=== PATIENT | female | born 1985 | race Caucasian/White ===

== ENCOUNTER → 2019-08-11 12:47 | Outpatient (BNVA) | payer MEDICARE, SELFPAY | PROVIDERS: Family Provider Family Medicine; PCP Family Medicine; Visit Provider Psychiatry & Neurology Psychiatry | DX: F33.42 Major depressive disorder, recurrent, in full remission (principal); F17.210 Nicotine dependence, cigarettes, uncomplicated; F70 Mild intellectual disabilities | CPT/HCPCS: 99213 ==

== ENCOUNTER → 2019-09-16 07:59 | Outpatient (BNVA) | payer MEDICARE, SELFPAY | PROVIDERS: Family Provider Family Medicine; PCP Family Medicine; Visit Provider Psychiatry & Neurology Psychiatry | DX: F33.42 Major depressive disorder, recurrent, in full remission (principal); F17.210 Nicotine dependence, cigarettes, uncomplicated; F70 Mild intellectual disabilities; F33.2 Major depressive disorder, recurrent severe without psychotic features | CPT/HCPCS: 99214 ==

== ENCOUNTER → 2019-09-27 07:34 | Outpatient (BNVA) | payer MEDICARE, SELFPAY | PROVIDERS: Family Provider Family Medicine; PCP Family Medicine; Visit Provider Psychiatry & Neurology Psychiatry | DX: F33.42 Major depressive disorder, recurrent, in full remission (principal); F17.210 Nicotine dependence, cigarettes, uncomplicated; F70 Mild intellectual disabilities | CPT/HCPCS: 99213 ==

== ENCOUNTER → 2019-10-11 07:33 | Outpatient (BNVA) | payer MEDICARE, SELFPAY | PROVIDERS: Family Provider Family Medicine; PCP Family Medicine; Visit Provider Psychiatry & Neurology Psychiatry | DX: F33.42 Major depressive disorder, recurrent, in full remission (principal); F70 Mild intellectual disabilities; F17.210 Nicotine dependence, cigarettes, uncomplicated | CPT/HCPCS: 99213 ==

== ENCOUNTER 2019-10-20 10:31 | Emergency (ER) | payer MEDICARE, MEDICAID, SELFPAY ==
[2019-10-20 10:37] VITALS: BP 111/85; PULSE 90; RESP 18; TEMP 36.9; O2SAT 96; BMI 75.8
--- NOTE | 2019-10-20 10:42 | XR_ITS ---
WS: [id number] ANKLE RIGHT TECHNIQUE: 3 views of the right ankle CLINICAL INFORMATION: injury COMPARISON: None. FINDINGS: Diffuse soft tissue edema. Normal medial and lateral malleolus. Normal ankle mortise. No visualized f ractures. XR/XR ankle RT min 3V* 97297 IMPRESSION: Diffuse soft tissue edema. No visualized fractures.
--- NOTE | 2019-10-20 10:44 | ED_ITS ---
HPI - Extremity Injury (Lower) General: Chief Complaint: Extremity Injury, Lower Stated Complaint: FALL / RIGHT ANKLE Time Seen by Provider: 10/20/19 10:35 Source: patient Mode of arrival: wheelchair Limitations: no limitations History of Present Illness: HPI Narrative: Patient is a 34-year-old female who presents to ED today with complaints of right ankle pain after twisting it and falling. Patient states she has not been able to ambulate since the fall due to pain. No other injury sustained. MD complaint: ankle injury Onset (ago): hour(s) Injury: Right: ankle Type of Injury: eversion Place: home Severity: moderate Relieving factors: immobilization Exacerbating factors: weight bearing, movement and palpation Associated symptoms: Reports no associated symptoms Other symptoms: none Review of Systems Musc: Reports: joint pain and joint swelling Neuro: Denies: numbness in extremities or sensory changes [facility] ED PFSH: Medical History (Updated 10/20/19 @ 11:41 by LUIS Russell) Cigarette smoker Major depression, recurrent, full remission Mild intellectual disability Social History Smoking and tobacco status: current every day smoker Current gender identity: Female Physical Exam Const: COMMON NORMALS: no acute distress, patient oriented x3, no limitations and alert NUTRITIONAL APPEARANCE: obese morbidly obese (pts BMI >75) HENMT: COMMON NORMALS: normocephalic and atraumatic HEAD & SCALP: normocephalic and atraumatic Extremity: GENERAL: Yes normal exam except as noted OTHER: TTP medial R ankle; no deformity; DP/PT pulses intact; cap refill brisk; sensory intact Neuro: COMMON NORMALS: patient oriented x3 SENSORIUM/ORIENTATION: Yes alert Skin: COMMON NORMALS: no rashes or lesions noted GENERAL SKIN EXAM: no rashes or lesions noted Course Vital Signs: Vital signs: Vital Signs Temperature 98.5 F 10/20/19 10:37 Pulse Rate 89 10/20/19 12:30 Respiratory Rate 18 10/20/19 12:30 Blood Pressure 112/82 10/20/19 12:30 Pulse Oximetry 96 10/20/19 12:30 MDM - Extremity Injury (Lower) MDM Narrative: Medical decision making narrative: pt was able to ambulate with her usual walker Imaging Data^: R ankle XR: Radiologist's impression: [address] [address] XRay Report Signed Patient: Charity Blake Unit #: [id number] : 1985 Age/Sex: 34 / F ADM Date: 10/20/19 Loc: ER Room/Bed: Attending Dr: Ordering Provider/Ordering MD: Lilo Hogan Date of Service: 10/20/19 Procedure(s): XR ankle RT min 3V* 89200 Accession Number(s): [id number] Report Number: [id number] WS: [id number] ANKLE RIGHT TECHNIQUE: 3 views of the right ankle CLINICAL INFORMATION: injury COMPARISON: None. FINDINGS: Diffuse soft tissue edema. Normal medial and lateral malleolus. Normal ankle mortise. No visualized fractures. XR/XR ankle RT min 3V* [id number] IMPRESSION: Diffuse soft tissue edema. No visualized fractures. Dictated By: Darryl Zacarias MD Signed By: Darryl Zacarias MD Signed Date/Time: 10/20/19 1111 DD/ 1109 R tib/fib: Radiologist's impression: [address] [place] [address] XRay Report Signed Patient: Charity Blake Unit #: [id number] : 1985 Age/Sex: 34 / F ADM Date: 10/20/19 Loc: ER Room/Bed: Attending Dr: Ordering Provider/Ordering MD: Lilo Hogan Date of Service: 10/20/19 Procedure(s): XR tibia fibula RT 2V 10403 Accession Number(s): [id number] Report Number: [id number] PROCEDURE INFORMATION: Exam: XR Right Tibia and Fibula Exam date and time: 10/20/2019 10:42 AM Age: 34 years old Clinical indication: Injury or trauma; Fall; Initial encounter; Blunt trauma; Lower leg; Right; Injury date: 10/20/19 TECHNIQUE: Imaging protocol: XR Right tibia and fibula. Views: 2 views. COMPARISON: No relevant prior studies available. FINDINGS: Bones/joints: No fracture. There is osteoarthritis in the right knee with possible intra-articular loose bodies. There is medial subluxation of the femur on the tibia potentially related to the degenerative changes. Soft tissues: No acute soft tissue abnormality. XR/XR tibia fibula RT 2V 88279 IMPRESSION: No fracture. Dictated By: Omar Oseguera Signed By: Omar Oseguera Signed Date/Time: 10/20/19 114 DD/ 114 Discharge Plan Discharge Patient Disposition: Home, Self-Care Clinical Impression: Right ankle sprain Qualifiers: Encounter type: initial encounter Involved ligament of ankle: unspecified ligament Qualified Code(s): S93.401A - Sprain of unspecified ligament of right ankle, initial encounter Condition: Stable Prescriptions: No Action Toviaz 4 mg tablet extended release 24 hr 4 mg PO .QHS RF: 0 metformin 500 mg tablet 500 mg PO BID RF: 0 loratadine 10 mg tablet 10 mg PO DAILY RF: 0 tiagabine 4 mg tablet 4 mg PO BID RF: 0 omeprazole 40 mg capsule,delayed release(DR/EC) 40 mg PO DAILY RF: 0 levothyroxine 75 mcg/mL solution 75 mcg PO DAILY RF: 0 albuterol sulfate 90 mcg/actuation HFA aerosol inhaler 2 puff INHALATION Q4H PRNRF: 0 lisinopril 20 mg tablet 20 mg PO DAILY RF: 0 potassium chloride 10 mEq capsule, extended release 10 meq PO DAILY RF: 0 multivitamin Tablet 1 tab PO DAILY RF: 0 metoprolol succinate 100 mg capsule,sprinkle,ER 24hr 100 mg PO DAILY RF: 0 furosemide [Lasix] 20 mg tablet 20 mg PO QAM RF: 0 fluticasone propionate [Flonase Allergy Relief] 50 mcg/actuation spray,joseline pension 2 spray INTRANASAL DAILY RF: 0 ondansetron HCl 4 mg tablet 4 mg PO DAILY PRNRF: 0 tranexamic acid 650 mg tablet 650 mg PO DAILY PRNRF: 0 buspirone 15 mg tablet 15 mg PO TID Qty: 90 RF: 5 trazodone 100 mg tablet 100 mg PO .QHS Qty: 30 RF: 5 citalopram [Celexa] 20 mg tablet 20 mg PO DAILY Qty: 30 RF: 5 citalopram 10 mg tablet 5 mg PO DAILY Qty: 15 RF: 5 naproxen 500 mg tablet 500 mg PO DAILY PRNRF: 0 lorazepam 1 mg tablet See Rx Instructions PO .COMPLEX Qty: 75 RF: 2 Discharge Orders: Discharge Order (Routine); Ordered 10/20/19 Ordered By: Lilo Hogan Referrals: Selma Robles MD [Primary Care Provider] - Patient Instructions: Ankle Sprain (ED), RICE Therapy (ED) Activity Restrictions/Additional Instructions: You may bear weight on ankle as tolerated. Please follow up with primary care in 1-2 weeks for continued pain. Discharge Date/Time: 10/20/19 12:33 Coding Level of Care Code ED Leader Writer for Chg Fwd Exam Expanded Problem Focused
--- NOTE | 2019-10-20 12:00 | PC.NURSE ---
patient up for trial ambulation with walker which she was ablr lynne fo
[2019-10-20] MEDS: ketorolac 60 mg/2 mL INJ IM (12:04)
[2019-10-20 12:30] VITALS: BP 112/82; PULSE 89; RESP 18; O2SAT 96
== END 2019-10-20 12:33 | disposition home or self-care (01) ==
LOC: ER 11:44
PROVIDERS: Emergency Provider Physician Assistant; PCP Family Medicine
DX: S93.401A Sprain of unspecified ligament of right ankle, initial encounter (principal); X50.1XXA Overexertion from prolonged static or awkward postures, initial encounter; F17.210 Nicotine dependence, cigarettes, uncomplicated
CPT/HCPCS: 12345; 73590; 73610; 96372; 99281; 99283; J1885

== ENCOUNTER → 2019-10-26 07:37 | Outpatient (BNVA) | payer MEDICARE, SELFPAY | PROVIDERS: PCP Family Medicine; Visit Provider Psychiatry & Neurology Psychiatry | DX: F33.42 Major depressive disorder, recurrent, in full remission (principal); F17.210 Nicotine dependence, cigarettes, uncomplicated; F70 Mild intellectual disabilities | CPT/HCPCS: 99212 ==

== ENCOUNTER → 2019-11-23 07:26 | Outpatient (BNVA) | payer MEDICARE, SELFPAY | PROVIDERS: PCP Family Medicine; Visit Provider Psychiatry & Neurology Psychiatry | DX: F33.42 Major depressive disorder, recurrent, in full remission (principal); F17.210 Nicotine dependence, cigarettes, uncomplicated; F70 Mild intellectual disabilities | CPT/HCPCS: 99213 ==

== ENCOUNTER → 2019-11-26 13:37 | Outpatient (BNVA) | payer MEDICARE, SELFPAY | PROVIDERS: PCP Family Medicine; Visit Provider Nurse Practitioner | DX: R19.7 Diarrhea, unspecified (principal); N39.0 Urinary tract infection, site not specified | CPT/HCPCS: 81000; 87086 ==

== ENCOUNTER 2019-12-12 18:19 | Emergency (ER) | payer MEDICARE, MEDICAID, SELFPAY ==
[2019-12-12 18:38] VITALS: BP 168/111; PULSE 98; RESP 20; TEMP 36.6; O2SAT 95; BMI 72.8
[2019-12-12 19:17] LABS: Basophils # 0.1 10^3/uL (0.0-0.1); Basophils % 0.8 %; Eosinophils # 0.1 10^3/uL (0.0-0.8); Eosinophils % 1.4 %; Hematocrit 48.3 % (37.0-47.0); Hemoglobin 15.7 g/dL (11.5-15.3); Lymphocytes # 2.7 10^3/uL (0.8-4.8); Lymphocytes % 29.4 %; Mean Corpuscular HGB Conc 32.5 g/dL (30.0-36.0); Mean Corpuscular Volume 86.1 fL (81-99); Mean Platelet Volume 10.8 fL (7.4-10.4); Monocytes # 0.9 10^3/uL (0.2-0.9); Monocytes % 9.8 %; Neutrophils # 5.43 10^3/uL (1.8-7.7); Neutrophils % 58.3 %; Nucleated Red Blood Cells % 0 %; Platelet Count 308 10^3/cmm (130-400); Red Blood Count 5.61 10^6/uL (4.1-5.3); Red Cell Distribution Width 13.7 % (12.1-15.1); White Blood Count 9.3 10^3/uL (4.0-10.0)
[2019-12-12 19:32] LABS: Alanine Aminotransferase 30 U/L (0-33); Albumin Level 4.7 g/dL (3.5-5.2); Alkaline Phosphatase 70 IU/L (35-105); Anion Gap 16.9 (5-19); Aspartate Amino Transferase 20 U/L (0-32); Blood Urea Nitrogen 8 mg/dL (6-20); Calcium 9.9 mg/dL (8.5-10.5); Carbon Dioxide 23 mmol/L (22-29); Chloride 103 mmol/L (98-107); Glomerular Filtration Rate 142.1 mL/min (90-130); Glucose 120 mg/dL (65-115); Lipase 26 U/L (13-60); Osmolality Calculated 285 mOsm/kg (285-295); Potassium 3.9 mmol/L (3.5-5.1); Sodium 139 mmol/L (136-145); Total Bilirubin 0.4 mg/dL (0.15-1.2); Total Protein 7.7 g/dL (6.6-8.7)
[2019-12-12 21:40] LABS: HCG Qualitative Urine. Negative (Negative)
[2019-12-12 21:53] LABS: Add Urine Microscopic? YES; Bilirubin Urine 1+ (NEGATIVE); Blood Urine 3+ (Negative); Glucose Urine UA Norm (Normal); Ketones Urine 1+ (Negative); Leukocyte Esterase Urine 1+ (Negative); Nitrate Urine Negative (Negative); Protein Urine Trace (Negative); Urine Appearance Cloudy (CLEAR); Urine Color Yellow (Yellow); Urobilinogen Urine 1 mg/dL (Negative); pH Urine 5 (5-7)
[2019-12-12 21:57] LABS: Bacteria Urine 1+; Mucus Urine TRACE; RBC Urine 15-25 /hpf (0-2)
[2019-12-12 21:58] LABS: Add Urine Culture? Yes; Amorphous Sediment Urine 3+
[2019-12-12] MEDS: fluconazole 100 mg Tablet 150 MG PO (23:33)
[2019-12-12] MEDS: ondansetron 4 MG Tablet PO (23:34)
[2019-12-12] MEDS: metroNIDAZOLE 500 MG Tablet PO (23:34)
[2019-12-12 23:35] VITALS: RESP 18; O2SAT 94
[2019-12-12] MEDS: oxyCODONE-APAP 5-325 mg Tablet 2 TAB PO (23:35)
[2019-12-12 23:38] VITALS: BP 139/119; PULSE 102; RESP 18; O2SAT 95
--- NOTE | 2019-12-12 23:55 | ED_ITS ---
HPI - Nausea/Vomiting/Diarrhea General: Chief complaint: Nausea/Vomiting/Diarrhea Stated complaint: ABD PAIN Time Seen by Provider: 12/12/19 21:12 History of Present Illness: HPI Narrative: 34-year-old female had been treated for urinary tract infection a little over a week ago. She complains of crampy abdominal pain, vomiting and diarrhea starting yesterday she also states that the antibiotic gave her a yeast infection she has been battling MD elicited complaint: nausea, vomiting and diarrhea Onset (ago): day(s) Description of vomiting: watery Description of diarrhea: watery Associated nausea: Yes Associated abdominal pain: Yes Location of pain: Diffuse Pain consistency: intermittent Severity: moderate Quality: cramping Relieving factors: none Associated symtoms: Reports dysuria and nausea; Denies anxiety, change in vision, chest pain, cough, diaphoresis, dizziness, epistaxis, fevers/chills, headache(s), palpitations or short of breath Review of Systems Const: Denies: diaphoresis Eyes: Denies: change in vision ENMT: Denies: swelling of lips/tongue, epistaxis or sinus pain Card: Denies: chest pain, palpitations, irregular heart rhythm or edema Resp: Denies: dyspnea, productive cough, non-productive cough or wheezing GI: Reports: nausea : Reports: dysuria, urinary frequency, urinary urgency and hematuria Musc: Reports: back pain; Denies: neck pain Skin/Breast: Denies: rash, pruritus or erythema Neuro: Denies: headache(s), dizziness or vertigo Psych: Denies: anxiety PFSH ED PFSH: Medical History (Updated 12/12/19 @ 23:00 by López Fernández DO) Cigarette smoker Major depression, recurrent, full remission Mild intellectual disability Social History Smoking and tobacco status: current every day smoker Current gender identity: Female Female Reproductive History: Date of last menstrual period: 10/14/19 Physical Exam Const: GENERAL APPEARANCE: well developed ORIENTATION/CONSCIOUSNESS: Yes oriented to person, Yes oriented to place and Yes oriented to time HENMT: COMMON NORMALS: normocephalic, external ears normal and Normal external nose present HEAD & SCALP: normocephalic FACE & SINUS: normal facial exam NOSE: Normal external nose present and No nasal discharge present EXTERNAL EAR: Yes external ears normal MOUTH: tongue normal THROAT: posterior oropharynx normal; no peritonsillar mass Eye: COMMON NORMALS: Equal, round and reactive pupils present, EOMs intact bilaterally and conjunctivae normal EYELID: eyelids normal CONJUNCTIVA: Yes conjunctivae normal PUPIL: Yes Equal, round and reactive pupils present Neck/C-Spine: GENERAL: No tracheal deviation Chest: COMMONS NORMALS: normal inspection of the chest CHEST: No tenderness Resp: COMMON NORMALS: clear to auscultation bilaterally EFFORT & INSPECTION: No tachypneic, No respiratory distress, No retractions, No uses accessory muscles and No tracheal deviation AUSCULTATION: clear to auscultation bilaterally, no rhonchi, no wheezes and lung sounds not diminished Cardio: COMMON NORMALS: regular rate and regular rhythm RATE: regular rate RHYTHM: regular rhythm HEART SOUNDS: no murmurs PERIPHERAL PULSES: radial pulses present GI: INSPECTION: No abdominal distension AUSCULTATION: No Hyperactive bowel sounds present and No Hypoactive bowel sounds present PALPATION: No Guarding due to palpation present (GI) and No Rigid due to palpation PERCUSSION: no dullness to percussion and no tympanic to percussion Neuro: SENSORIUM/ORIENTATION: Yes oriented to person, Yes oriented to place and Yes oriented to time Psych: COMMON NORMALS: mental status grossly normal Skin: COMMON NORMALS: no rashes or lesions noted GENERAL SKIN EXAM: no rashes or lesions noted Course Vital Signs: Vital signs: Vital Signs Temperature 98 F 12/12/19 18:38 Pulse Rate 102 H 12/12/19 23:38 Respiratory Rate 18 12/12/19 23:38 Blood Pressure 139/119 12/12/19 23:38 Pulse Oximetry 95 12/12/19 23:38 MDM - Nausea/Vomiting/Diarrhea MDM Narrative: Medical decision making narrative: White blood cell count is 9.3. Other labs are normal, save for urine which seems to be still infected. She will be placed on Ceftin ear for that. This is because she was incompletely treated by Venkat. She will take Flagyl for gastroenteritis symptoms. Antiemetics. Lab Data: Labs: Lab Results 12/12/19 12/12/19 12/12/19 Range/Units 19:07 19:07 21:24 WBC 9.3 (4.0-10.0) 10^3/ uL RBC 5.61 H (4.1-5.3) 10^6/u L Hgb 15.7 H (11.5-15.3) g/dL Hct 48.3 H (37.0-47.0) % MCV 86.1 (81-99) fL MCH 28.0 (28.0-34.0) pg MCHC 32.5 (30.0-36.0) g/dL RDW 13.7 (12.1-15.1) % Plt Count 308 (130-400) 10^3/c mm MPV 10.8 H (7.4-10.4) fL Neut % (Auto) 58.3 % Lymph % (Auto) 29.4 % [place] % (Auto) 9.8 % Eos % (Auto) 1.4 % Baso % (Auto) 0.8 % Neut # (Auto) 5.43 (1.8-7.7) 10^3/u L Lymph # (Auto) 2.7 (0.8-4.8) 10^3/u L [place] # (Auto) 0.9 (0.2-0.9) 10^3/u L Eos # (Auto) 0.1 (0.0-0.8) 10^3/u L Baso # (Auto) 0.1 (0.0-0.1) 10^3/u L Nucleated RBC % (a uto) 0 % Nucleated RBCs # 0.0 /100WBC Sodium 139 (136-145) mmol/L Potassium 3.9 (3.5-5.1) mmol/L Chloride 103 (98-107) mmol/L Carbon Dioxide 23 (22-29) mmol/L Anion Gap 16.9 (5-19) BUN 8 (6-20) mg/dL Creatinine 0.5 (0.5-0.9) mg/dL GFR Calculation 142.1 H (90-130) mL/min Glucose 120 H (65-115) mg/dL Calculated Osmolal ity 285 (285-295) mOsm/k g Calcium 9.9 (8.5-10.5) mg/dL Total Bilirubin 0.4 (0.15-1.2) mg/dL AST 20 (0-32) U/L ALT 30 (0-33) U/L Alkaline Phosphata se 70 (35-105) IU/L Total Protein 7.7 (6.6-8.7) g/dL Albumin 4.7 (3.5-5.2) g/dL Globulin 3.0 (1.3-4.6) g/dL Lipase 26 (13-60) U/L HCG, Qual Negative (Negative) Urine Color (Yellow) Urine Appearance (CLEAR) Urine pH (5-7) Ur Specific Gravit y (1.005-1.030) Urine Protein (Negative) Urine Glucose (UA) (Normal) Urine Ketones (Negative) Urine Blood (Negative) Urine Nitrate (Negative) Urine Bilirubin (NEGATIVE) Urine Urobilinogen (Negative) mg/dL Ur Leukocyte Miesha ase (Negative) Urine RBC (0-2) /hpf Urine WBC (0-5) /hpf Ur Squamous Epith Cells (0-5) Amorphous Sediment Urine Bacteria (NONE) Coarse Granular Ca sts /lpf Urine Mucus 12/12/19 Range/Units 21:24 WBC (4.0-10.0) 10^3/ uL RBC (4.1-5.3) 10^6/u L Hgb (11.5-15.3) g/dL Hct (37.0-47.0) % MCV (81-99) fL MCH (28.0-34.0) pg MCHC (30.0-36.0) g/dL RDW (12.1-15.1) % Plt Count (130-400) 10^3/c mm MPV (7.4-10.4) fL Neut % (Auto) % Lymph % (Auto) % [place] % (Auto) % Eos % (Auto) % Baso % (Auto) % Neut # (Auto) (1.8-7.7) 10^3/u L Lymph # (Auto) (0.8-4.8) 10^3/u L [place] # (Auto) (0.2-0.9) 10^3/u L Eos # (Auto) (0.0-0.8) 10^3/u L Baso # (Auto) (0.0-0.1) 10^3/u L Nucleated RBC % (a uto) % Nucleated RBCs # /100WBC Sodium (136-145) mmol/L Potassium (3.5-5.1) mmol/L Chloride (98-107) mmol/L Carbon Dioxide (22-29) mmol/L Anion Gap (5-19) BUN (6-20) mg/dL Creatinine (0.5-0.9) mg/dL GFR Calculation (90-130) mL/min Glucose (65-115) mg/dL Calculated Osmolal ity (285-295) mOsm/k g Calcium (8.5-10.5) mg/dL Total Bilirubin (0.15-1.2) mg/dL AST (0-32) U/L ALT (0-33) U/L Alkaline Phosphata se (35-105) IU/L Total Protein (6.6-8.7) g/dL Albumin (3.5-5.2) g/dL Globulin (1.3-4.6) g/dL Lipase (13-60) U/L HCG, Qual (Negative) Urine Color Yellow (Yellow) Urine Appearance Cloudy (CLEAR) Urine pH 5 (5-7) Ur Specific Gravit y 1.030 (1.005-1.030) Urine Protein Trace (Negative) Urine Glucose (UA) Norm (Normal) Urine Ketones 1+ H (Negative) Urine Blood 3+ H (Negative) Urine Nitrate Negative (Negative) Urine Bilirubin 1+ H (NEGATIVE) Urine Urobilinogen 1 H (Negative) mg/dL Ur Leukocyte Miesha ase 1+ H (Negative) Urine RBC 15-25 H (0-2) /hpf Urine WBC 10-15 H (0-5) /hpf Ur Squamous Epith Cells 5-10 H (0-5) Amorphous Sediment 3+ Urine Bacteria 1+ H (NONE) Coarse Granular Ca sts 5-10 H /lpf Urine Mucus Trace Discharge Plan Discharge Patient Disposition: Home, Self-Care Clinical Impression: Gastroenteritis Urinary tract infection Qualifiers: Urinary tract infection type: acute cystitis Hematuria presence: with hematuria Qualified Code(s): N30.01 - Acute cystitis with hematuria Condition: Stable Prescriptions: New Flagyl 500 mg tablet 500 mg PO Q8H 7 Days Qty: 21 RF: 0 Zofran 4 mg tablet 4 mg PO Q6H PRN (Reason: nausea and vomiting) Qty: 10 RF: 0 No Action ciprofloxacin HCl 500 mg tablet 500 mg PO BID 5 Days Qty: 10 RF: 0 Toviaz 4 mg tablet extended release 24 hr 4 mg PO .QHS RF: 0 metformin 500 mg tablet 500 mg PO BID RF: 0 loratadine 10 mg tablet 10 mg PO DAILY RF: 0 tiagabine 4 mg tablet 4 mg PO BID RF: 0 omeprazole 40 mg capsule,delayed release(DR/EC) 40 mg PO DAILY RF: 0 levothyroxine 75 mcg/mL solution 75 mcg PO DAILY RF: 0 albuterol sulfate 90 mcg/actuation HFA aerosol inhaler 2 puff INHALATION Q4H PRNRF: 0 lisinopril 20 mg tablet 20 mg PO DAILY RF: 0 potassium chloride 10 mEq capsule, extended release 10 meq PO DAILY RF: 0 multivitamin Tablet 1 tab PO DAILY RF: 0 metoprolol succinate 100 mg capsule,sprinkle,ER 24hr 100 mg PO DAILY RF: 0 furosemide [Lasix] 20 mg tablet 20 mg PO QAM RF: 0 fluticasone propionate [Flonase Allergy Relief] 50 mcg/actuation spray,suspension 2 spray INTRANASAL DAILY RF: 0 ondansetron HCl 4 mg tablet 4 mg PO DAILY PRNRF: 0 tranexamic acid 650 mg tablet 650 mg PO DAILY PRNRF: 0 buspirone 15 mg tablet 15 mg PO TID Qty: 90 RF: 5 trazodone 100 mg tablet 100 mg PO .QHS Qty: 30 RF: 5 citalopram [Celexa] 20 mg tablet 20 mg PO DAILY Qty: 30 RF: 5 citalopram 10 mg tablet 5 mg PO DAILY Qty: 15 RF: 5 naproxen 500 mg tablet 500 mg PO DAILY PRNRF: 0 lorazepam 1 mg tablet See Rx Instructions PO .COMPLEX Qty: 75 RF: 2 Referrals: Selma Robles MD [Primary Care Provider] - 4-7 days Discharge Diet: Advance as tolerated and Clear Liquid Discharge Activity: Increase activity as tolerated Patient Instructions: Gastroenteritis (ED) Activity Restrictions/Additional Instructions: Return for continued abdominal pain despite treatment, continued diarrhea and vomiting despite treatment, fever greater than 100, other concerning symptoms. Continue your antibiotic for your urinary tract infection. Your yeast infection should be treated by the medicine you were given in the ER. Discharge Date/Time: 12/12/19 23:40 Coding Level of Care Code ED Industry Consultant for Kleber Ramos
== END 2019-12-12 23:40 | disposition home or self-care (01) ==
PROVIDERS: Emergency Medicine; Emergency Provider Emergency Medicine; PCP Family Medicine
DX: N30.01 Acute cystitis with hematuria (principal); K52.9 Noninfective gastroenteritis and colitis, unspecified; F17.210 Nicotine dependence, cigarettes, uncomplicated
CPT/HCPCS: 12345; 80053; 81001; 81003; 81025; 83690; 85025; 87086; 99282; 99283; Q0162

== ENCOUNTER → 2019-12-14 07:37 | Outpatient (BNVA) | payer MEDICARE, SELFPAY | PROVIDERS: PCP Family Medicine; Visit Provider Psychiatry & Neurology Psychiatry | DX: F33.42 Major depressive disorder, recurrent, in full remission (principal); F17.210 Nicotine dependence, cigarettes, uncomplicated; F70 Mild intellectual disabilities | CPT/HCPCS: 99213 ==

== ENCOUNTER 2020-01-11 20:00 | Outpatient (CLI) | payer MEDICARE, MEDICAID, SELFPAY | END 2020-01-11 20:01 | disposition home or self-care (01) | LOC: SLEEP 01-12 08:27 | PROVIDERS: PCP Family Medicine; Visit Provider Family Medicine | DX: F33.42 Major depressive disorder, recurrent, in full remission (principal); F17.210 Nicotine dependence, cigarettes, uncomplicated; F70 Mild intellectual disabilities; G47.33 Obstructive sleep apnea (adult) (pediatric) | CPT/HCPCS: 95810; 99213 ==

== ENCOUNTER 2020-02-09 17:46 | Emergency (ER) | payer MEDICARE, MEDICAID, SELFPAY ==
[2020-02-09 17:53] VITALS: BP 140/73; PULSE 103; RESP 18; TEMP 36.6; O2SAT 98; BMI 68.9
--- NOTE | 2020-02-09 18:11 | ED_ITS ---
HPI - Back Pain/Injury General: Chief Complaint: Back Pain/Injury Stated Complaint: bad pain from bladder stones? Time Seen by Provider: 02/09/20 17:56 Source: patient Mode of arrival: ambulatory Limitations: no limitations History of Present Illness: HPI Narrative: 34-year-old female who is morbidly obese and has a history of kidney stones. Patient states that she has been vazquez ving flank pain along with pain over her bladder. States this does not like her previous kidney stones. She is scheduled to see Dr. Salinas tomorrow and have a KUB. She denies any fever. States pain is currently a 6 out of 10. Denies any worsening or improving factors. Associated symptoms: Reports abdominal pain; Deny chills, dysuria or fever(s) Review of Systems Const: Denies: fever(s), chills, body aches or change in appetite Eyes: Denies: blurry vision or eye discomfort ENMT: Denies: throat pain or dental pain Card: Denies: chest pain Resp: Denies: dyspnea GI: Reports: abdominal pain : Denies: dysuria Musc: Denies: neck pain or back pain Skin/Breast: Denies: rash Neuro: Denies: headache(s) Psych: Denies: depression Liang/Lymph: Denies: easy bruising All/Imm: Denies: urticaria PFSH ED PFSH: Medical History Cigarette smoker Major depression, recurrent, full remission Mild intellectual disability Social History Smoking and tobacco status: current every day smoker Current gender identity: Female Female Reproductive History: Date of last menstrual period: 10/14/19 Physical Exam Const: COMMON NORMALS: no acute distress, patient oriented x3 and healthy appearing NUTRITIONAL APPEARANCE: obese morbidly obese HENMT: COMMON NORMALS: normocephalic and atraumatic HEAD & SCALP: normocephalic and atraumatic Eye: COMMON NORMALS: Equal, round and reactive pupils present and EOMs intact bilaterally PUPIL: Yes Equal, round and reactive pupils present Neck/C-Spine: COMMON NORMALS: full ROM and supple Chest: COMMONS NORMALS: normal inspection of the chest and normal palpation of entire chest wall Resp: COMMON NORMALS: normal respiratory effort, No retractions, No use of accessory muscles and clear to auscultation bilaterally AUSCULTATION: clear to auscultation bilaterally Cardio: COMMON NORMALS: regular rate, regular rhythm and No murmurs present (Cardio) RATE: regular rate RHYTHM: regular rhythm GI: COMMON NORMALS: Normal to inspection, nondistended, normoactive bowel sounds present, Soft to palpation, non-tender and no masses PALPATION: Yes Soft to palpation Extremity: COMMON NORMALS: normal to inspection and full ROM Neuro: COMMON NORMALS: patient oriented x3, moves all extremities and no focal motor deficits Psych: COMMON NORMALS: mental status grossly normal, Normal thought process present and cooperative THOUGHT PROCESS: Normal thought process present Skin: COMMON NORMALS: no rashes or lesions noted and no wounds GENERAL SKIN EXAM: no rashes or lesions noted Course Vital Signs: Vital signs: Vital Signs Temperature 97.8 F 02/09/20 17:53 Pulse Rate 86 02/09/20 20:39 Respiratory Rate 14 02/09/20 20:39 Blood Pressure 163/109 02/09/20 20:39 Pulse Oximetry 97 02/09/20 20:39 MDM - Back Pain/Injury MDM Narrative: Medical decision making narrative: Neetu presents here with abdominal pain is found to have a urinary tract infection. Patient's blood work here is normal and she has no signs of acute abdomen. KUB is negative as well. Patient is unable to fit in the CT scanner but do not feel she needs an emergent CT at this time. She is to follow-up with Dr. Salinas as scheduled tomorrow a nd return if worsening. She understands and agrees to plan. Lab Data: Labs: Lab Results 02/09/20 02/09/20 02/09/20 Range/Units 18:03 18:11 18:11 WBC 11.2 H (4.0-10.0) 10^3/ uL RBC 5.44 H (4.1-5.3) 10^6/u L Hgb 15.4 H (11.5-15.3) g/dL Hct 47.2 H (37.0-47.0) % MCV 86.8 (81-99) fL MCH 28.3 (28.0-34.0) pg MCHC 32.6 (30.0-36.0) g/dL RDW 13.5 (12.1-15.1) % Plt Count 254 (130-400) 10^3/c mm MPV 10.5 H (7.4-10.4) fL Neut % (Auto) 66.6 % Lymph % (Auto) 22.7 % Sanders % (Auto) 8.4 % Eos % (Auto) 1.3 % Baso % (Auto) 0.6 % Neut # (Auto) 7.44 (1.8-7.7) 10^3/u L Lymph # (Auto) 2.5 (0.8-4.8) 10^3/u L Sanders # (Auto) 0.9 (0.2-0.9) 10^3/u L Eos # (Auto) 0.2 (0.0-0.8) 10^3/u L Baso # (Auto) 0.1 (0.0-0.1) 10^3/u L Nucleated RBC % (a uto) 0 % Nucleated RBCs # 0.0 /100WBC Sodium 137 (136-145) mmol/L Potassium 4.0 (3.5-5.1) mmol/L Chloride 103 (98-107) mmol/L Carbon Dioxide 25 (22-29) mmol/L Anion Gap 13.0 (5-19) BUN 9 (6-20) mg/dL Creatinine 0.6 (0.5-0.9) mg/dL GFR Calculation 115.1 (90-130) mL/min Glucose 116 H (65-115) mg/dL Calculated Osmolal ity 281 L (285-295) mOsm/k g Calcium 9.3 (8.5-10.5) mg/dL Total Bilirubin 0.5 (0.15-1.2) mg/dL AST 19 (0-32) U/L ALT 25 (0-33) U/L Alkaline Phosphata se 64 (35-105) IU/L Total Protein 6.7 (6.6-8.7) g/dL Albumin 4.1 (3.5-5.2) g/dL Globulin 2.6 (1.3-4.6) g/dL Lipase 33 (13-60) U/L Urine Color Yellow (Yellow) Urine Appearance Sl hazy (CLEAR) Urine pH 5 (5-7) Ur Specific Gravit y 1.025 (1.005-1.030) Urine Protein Neg (Negative) Urine Glucose (UA) Norm (Normal) Urine Ketones Negative (Negative) Urine Blood 2+ H (Negative) Urine Nitrate Positive H (Negative) Urine Bilirubin Neg (Negative) Urine Urobilinogen 1 H (Negative) mg/dL Ur Leukocyte Miesha ase Trace H (Negative) Urine RBC 15-25 H (0-2) /hpf Urine WBC 5-10 H (0-5) /hpf Ur Squamous Epith Cells 15-25 H (0-5) /hpf Amorphous Sediment Not Reportable Urine Bacteria 4+ H (NONE) /hpf Discharge Plan Discharge Patient Disposition: Home Clinical Impression: Acute cystitis Qualifiers: Hematuria presence: without hematuria Qualified Code(s): N30.00 - Acute cystitis without hematuria Condition: Stable Prescriptions: [place] 5-325 mg tablet 1 tab PO Q6H PRN (Reason: pain) Qty: 14 RF: 0 Keflex 500 mg capsule 500 mg PO Q6H 7 Days Qty: 28 RF: 0 ondansetron 4 mg tablet,disintegrating 4 mg PO Q6H PRN (Reason: nausea and vomiting) Qty: 14 RF: 0 No Action Toviaz 4 mg tablet extended release 24 hr 4 mg PO .QHS RF: 0 metformin 500 mg tablet 500 mg PO BID RF: 0 loratadine 10 mg tablet 10 mg PO DAILY RF: 0 tiagabine 4 mg tablet 4 mg PO BID RF: 0 omeprazole 40 mg capsule,delayed release(DR/EC) 40 mg PO DAILY RF: 0 levothyroxine 75 mcg/mL solution 75 mcg PO DAILY RF: 0 albuterol sulfate 90 mcg/actuation HFA aerosol inhaler 2 puff INHALATION Q4H PRN (Reason: Shortness Of Breath) RF: 0 lisinopril 20 mg tablet 20 mg PO DAILY RF: 0 potassium chloride 10 mEq capsule, extended release 10 meq PO DAILY RF: 0 multivitamin Tablet 1 tab PO DAILY RF: 0 metoprolol succinate 100 mg capsule,sprinkle,ER 24hr 100 mg PO DAILY RF: 0 furosemide [Lasix] 20 mg tablet 20 mg PO QAM RF: 0 fluticasone propionate [Flonase Allergy Relief] 50 mcg/actuation spray,suspension 2 spray INTRANASAL DAILY RF: 0 tranexamic acid 650 mg tablet 650 mg PO DAILY PRN (Reason: unknown) RF: 0 buspirone 15 mg tablet 15 mg PO TID Qty: 90 RF: 5 naproxen 500 mg tablet 500 mg PO DAILY PRN (Reason: Pain) RF: 0 citalopram 10 mg tablet 5 mg PO DAILY Qty: 15 RF: 5 citalopram [Celexa] 20 mg tablet 20 mg PO DAILY Qty: 30 RF: 5 lorazepam 1 mg tablet See Rx Instructions PO .COMPLEX Qty: 75 RF: 2 trazodone 100 mg tablet 100 mg PO .QHS Qty: 30 RF: 5 fluconazole 150 mg tablet 150 mg PO DAILY RF: 0 Nystop 100,000 unit/gram powder See Rx Instructions .ROUTE .COMPLEX RF: 0 ibuprofen 600 mg tablet 600 mg PO Q6H PRN (Reason: Pain) RF: 0 ondansetron HCl [Zofran] 4 mg tablet 4 mg PO Q6H PRN (Reason: nausea and vomiting) Qty: 10 RF: 0 Discharge Orders: Discharge Order (Routine); Ordered 02/09/20 Ordered By: Arie Raza Referrals: Selma Robles MD [Primary Care Provider] - Discharge Diet: Advance as tolerated Discharge Activity: Resume usual activity Patient Instructions: Urinary Tract Infection in Women (ED) Coding Level of Care Code ED Food Service [facility] F[facility] Exam Comprehensive
[2020-02-09 18:15] LABS: Basophils # 0.1 10^3/uL (0.0-0.1); Basophils % 0.6 %; Eosinophils # 0.2 10^3/uL (0.0-0.8); Eosinophils % 1.3 %; Hematocrit 47.2 % (37.0-47.0); Hemoglobin 15.4 g/dL (11.5-15.3); Lymphocytes # 2.5 10^3/uL (0.8-4.8); Lymphocytes % 22.7 %; Mean Corpuscular HGB Conc 32.6 g/dL (30.0-36.0); Mean Corpuscular Hemoglobin 28.3 pg (28.0-34.0); Mean Corpuscular Volume 86.8 fL (81-99); Mean Platelet Volume 10.5 fL (7.4-10.4); Monocytes # 0.9 10^3/uL (0.2-0.9); Monocytes % 8.4 %; Neutrophils # 7.44 10^3/uL (1.8-7.7); Neutrophils % 66.6 %; Nucleated Red Blood Cells % 0 %; Platelet Count 254 10^3/cmm (130-400); Red Blood Count 5.44 10^6/uL (4.1-5.3); Red Cell Distribution Width 13.5 % (12.1-15.1); White Blood Count 11.2 10^3/uL (4.0-10.0)
[2020-02-09 18:33] LABS: Specific Gravity, Urine 1.025 (1.005-1.030); Urine Appearance SL Hazy (CLEAR); Urine Color Yellow (Yellow); pH Urine 5 (5-7)
[2020-02-09 18:34] LABS: Add Urine Microscopic? YES; Bilirubin Urine Neg (Negative); Blood Urine 2+ (Negative); Glucose Urine UA Norm (Normal); Ketones Urine Negative (Negative); Leukocyte Esterase Urine Trace (Negative); Nitrate Urine Positive (Negative); Protein Urine Neg (Negative); Urobilinogen Urine 1 mg/dL (Negative)
[2020-02-09] MEDS: sodium chloride 0.9% 1,000 ML 999 ML IV (18:34)
[2020-02-09] MEDS: morphine 4 mg/mL SDV 1 mL IVP (18:35)
[2020-02-09] MEDS: ondansetron 2 mg/ML SDV 2 mL 4 MG IVP (18:35)
[2020-02-09 18:36] LABS: Add Urine Culture? No; Bacteria Urine 4+ /hpf; RBC Urine 15-25 /hpf (0-2); Squamous Epithelial Cell Urine 15-25 /hpf (0-5)
[2020-02-09 18:37] VITALS: BP 136/76; PULSE 89; RESP 14; O2SAT 100
--- NOTE | 2020-02-09 18:39 | XR_ITS ---
WS: [id number] KUB, 02/09/2020 Clinical Data: abd pain Comparison: UB, 11/04/2017 Findings: No abnormal intraabdominal masses or calcifications are seen. There is no dilatated small bowel or ev idence of obstruction. There is an IUD in the region of the uterus. The lower thorax, lumbar spine, pelvis and hips are not remarkable. XR/XR KUB [id number] Impression: Negative KUB.
[2020-02-09 18:48] LABS: Alanine Aminotransferase 25 U/L (0-33); Albumin Level 4.1 g/dL (3.5-5.2); Alkaline Phosphatase 64 IU/L (35-105); Aspartate Amino Transferase 19 U/L (0-32); Blood Urea Nitrogen 9 mg/dL (6-20); Calcium 9.3 mg/dL (8.5-10.5); Carbon Dioxide 25 mmol/L (22-29); Chloride 103 mmol/L (98-107); Globulin 2.6 g/dL (1.3-4.6); Glomerular Filtration Rate 115.1 mL/min (90-130); Glucose 116 mg/dL (65-115); Lipase 33 U/L (13-60); Osmolality Calculated 281 mOsm/kg (285-295); Sodium 137 mmol/L (136-145); Total Bilirubin 0.5 mg/dL (0.15-1.2); Total Protein 6.7 g/dL (6.6-8.7)
[2020-02-09 20:39] VITALS: BP 163/109; PULSE 86; RESP 14; O2SAT 97
[2020-02-09] MEDS: cefTRIAXone 1,000 MG in sodium chloride 0.9% (plus) 50 ML 100 MG IV (20:46)
[2020-02-09 21:20] VITALS: BP 129/94; PULSE 85; RESP 18; TEMP 36.4; O2SAT 98
== END 2020-02-09 21:29 | disposition home or self-care (01) ==
PROVIDERS: Emergency Provider Emergency Medicine; PCP Family Medicine
DX: N30.00 Acute cystitis without hematuria (principal); F17.210 Nicotine dependence, cigarettes, uncomplicated
CPT/HCPCS: 12345; 36415; 74018; 80053; 81001; 83690; 85025; 96360; 96361; 96365; 96374; 96375; 99283; J0696; J2270; J2405; J7030

== ENCOUNTER 2020-02-10 10:00 | Outpatient (CLI) | payer MEDICARE, MEDICAID, SELFPAY | END 2020-02-10 10:01 | disposition home or self-care (01) | LOC: RAD 01-02 04:42 | PROVIDERS: PCP Family Medicine; Visit Provider Nurse Practitioner Family | DX: F33.42 Major depressive disorder, recurrent, in full remission (principal) | CPT/HCPCS: 90834 ==

== ENCOUNTER 2020-02-10 20:00 | Outpatient (CLI) | payer MEDICARE, MEDICAID, SELFPAY | END 2020-02-10 20:01 | disposition home or self-care (01) | LOC: SLEEP 02-11 08:43 | PROVIDERS: PCP Family Medicine; Visit Provider Family Medicine | DX: G47.33 Obstructive sleep apnea (adult) (pediatric) (principal) | CPT/HCPCS: 81001; 95811 ==

== ENCOUNTER → 2020-03-08 07:27 | Outpatient (BNVA) | payer MEDICARE, SELFPAY | PROVIDERS: PCP Family Medicine; Visit Provider Psychiatry & Neurology Psychiatry | DX: F33.42 Major depressive disorder, recurrent, in full remission (principal); F17.210 Nicotine dependence, cigarettes, uncomplicated; F70 Mild intellectual disabilities | CPT/HCPCS: 99213 ==

== ENCOUNTER 2020-03-13 13:38 | Outpatient (CLI) | payer MEDICARE, SELFPAY | END 2020-03-13 13:39 | disposition home or self-care (01) | LOC: RAD 13:41 | PROVIDERS: PCP Family Medicine; Visit Provider Urology | DX: N39.0 Urinary tract infection, site not specified (principal) | CPT/HCPCS: 80053; 81001 ==

== ENCOUNTER 2020-03-26 16:44 | Inpatient (IN) | payer MEDICARE, MEDICAID, SELFPAY ==
[2020-03-26] VITALS (12 sets, daily range): BP systolic 129–159; BP diastolic 72–122; PULSE 76–111; RESP 16–28; TEMP 36.2–37.1; O2SAT 92–98; BMI 65.9
--- NOTE | 2020-03-26 17:04 | W.ED.PSYCH ---
Documented by User: Arie Raza MD 03/26/20 18:05 HPI - Psych General: Chief Complaint: Psychiatric Symptoms Stated Complaint: OD Time Seen by Provider: 03/26/20 16:58 Source: patient Mode of arrival: ambulatory Limitations: no limitations History of Present Illness: HPI Narrative: 34-year-old female states she has been having severe depression and states she took 22 1 mg Ativan pills today she states to numb her feelings and her depression. Patient denies any suicidality at this time. Patient does have a extensive psychiatric history. She is currently awake and alert and able answer my questions. She states she took these roughly at 3 30-4. complaint: suicidal ideation Associated symptoms: Reports depression and suicidal ideation Review of Systems Const: Denies: fever(s), chills, body aches or change in appetite Eyes: Denies: blurry vision or eye discomfort ENMT: Denies: throat pain or dental pain Card: Denies: chest pain Resp: Denies: dyspnea GI: Denies: abdominal pain, nausea, vomiting or diarrhea : Denies: dysuria Musc: Denies: neck pain or back pain Skin/Breast: Denies: rash Neuro: Denies: headache(s) Psych: Reports: depression and suicidal ideation Liang/Lymph: Denies: easy bruising All/Imm: Denies: urticaria PFSH ED PFSH: Medical History Breakthrough seizure Cigarette smoker Flank pain with history of urolithiasis Gastritis History of kidney stones Major depression, recurrent, full remission Migraine Mild intellectual disability Morbid obesity Recurrent UTI Sleep apnea Surgical History History of carpal tunnel surgery Hx of tympanostomy Family History Other Unknown family medical history Social History Smoking and tobacco status: current every day smoker Alcohol intake: current Alcohol intake frequency: holidays/special occasions only Lives independently: No Household members: family Marital status: Single Current occupational status: disabled Current gender identity: Female Female Reproductive History: Date of last menstrual period: 10/14/19 Physical Exam Const: COMMON NORMALS: no acute distress, patient oriented x3 and healthy appearing HENMT: COMMON NORMALS: normocephalic and atraumatic HEAD & SCALP: normocephalic and atraumatic Eye: COMMON NORMALS: Equal, round and reactive pupils present and EOMs intact bilaterally PUPIL: Yes Equal, round and reactive pupils present Neck/C-Spine: COMMON NORMALS: full ROM and supple Chest: COMMONS NORMALS: normal inspection of the chest and normal palpation of entire chest wall Resp: COMMON NORMALS: normal respiratory effort, No retractions, No use of accessory muscles and clear to auscultation bilaterally AUSCULTATION: clear to auscultation bilaterally Cardio: COMMON NORMALS: regular rate, regular rhythm and No murmurs present (Cardio) RATE: regular rate RHYTHM: regular rhythm GI: COMMON NORMALS: Normal to inspection, nondistended, normoactive bowel sounds present, Soft to palpation, non-tender and no masses PALPATION: Yes Soft to palpation Extremity: COMMON NORMALS: normal to inspection and full ROM Neuro: COMMON NORMALS: patient oriented x3, moves all extremities and no focal motor deficits Psych: COMMON NORMALS: mental status grossly normal, Normal thought process present and cooperative MOOD & AFFECT: Yes depressed mood THOUGHT PROCESS: Normal thought process present Skin: COMMON NORMALS: no rashes or lesions noted and no wounds GENERAL SKIN EXAM: no rashes or lesions noted MDM - Psych MDM Narrative: Medical decision making narrative: I spoke to Dr. Lynne of psychiatry who is consulted. Patient will likely need admission to the ICU as she is an overdose. Patient continues to be awake down here and will give her charcoal. Labs are still pending and care turned over to Dr. Fernández. Lab Data: Labs: Lab Results 03/26/20 03/26/20 03/26/20 Range/Units 17:07 17:07 17:38 WBC Cancelled Corrected WBC Cancelled RBC Cancelled Hgb Cancelled Hct Cancelled MCV Cancelled MCH Cancelled MCHC Cancelled RDW Cancelled Plt Count Cancelled MPV Cancelled Gran % Cancelled Neut % (Auto) Cancelled Lymph % (Auto) Cancelled [place] % (Auto) Cancelled Eos % (Auto) Cancelled Baso % (Auto) Cancelled Neut # (Auto) Cancelled Lymph # (Auto) Cancelled Hardeman # (Auto) Cancelled Eos # (Auto) Cancelled Baso # (Auto) Cancelled Absolute Gran (aut o) Cancelled Nucleated RBC % (a uto) Cancelled Nucleated RBCs # Cancelled Sodium (136-145) mmol/L Potassium (3.5-5.1) mmol/L Chloride (98-107) mmol/L Carbon Dioxide (22-29) mmol/L Anion Gap (5-19) BUN (6-20) mg/dL Creatinine (0.5-0.9) mg/dL GFR Calculation (90-130) mL/min Glucose (65-115) mg/dL Calculated Osmolal ity (285-295) mOsm/k g Calcium (8.5-10.5) mg/dL Total Bilirubin (0.15-1.2) mg/dL AST (0-32) U/L ALT (0-33) U/L Alkaline Phosphata se (35-105) IU/L Total Protein (6.6-8.7) g/dL Albumin (3.5-5.2) g/dL Globulin (1.3-4.6) g/dL HCG, Qual Negative (Negative) Salicylates (3-10) mg/dL Urine Opiates Scre en Positive H (Negative) ng/mL Acetaminophen (10-30) ug/mL Ur Barbiturates Sc reen Negative (Negative) ng/mL Ur Phencyclidine S crn Negative (Negative) ng/mL Ur Amphetamines Sc reen Negative (Negative) ng/mL U Benzodiazepines Scrn Positive H (Negative) ng/mL Urine Cocaine Scre en Negative (Negative) ng/mL U Marijuana (THC) Screen Negative (Negative) ng/mL Ethyl Alcohol (0-10) mg/dL 03/26/20 03/26/20 Range/Units 17:38 18:39 WBC 9.4 Corrected WBC RBC 5.68 H Hgb 16.1 H Hct 49.9 H MCV 87.9 MCH 28.3 MCHC 32.3 RDW 13.3 Plt Count 316 MPV 10.5 H Gran % Neut % (Auto) 58.3 Lymph % (Auto) 29.9 Hardeman % (Auto) 8.8 Eos % (Auto) 1.6 Baso % (Auto) 0.9 Neut # (Auto) 5.48 Lymph # (Auto) 2.8 Hardeman # (Auto) 0.8 Eos # (Auto) 0.2 Baso # (Auto) 0.1 Absolute Gran (aut o) Nucleated RBC % (a uto) 0 Nucleated RBCs # 0.0 Sodium 140 (136-145) mmol/L Potassium 4.2 (3.5-5.1) mmol/L Chloride 103 (98-107) mmol/L Carbon Dioxide 27 (22-29) mmol/L Anion Gap 14.2 (5-19) BUN 10 (6-20) mg/dL Creatinine 0.6 (0.5-0.9) mg/dL GFR Calculation 115.1 (90-130) mL/min Glucose 110 (65-115) mg/dL Calculated Osmolal ity 290 (285-295) mOsm/k g Calcium 9.5 (8.5-10.5) mg/dL Total Bilirubin 0.3 (0.15-1.2) mg/dL AST 23 (0-32) U/L ALT 24 (0-33) U/L Alkaline Phosphata se 78 (35-105) IU/L Total Protein 6.9 (6.6-8.7) g/dL Albumin 4.1 (3.5-5.2) g/dL Globulin 2.8 (1.3-4.6) g/dL HCG, Qual (Negative) Salicylates 0.9 L (3-10) mg/dL Urine Opiates Scre en (Negative) ng/mL Acetaminophen < 5.0 L (10-30) ug/mL Ur Barbiturates Sc reen (Negative) ng/mL Ur Phencyclidine S crn (Negative) ng/mL Ur Amphetamines Sc reen (Negative) ng/mL U Benzodiazepines Scrn (Negative) ng/mL Urine Cocaine Scre en (Negative) ng/mL U Marijuana (THC) Screen (Negative) ng/mL Ethyl Alcohol < 10 (0-10) mg/dL Critical Care Time Critical Care Time: Critical Care Time: Yes Total Critical Care Time: 36 Attestation: This case had a high probability of a clinically significant, sudden, or life threatening deterioration of this patient's condition which required my full and direct attention, intervention and personal management. Discharge Plan Discharge Patient Disposition: Admitted As Inpatient Admit Provider: Azul Iqbal Clinical Impression: Overdose Qualifiers: Encounter type: initial encounter Injury intent: intentional self-harm Qualified Code(s): T50.902A - Poisoning by unspecified drugs, medicaments and biological substances, intentional self-harm, initial encounter Condition: Stable Referrals: Selma Robles MD [Primary Care Provider] - Coding Level of Care Code ED Pharmacist [facility] Exam Comprehensive Documented by User: López Fernández, 03/26/20 22:04 HPI - Psych General: Chief Complaint: Psychiatric Symptoms Stated Complaint: OD Time Seen by Provider: 03/26/20 16:58 PFSH ED PFSH: Medical History Breakthrough seizure Cigarette smoker Flank pain with history of urolithiasis Gastritis History of kidney stones Major depression, recurrent, full remission Migraine Mild intellectual disability Morbid obesity Recurrent UTI Sleep apnea Surgical History History of carpal tunnel surgery Hx of tympanostomy Family History Other Unknown family medical history Social History Smoking and tobacco status: current every day smoker Alcohol intake: current Alcohol intake frequency: holidays/special occasions only Lives independently: No Household members: family Marital status: Single Current occupational status: disabled Current gender identity: Female MDM - Psych MDM Narrative: Medical decision making narrative: 34-year-old female checked out to me by Dr. Raza at shift change. She reportedly taken several Ativan between 330 and 4 PM. She has been rather somnolent, but awakens appropriately to voice, and is oriented when she wakes. She has drank water here. We do not have any ICU beds available for this patient. Because of this, she will be on telemetry on the floor with a sitter. This will be until she is more medically stable to go to the NPU. Lab Data: Labs: Lab Results 03/26/20 03/26/20 03/26/20 Range/Units 17:07 17:07 17:38 WBC Cancelled Corrected WBC Cancelled RBC Cancelled Hgb Cancelled Hct Cancelled MCV Cancelled MCH Cancelled MCHC Cancelled RDW Cancelled Plt Count Cancelled MPV Cancelled Gran % Cancelled Neut % (Auto) Cancelled Lymph % (Auto) Cancelled Hardeman % (Auto) Cancelled Eos % (Auto) Cancelled Baso % (Auto) Cancelled Neut # (Auto) Cancelled Lymph # (Auto) Cancelled Hardeman # (Auto) Cancelled Eos # (Auto) Cancelled Baso # (Auto) Cancelled Absolute Gran (aut o) Cancelled Nucleated RBC % (a uto) Cancelled Nucleated RBCs # Cancelled Sodium (136-145) mmol/L Potassium (3.5-5.1) mmol/L Chloride (98-107) mmol/L Carbon Dioxide (22-29) mmol/L Anion Gap (5-19) BUN (6-20) mg/dL Creatinine (0.5-0.9) mg/dL GFR Calculation (90-130) mL/min Glucose (65-115) mg/dL Calculated Osmolal ity (285-295) mOsm/k g Calcium (8.5-10.5) mg/dL Total Bilirubin (0.15-1.2) mg/dL AST (0-32) U/L ALT (0-33) U/L Alkaline Phosphata se (35-105) IU/L Total Protein (6.6-8.7) g/dL Albumin (3.5-5.2) g/dL Globulin (1.3-4.6) g/dL HCG, Qual Negative (Negative) Salicylates (3-10) mg/dL Urine Opiates Scre en Positive H (Negative) ng/mL Acetaminophen (10-30) ug/mL Ur Barbiturates Sc reen Negative (Negative) ng/mL Ur Phencyclidine S crn Negative (Negative) ng/mL Ur Amphetamines Sc reen Negative (Negative) ng/mL U Benzodiazepines Scrn Positive H (Negative) ng/mL Urine Cocaine Scre en Negative (Negative) ng/mL U Marijuana (THC) Screen Negative (Negative) ng/mL Ethyl Alcohol (0-10) mg/dL 10/25/20 10/25/20 Range/Units 17:38 18:39 WBC 9.4 Corrected WBC RBC 5.68 H Hgb 16.1 H Hct 49.9 H MCV 87.9 MCH 28.3 MCHC 32.3 RDW 13.3 Plt Count 316 MPV 10.5 H Gran % Neut % (Auto) 58.3 Lymph % (Auto) 29.9 Hardeman % (Auto) 8.8 Eos % (Auto) 1.6 Baso % (Auto) 0.9 Neut # (Auto) 5.48 Lymph # (Auto) 2.8 [place] # (Auto) 0.8 Eos # (Auto) 0.2 Baso # (Auto) 0.1 Absolute Gran (aut o) Nucleated RBC % (a uto) 0 Nucleated RBCs # 0.0 Sodium 140 (136-145) mmol/L Potassium 4.2 (3.5-5.1) mmol/L Chloride 103 (98-107) mmol/L Carbon Dioxide 27 (22-29) mmol/L Anion Gap 14.2 (5-19) BUN 10 (6-20) mg/dL Creatinine 0.6 (0.5-0.9) mg/dL GFR Calculation 115.1 (90-130) mL/min Glucose 110 (65-115) mg/dL Calculated Osmolal ity 290 (285-295) mOsm/k g Calcium 9.5 (8.5-10.5) mg/dL Total Bilirubin 0.3 (0.15-1.2) mg/dL AST 23 (0-32) U/L ALT 24 (0-33) U/L Alkaline Phosphata se 78 (35-105) IU/L Total Protein 6.9 (6.6-8.7) g/dL Albumin 4.1 (3.5-5.2) g/dL Globulin 2.8 (1.3-4.6) g/dL HCG, Qual (Negative) Salicylates 0.9 L (3-10) mg/dL Urine Opiates Scre en (Negative) ng/mL Acetaminophen < 5.0 L (10-30) ug/mL Ur Barbiturates Sc reen (Negative) ng/mL Ur Phencyclidine S crn (Negative) ng/mL Ur Amphetamines Sc reen (Negative) ng/mL U Benzodiazepines Scrn (Negative) ng/mL Urine Cocaine Scre en (Negative) ng/mL U Marijuana (THC) Screen (Negative) ng/mL Ethyl Alcohol < 10 (0-10) mg/dL Discharge Plan Discharge Patient Disposition: Admitted As Inpatient Admit Provider: Azul Iqbal Clinical Impression: Overdose Qualifiers: Encounter type: initial encounter Injury intent: intentional self-harm Qualified Code(s): T50.902A - Poisoning by unspecified drugs, medicaments and biological substances, intentional self-harm, initial encounter Condition: Stable Referrals: Selma Robles MD [Primary Care Provider] - Coding Level of Care Code ED Pharmacist [facility] Exam Comprehensive
[2020-03-26] MEDS: charcoal (sorbitol) 25 gm/120 mL UDC 50 GM PO (17:14)
[2020-03-26 18:09] LABS: HCG Qualitative Urine. Negative (Negative)
[2020-03-26 18:15] LABS: Amphetamines Screen Urine Negative (Negative); Barbiturates Screen Urine Negative (Negative); Benzodiazepines Screen Urine Positive (Negative); Cocaine Screen Urine Negative (Negative); Opiate Screen Urine Positive (Negative); PCP Screen Urine Negative (Negative); THC Screen Urine Negative (Negative)
[2020-03-26 18:23] LABS: Alanine Aminotransferase 24 U/L (0-33); Albumin Level 4.1 g/dL (3.5-5.2); Alkaline Phosphatase 78 IU/L (35-105); Blood Urea Nitrogen 10 mg/dL (6-20); Calcium 9.5 mg/dL (8.5-10.5); Carbon Dioxide 27 mmol/L (22-29); Chloride 103 mmol/L (98-107); Globulin 2.8 g/dL (1.3-4.6); Glomerular Filtration Rate 115.1 mL/min (90-130); Glucose 110 mg/dL (65-115); Osmolality Calculated 290 mOsm/kg (285-295); Salicylate 0.9 mg/dL (3-10); Sodium 140 mmol/L (136-145); Total Bilirubin 0.3 mg/dL (0.15-1.2); Total Protein 6.9 g/dL (6.6-8.7)
[2020-03-26 18:25] LABS: Acetaminophen < 5.0 ug/mL (10-30); Alcohol Level < 10 mg/dL (0-10); Anion Gap 14.2 (5-19); Aspartate Amino Transferase 23 U/L (0-32); Potassium 4.2 mmol/L (3.5-5.1)
[2020-03-26 18:42] LABS: Basophils # 0.1 10^3/uL (0.0-0.1); Basophils % 0.9 %; Eosinophils # 0.2 10^3/uL (0.0-0.8); Eosinophils % 1.6 %; Hematocrit 49.9 % (37.0-47.0); Hemoglobin 16.1 g/dL (11.5-15.3); Lymphocytes # 2.8 10^3/uL (0.8-4.8); Lymphocytes % 29.9 %; Mean Corpuscular HGB Conc 32.3 g/dL (30.0-36.0); Mean Corpuscular Hemoglobin 28.3 pg (28.0-34.0); Mean Corpuscular Volume 87.9 fL (81-99); Mean Platelet Volume 10.5 fL (7.4-10.4); Monocytes # 0.8 10^3/uL (0.2-0.9); Monocytes % 8.8 %; Neutrophils # 5.48 10^3/uL (1.8-7.7); Neutrophils % 58.3 %; Nucleated Red Blood Cells % 0 %; Platelet Count 316 10^3/cmm (130-400); Red Blood Count 5.68 10^6/uL (4.1-5.3); Red Cell Distribution Width 13.3 % (12.1-15.1); White Blood Count 9.4 10^3/uL (4.0-10.0)
--- NOTE | 2020-03-26 19:21 | PC.NURSE ---
EKG done given sips of H2o per pt request
--- NOTE | 2020-03-26 20:02 | PM.HP ---
Providers/Chief Complaint Primary Care Provider: Selma Robles MD Chief Complaint: OD History of Present Illness Charity Blake is a 34 year old female who has history of recurrent admissions to the hospital secondary to psychiatric behaviors, is currently under guardianship to her and secondary to borderline healthy, she has been struggling with depressive disorder, came in today after taking 22 tablets of 1 mg of Ativan. Patient is stating that she was upset, has been going to some emotional turmoil, she is not suicidal, she just wanted to take these many tablets to calm her down. She is denying any plans or feelings to hurt herself. She called her cousin when she took 22 tablets, her cousin called EMS to bring her to the hospital. She received charcoal treatment because her intake was about 1 hour before her arrival to the ER. Patient wanted to go to bathroom to have a bowel movement, she was complaining of abdominal cramps and pain. She endorses history of umbilical hernia. She is denying fever, nausea, vomiting, constipation, dysuria. Diagnostics in the ER revealed sinus tachycardia, hypertensive, drug screen reviewed, polycythemia, no remarkable chemistry findings other than mentioned above Review of Systems Const: Denies: fever(s), chills or body aches Eyes: Denies: change in vision ENMT: Denies: throat pain Card: Denies: chest pain Resp: Denies: dyspnea GI: Reports: abdominal pain; Denies: nausea, vomiting or diarrhea : Denies: flank pain Musc: Reports: extremity swelling Skin/Breast: Reports: lesions; Denies: rash Neuro: Denies: headache(s) Psych: Reports: depression, panic attacks, hopelessness and irritability Endo: Denies: polyuria Liang/Lymph: Denies: easy bruising All/Imm: Denies: urticaria Medications/Allergies Home Medications Medication Instructions Recorded Confirmed Last Taken Type albuterol sulfate 90 mcg/actuation 2 puff INHALATION Q4H PRN gm 08/11/19 03/13/20 Unknown History aerosol inhaler fesoterodine 4 mg tablet,extended 4 mg PO .QHS tab 08/11/19 03/13/20 02/08/20 History release 24 hr fluticasone propionate 50 2 spray INTRANASAL DAILY 08/11/19 03/13/20 02/08/20 History mcg/actuation nasal spray,suspension furosemide 20 mg tablet 20 mg PO QAM 08/11/19 03/13/20 Unknown History levothyroxine 75 mcg/mL oral 75 mcg PO DAILY 08/11/19 03/13/20 02/08/20 History solution lisinopril 20 mg tablet 20 mg PO DAILY 08/11/19 03/13/20 02/08/20 History loratadine 10 mg tablet 10 mg PO DAILY 08/11/19 03/13/20 02/08/20 History metformin 500 mg tablet 500 mg PO BID 08/11/19 03/13/20 02/08/20 History metoprolol succinate 100 mg 100 mg PO DAILY 08/11/19 03/13/20 02/08/20 History capsule sprinkle, ext. release 24 hr multivitamin 1 tab PO DAILY 08/11/19 03/13/20 02/08/20 History omeprazole 40 mg capsule,delayed 40 mg PO DAILY 08/11/19 03/13/20 02/08/20 History release potassium chloride 10 mEq 10 meq PO DAILY 08/11/19 03/13/20 Unknown History capsule,extended release tiagabine 4 mg tablet 4 mg PO BID 08/11/19 03/13/20 02/08/20 History tranexamic acid 650 mg tablet 650 mg PO DAILY PRN tab 08/11/19 03/13/20 Unknown History naproxen 500 mg tablet 500 mg PO DAILY PRN tab 09/24/19 03/13/20 Unknown History ondansetron HCl [Zofran] 4 mg PO Q6H PRN #10 tab 12/12/19 03/13/20 Unknown Rx citalopram 10 mg tablet 5 mg PO DAILY #15 tab 01/11/20 03/13/20 02/08/20 Rx citalopram 20 mg tablet 20 mg PO DAILY #30 tab 01/11/20 03/13/20 02/08/20 Rx trazodone 100 mg tablet 100 mg PO .QHS #30 tab 01/11/20 03/13/20 02/08/20 Rx fluconazole 150 mg PO DAILY 02/09/20 03/13/20 Unknown History hydrocodone-acetaminophen [[place]] 1 tab PO Q6H PRN #14 tab 02/09/20 03/13/20 Unknown Rx ibuprofen 600 mg PO Q6H PRN 02/09/20 03/13/20 02/08/20 History nystatin [Nystop] See Rx Instructions .ROUTE .COMPLEX 02/09/20 03/13/20 Unknown History ondansetron 4 mg PO Q6H PRN #14 tab 02/09/20 03/13/20 Unknown Rx buspirone 15 mg tablet 15 mg PO TID #90 tab 03/08/20 03/13/20 Unknown Rx lorazepam 1 mg tablet See Rx Instructions PO .COMPLEX 03/08/20 03/13/20 Unknown Rx #75 tab nitrofurantoin 100 mg PO BID #60 cap 03/23/20 Unknown Rx monohydrate/macrocrystals 100 mg capsule Allergies Allergy/AdvReac Type Severity Reaction Status Date / Time trimethoprim Allergy Severe Unknown Verified 11/26/19 13:09 adhesive Allergy Unknown Unknown Verified 11/26/19 13:09 latex Allergy Unknown Unknown Verified 11/26/19 13:09 Sulfa (Sulfonamide Allergy Unknown Unknown Verified 11/26/19 13:09 Antibiotics) tramadol Allergy Unknown Unknown Verified 11/26/19 13:09 PFSH Acute PFSH: Medical History Breakthrough seizure Cigarette smoker Flank pain with history of urolithiasis Gastritis History of kidney stones Major depression, recurrent, full remission Migraine Mild intellectual disability Morbid obesity Recurrent UTI Sleep apnea Surgical History History of carpal tunnel surgery Hx of tympanostomy Family History Other Unknown family medical history Social History Smoking and tobacco status: current every day smoker Alcohol intake: current Alcohol intake frequency: holidays/special occasions only Lives independently: No Household members: family Marital status: Single Current occupational status: disabled Current gender identity: Female Female Reproductive History: Date of last menstrual period: 10/14/19 Vitals/I&O/Wt Last Vital Signs Temp 97.2 F L 03/26/20 16:47 Pulse 100 03/26/20 18:50 Resp 28 H 03/26/20 18:50 BP 134/89 03/26/20 18:50 Pulse Ox 93 03/26/20 18:50 Weight last 48 hrs Weight 190.962 kg Physical Exam Narrative: EXAM NARRATIVE: Morbidly obese female Currently awake alert Appears more than stated age Saturating well on 2 L nasal cannula Hypertensive, tachycardic S1, S2 tachycardia without any murmur Nonpitting edema of lower extremities No acute respiratory distress Abdomen soft, distended, distal obesity, umbilical hernia, tenderness to palpation around umbilical area EOMI, PERRLA Awake alert oriented x3 GCS 15 Able to protect airways She is slightly drowsy, she mentioned above HPI, able to follow my commands, he sat up in her bed Data : 03/26/20 18:39 03/26/20 17:38 A&P Assessment and plan (1) Overdose: Status: Acute Qualifiers: Encounter type: initial encounter Injury intent: intentional self-harm Qualified Code(s): T50.902A - Poisoning by unspecified drugs, medicaments and biological substances, intentional self-harm, initial encounter (2) Morbid obesity: Status: Acute (3) Mild intellectual disability: Status: Acute Additional A&P Information Intentional drug overdose Able to protect airways, GCS 15, slightly drowsy I will obtain blood gas currently she saturating well on 2 L nasal cannula, no acute respiratory distress Drug screen reviewed, CBC BMP reviewed Neurochecks every 4 hours We will monitor her on medical floor before sending her to neuropsychiatric unit, denying suicidal ideation, currently not on 96-hour hold, obtain EKG to monitor QT interval Polycythemia most likely secondary to her sleep apnea and current dehydration Monitor for now DVT prophylaxis Lovenox 30 mg twice daily secondary to her BMI Regular diet ruled out Full code Attestations Medical Necessity Statement*: Anticipating less than 2 nights in the hospital continued overnight monitoring because of intentional drug overdose, Time Spent in Patient Care: (>than 50% of time spent in counselling and/or direct pt care on unit). 30mins Coding Level of Care Code Acute Student Support Services Director for [facility] Ramos Diagnoses Overdose T50.902A Encounter type: initial encounter Injury intent: intentional self-harm Morbid obesity E66.01 Mild intellectual disability F70
[2020-03-26 22:50] LABS: Glucose Point of Care 137 mg/dL (70-110)
[2020-03-26] MEDS: enoxaparin 30 mg/0.3 mL Syringe SUBCUT (23:25)
[2020-03-27] VITALS (8 sets, daily range): BP systolic 114–158; BP diastolic 59–112; PULSE 74–114; RESP 16–20; TEMP 36.3–37; O2SAT 92–98
[2020-03-27 05:50] LABS: Basophils # 0.1 10^3/uL (0.0-0.1); Basophils % 0.7 %; Eosinophils # 0.1 10^3/uL (0.0-0.8); Eosinophils % 1.2 %; Hematocrit 45.2 % (37.0-47.0); Hemoglobin 14.4 g/dL (11.5-15.3); Lymphocytes # 3.1 10^3/uL (0.8-4.8); Mean Corpuscular HGB Conc 31.9 g/dL (30.0-36.0); Mean Corpuscular Hemoglobin 28.2 pg (28.0-34.0); Mean Corpuscular Volume 88.6 fL (81-99); Mean Platelet Volume 10.5 fL (7.4-10.4); Monocytes # 1.1 10^3/uL (0.2-0.9); Neutrophils # 5.19 10^3/uL (1.8-7.7); Neutrophils % 54.5 %; Nucleated Red Blood Cells % 0 %; Platelet Count 267 10^3/cmm (130-400); Red Cell Distribution Width 13.5 % (12.1-15.1); White Blood Count 9.5 10^3/uL (4.0-10.0)
[2020-03-27 06:26] LABS: Alanine Aminotransferase 23 U/L (0-33); Albumin Level 3.8 g/dL (3.5-5.2); Alkaline Phosphatase 72 IU/L (35-105); Anion Gap 12.9 (5-19); Aspartate Amino Transferase 16 U/L (0-32); Blood Urea Nitrogen 12 mg/dL (6-20); Calcium 9.4 mg/dL (8.5-10.5); Carbon Dioxide 26 mmol/L (22-29); Chloride 102 mmol/L (98-107); Globulin 2.3 g/dL (1.3-4.6); Glomerular Filtration Rate 115.1 mL/min (90-130); Glucose 107 mg/dL (65-115); Osmolality Calculated 284 mOsm/kg (285-295); Potassium 3.9 mmol/L (3.5-5.1); Sodium 137 mmol/L (136-145); Thyroid Stimulating Hormone 2.74 uIU/mL (0.27-4.20); Total Bilirubin 0.3 mg/dL (0.15-1.2); Total Protein 6.1 g/dL (6.6-8.7)
[2020-03-27 06:53] LABS: Glucose Point of Care 111 mg/dL (70-110)
[2020-03-27] MEDS: enoxaparin 30 mg/0.3 mL Syringe SUBCUT (08:48)
[2020-03-27] MEDS: lisinopril 20 mg Tablet PO (08:48)
[2020-03-27] MEDS: pantoprazole DR 40 mg Tablet PO (08:48)
[2020-03-27] MEDS: metoprolol succinate ER (24 HR) 100 mg Tablet PO (08:49)
[2020-03-27] MEDS: levothyroxine 150 mcg Tablet 75 MCG PO (08:49)
--- NOTE | 2020-03-27 09:51 | PC.CHAP ---
Pastoral Care Encounter/Spiritual Assessment Type of Contact [] Declined publication designer visit [] Patient/Family/Request visit [] Outpatient visit [] Follow-up visit [] Physician referral [] Code/Alert [x] Routine visit [] Staff referral [] Actively dying [] Patient sleeping [] Family support [] [] Out of room [] Palliative care [] [] Receiving care in room [] Pre-surgical visit [] Trauma [] Long length of stay [] ICU visit [] Other: Relational/Emotional Strength [] Patient feels connected with others/family/visitors/staff [] Distress [] Loneliness/isolation [] Abandonment Spirituality of Patient [] Person of Kay [] Attends Scientology of their Kay [] Believes in Prayer [] Reads Bible or Faith materials [] There are Spiritual issues to be addressed Warp Knit Operator Interventions [x] Prayer [x] Active listening [x] Non-anxious presence [x] Spiritual/emotional support [] Crisis/trauma care [x] Spiritual counseling [] Bereavement support [] Provided bereavement packet [] Provided Bible/devotional materials [x] Provided toy/stuffed animal, coloring book to patient or family member [] Provided Communion [] Anointing/[place] [] Salvation [x] Completed spiritual assessment [] Other: Impact on Illness or Injury [] Angry [] Fearful [] Anxious [] Often cries [] Exhaustion [] Unable to work [] Unable to attend confucianist [] Unable to walk/stand [] Unable to read [] Unable to drive [] Unable to eat/drink [] Unable to sleep [] Unable to be with family [] Patient intubated [] Other: Summary patient being transferred to RAILWAYS ASSISTANT ... Time spent with patient 20 min
--- NOTE | 2020-03-27 10:32 | PC.RESP ---
SMOKING CESSATION INFORMATION SENT TO PATIENT.
[2020-03-27 11:27] LABS: Glucose Point of Care 103 mg/dL (70-110)
--- NOTE | 2020-03-27 13:08 | CT_ITS ---
WS: [id number] CT ABDOMEN AND PELVIS WITH AND WITHOUT CONTRAST HISTORY: painful periumbilical hernia TECHNIQUE: Unenhanced 5 mm axial imaging first performed through the abdomen. Post contrast imaging t hrough the abdomen and pelvis. Oral contrast has been provided. Sagittal and coronal reformats are s ubmitted. All CT scans at use at least one of these dose optimization techniqu es: automated exposure control; mA and/or kV adjustment per patient size (includes targeted exams whe re dose is matched to clinical indication); or iterative reconstruction. CONTRAST: Omnipaque 300; 95 mL IV. DLP: 5177.08 mGy.cm COMPARISON: 12/18/2016 Benign calcified granuloma at the LEFT lung base. Heart size is normal. Liver, spleen, gallbladder and pancreas and adrenal glands are negative. There is mild hepatic steato sis. Kidneys are normal size. Nonobstructing 6 mm calcification lower pole LEFT kidney. No adenopathy or ascites. Normal aorta. No GI tract obstruction. Normal appendix. Ventral abdominal wall hernia measures 4.2 cm. Herniation of omental fat through the hernia. IUD present in the central endometrial canal. Moderate-sized cyst associated with the RIGHT ovary otilia sures 3.5 x 3.6 cm. No osteoblastic or osteolytic bone disease. CT/CT abdomen pelvis wo/w [id number] IMPRESSION: 1. Midline ventral abdominal wall hernia contains omentum only. Orifice of the hernia is 4.2 cm. Hernia has slightly increased in size since 12/18/2016. 2. Nonobstructing 6 mm calcification lower pole LEFT kidney. 3. Normal appendix.
--- NOTE | 2020-03-27 13:12 | PM.PN ---
Subjective Subjective: Interval history: She is awake, alert, oriented x3. She says is having abdominal pain, periumbilical, over the last 3 days. She reports a history of umbilical hernia. Vitals/I&O/Wt Last Vital Signs Temp 97.9 F 03/27/20 11:45 Pulse 76 03/27/20 11:45 Resp 18 03/27/20 11:45 BP 127/59 03/27/20 11:45 Pulse Ox 95 03/27/20 11:45 03/26/20 03/27/20 03/27/20 22:59 06:59 14:59 Intake Total 350 / 350 1320 / 1320 Output Total 500 / 500 Balance 350 / 350 820 / 820 Weight last 48 hrs Weight 190.962 kg Physical Exam Const: COMMON NORMALS: no acute distress, patient oriented x3 and alert GENERAL APPEARANCE: anxious NUTRITIONAL APPEARANCE: obese morbidly obese ORIENTATION/CONSCIOUSNESS: Yes awake HENMT: COMMON NORMALS: oropharynx normal Neck/C-Spine: COMMON NORMALS: no JVD Resp: COMMON NORMALS: normal respiratory effort and clear to auscultation bilaterally AUSCULTATION: clear to auscultation bilaterally Cardio: COMMON NORMALS: no JVD, regular rhythm, S1 normal heart sound present, S2 normal heart sound present and No murmurs present (Cardio) RHYTHM: regular rhythm HEART SOUNDS: S1 normal heart sound present and S2 normal heart sound present GI: COMMON NORMALS: Normal to inspection, nondistended, normoactive bowel sounds present, Soft to palpation and non-tender PALPATION: Yes Soft to palpation Extremity: COMMON NORMALS: no joint enlargement and no pedal edema Neuro: COMMON NORMALS: patient oriented x3 and moves all extremities SENSORIUM/ORIENTATION: Yes alert Skin: COMMON NORMALS: no rashes or lesions noted GENERAL SKIN EXAM: no rashes or lesions noted Data : 03/27/20 05:17 03/27/20 05:17 A&P Assessment and plan (1) Umbilical hernia: She reports for the past 3 days she has been having pain at the mid abdomen, at the site of the small umbilical hernia. Pushing around the area triggers pain. Abdomen otherwise is soft. She is difficult to examine due to morbid obesity. She reports she has been having bowel movements with charcoal which she received yesterday. Denies is not passing very much gas. Denies significant eructation. No signs of sepsis. Discussed with surgery for additional evaluation. Requesting CT abdomen and pelvis. Will check lipase. Bowel rest. Status: Acute (2) Overdose: Did well overnight, is awake, alert, pending additional psychiatric evaluation. Status: Acute Qualifiers: Encounter type: initial encounter Injury intent: intentional self-harm Qualified Code(s): T50.902A - Poisoning by unspecified drugs, medicaments and biological substances, intentional self-harm, initial encounter (3) Morbid obesity: BMI 65.9 Status: Acute (4) Mild intellectual disability: Status: Acute Additional A&P Information Polycythemia most likely secondary to her sleep apnea and current dehydration. Monitor. DVT prophylaxis Lovenox 30 mg twice daily secondary to her BMI ruled out Full code Attestations Medical Necessity Statement*: Continue admission for assessment management of abdominal pain around umbilical hernia in the setting of morbid obesity, requiring additional psychiatric evaluation after medication overdose. Coding Level of Care Code Acute Director Of Public Health for [facility] Diagnoses Umbilical hernia K42.9 Overdose T50.902A Encounter type: initial encounter Injury intent: intentional self-harm Morbid obesity E66.01 Mild intellectual disability F70
[2020-03-27 13:53] LABS: Lipase 25 U/L (13-60)
--- NOTE | 2020-03-27 15:18 | PM.PSYCN ---
Providers/Reason for Consult Consulting Physican/Specialty*: Psychiatry - Zeferino Yin MD Reason for Consult*: Assessment for the presence of imminent risk to self or others. Attending Physician: Jesse Burk Primary Care Provider: Selma Robles MD Psych Consult HPI History of Present Illness Charity Blake is a 34 year old female known to this physician from previous inpatient contact. There is a history of stress within her psychosocial sphere and poor coping skills. Judging from the mental health note from last week, her difficulties at home between she and her mother were increasing. She had a plan to put distance between she and her mother between whom the relationship has been hina for some time. Apparently, that plan failed. In response, she impulsively ingested 20 to lorazepam. She specifically states that this was not a suicide attempt. She occasionally thinks about suicide and if she ever gets to that point, she knows that there is a more lethal way of completing the task. She was simply frustrated with a combination of stress between she and her mother and her difficulty with pain from her abdominal hernia. The patient is in significant emotional distress. She details of the psychosocial situation in which she finds herself. She does not feel that it is healthy that she lives with her mother. She claimed that her mother blames the patient for the patient's father's . There is a history of discord between the 2. She is under legal guardianship to her aunt. While the patient admits that living with her mother is not a emotionally healthy position, she also admits that she has sabotaged many prior placements. She feels that her aunt and the state are trying to figure out where she needs to go next. Her degree of distress was noted. However, when the patient was offered to come to the psychiatric unit on a crisis intervention admission, she absolutely refused. We discussed potential benefits in the form of being able to have a safe place while she and her aunt figured out a better place for her to live than her mother. However the patient again refused stating that she would rather go home and live back with her mother than a come to the psychiatric unit. She continued to deny any suicidal or homicidal ideation. She continued to insist that the events leading to this hospitalization were not intended to cause a suicide and believes that we are cognitively disabled if we think that that was her intent. Admission history and physical note: Charity Blake is a 34 year old female who has history of recurrent admissions to the hospital secondary to psychiatric behaviors, is currently under guardianship to her and secondary to borderline healthy, she has been struggling with depressive disorder, came in today after taking 22 tablets of 1 mg of Ativan. Patient is stating that she was upset, has been going to some emotional turmoil, she is not suicidal, she just wanted to take these many tablets to calm her down. She is denying any plans or feelings to hurt herself. She called her cousin when she took 22 tablets, her cousin called EMS to bring her to the hospital. She received charcoal treatment because her intake was about 1 hour before her arrival to the ER. Patient wanted to go to bathroom to have a bowel movement, she was complaining of abdominal cramps and pain. She endorses history of umbilical hernia. She is denying fever, nausea, vomiting, constipation, dysuria. Diagnostics in the ER revealed sinus tachycardia, hypertensive, drug screen reviewed, polycythemia, no remarkable chemistry findings other than mentioned above Laboratory Tests 03/26/20 03/26/20 17:07 17:38 Urine Opiates Screen Positive H Ur Barbiturates Screen Negative Ur Phencyclidine Scrn Negative Ur Amphetamines Screen Negative U Benzodiazepines Scrn Positive H Urine Cocaine Screen Negative U Marijuana (THC) Screen Negative Ethyl Alcohol < 10 Past psychiatric history: Admission note form last NPU visit with this physician: September 19, 2018 I don't know why they put in here. I got angry because of all the stuff that was going on in my life and people that were trying to tell me what to do. HPI: Charity Blake is a 33-year-old woman who was admitted to the psychiatric unit on the force of affidavits sworn out by Nicole Calero, her case management specialist and June Del Rio, her aunt. Describe her as complaining of worsening nightmares and exercising poor judgment especially regarding family matters. She was screaming and threatening family members. She has been crying excessively and claiming that people are stealing from her. They specifically state that she denied feeling suicidal or homicidal. Her aunt feels that the medications may look into because her behavior has changed. Carrie acknowledges all of the above as being accurate. She recently has been evicted from her apartment and she and her boyfriend need to find a new place to live. They were evicted because family members came to live with them even when the family members were asked not to. Recently angry at her family members. There are financial issues which are also causing her distress. Her psychiatric history is very confusing. She claims that she has been hospitalized nearly 20 times with multiple hospitalizations at this unit itself. However going back 2 years, there are no records of her being in this hospital. Staff reports that they have seen her here before. I'm unable to find records that would corroborate her story. She says that she does have a psychiatrist that treats her on outpatient basis but has not seen a psychiatrist in over a year. There is an access problem as the patient weighs over 400 pounds and transportation to appointments is problematic so she may not be seeing either her primary care doctor or psychiatrist as often as she would like. However she denies feeling suicidal or homicidal. She denies feeling depressed. She does feel that she is having more seizures than she has had in the past. She feels overwhelmed at times but generally has been hedonic capacity and feels as though she is thinking clearly. She specifically denies needing to be in the hospital and would like to go home. Her medications at this time include buspirone 15 mg 3 times a day, Celexa 25 mg daily and when necessary trazodone and lorazepam. Social history: Patient is currently under guardianship to her aunt. She has a case management specialist. However her case management specialist, the one that filed the affidavit, is relatively new to her case and is unfamiliar with her pattern of interpersonal interactions. Mental Status Exam: Patient is a morbidly obese woman who is wheeled to meetings and interviews in a wheelchair. She is nonambulatory. Eye contact is good. Speech is of normal rate and rhythm and easily understood. Information provided is internally consistent and consistent with that in the chart. She is believed to be a reliable informant to the best of her ability. Appearance: hygiene is fair; no gross neurological deficits., AIMS=0 Speech: Speech is of normal rate and rhythm and easily understood. Thought processes: Thought processes are abstract. Judgment is adequate for safety. Associations: intact Psychotic processes: There is no indication of guarding or paranoia. There is no attention to the internal stimuli. Auditory and visual hallucinations are denied. Judgment: Insight is fair. Problem solving skills are adequate for safety. Orientation: The patient is oriented to person, place time and situation. Memory: no deficits noted in immediate, intermediate, or remote spheres. Attention: The patient is alert and interpersonally engaged. Language: Verbalizations are coherent. Fund of knowledge: Fund of knowledge is adequate. Affect/Mood: Affect is consistent with a euthymic mood. Denied suicidal ideation Affective range is appropriate. Psychosis: perception unimpaired except through cognitive distortion; reality testing intact. The patient is requesting to be discharged to go home. Review of her chart, there is no indication that she is at imminent risk to self or others. She would likely benefit from having a medication review but the need is not urgent. She was offered to remain in the hospital and have her medications adjusted while she was here. However she refused and insisted that she be able to go home and take care of her dog and take care of the acute stressor that is causing her difficulty in the form of finding a new residence. Patient will be discharged in regular status if she is able to find transportation to her home. Outpatient psychiatry note of 03/08/2020 Assesment & Plan Assessment: Samantha is at her psychiatric baseline. Plan: -Continue citalopram 25 mg daily. -Continue BuSpar 15 mg 3 times daily. -Continue trazodone 100 mg at night. -Continue Lorazepam 1 mg twice daily and 0.5 mg daily as needed for anxiety. -I spent 4 minutes providing smoking cessation counseling. I gauged her desire to quit and she is not ready to quit. I spoke with her about the health risks of smoking along with her history of smoking. -Continue community support services. -Continue psychotherapy. -She will follow-up with me in 2 months. Outpatient mental health note of 03/23/2020 Charity reported, I'm getting dressed so I can go with my friend to [place]. She is coming to pick me up. I thought I could get dressed while we talk. I've been really emotional lately. I think it will be good to get away from my mom for a bit. We are together all of the time . Meds Current Medications: Current Medications Generic Name Dose Route Start Last Admin Trade Name Freq PRN Reason Stop Dose Admin Enoxaparin Sodium 30 mg 03/26/20 22:30 03/27/20 08:48 Lovenox SUBCUT 30 mg Q12H NAY Administration Insulin Aspart 0 unit 03/26/20 22:21 03/27/20 11:39 Novolog SUBCUT Not Given WM&BEDTIME NAY Protocol Levothyroxine Sodi um 75 mcg 03/27/20 09:00 03/27/20 08:49 Synthroid PO 75 mcg DAILY NAY Administration Lisinopril 20 mg 03/27/20 09:00 03/27/20 08:48 Prinivil PO 20 mg DAILY NAY Administration Metoprolol Succina te 100 mg 03/27/20 09:00 03/27/20 08:49 Toprol Xl PO 100 mg DAILY NAY Administration Pantoprazole Sodiu m 40 mg 03/27/20 09:00 03/27/20 08:48 Protonix PO 40 mg DAILY NAY Administration PFSH NPU PFSH: Medical History Breakthrough seizure Cigarette smoker Flank pain with history of urolithiasis Gastritis History of kidney stones Major depression, recurrent, full remission Migraine Mild intellectual disability Morbid obesity Recurrent UTI Sleep apnea Surgical History History of carpal tunnel surgery Hx of tympanostomy Family History Other Unknown family medical history Social History Smoking and tobacco status: current every day smoker Alcohol intake: current Alcohol intake frequency: holidays/special occasions only Lives independently: No Household members: family Marital status: Single Current occupational status: disabled Current gender identity: Female Mental Status Exam MSE Comments: Mental Status Exam: This is an obese woman found sleeping soundly in the middle of the afternoon. She is aroused by verbal stimuli. She is immediately alert and awake and interpersonally engaged. Her eye contact is good. Appearance: hygiene is fair; no gross neurological deficits., gait is unremarkable; AIMS=0 Speech: Speech is of normal rate and rhythm and easily understood. Thought processes: Thought processes are concrete and often contradictory and illogical.. Judgment is not adequate for safety without supervision. Associations: intact Psychotic processes: There is no indication of guarding or paranoia. There is no attention to the internal stimuli. Auditory and visual hallucinations are denied. Judgment: Insight is fair. Problem solving skills are adequate for safety. Orientation: The patient is oriented to person, place time and situation. Memory: no deficits noted in immediate, intermediate, or remote spheres. Attention: The patient is alert and interpersonally engaged. Language: Verbalizations are coherent. Fund of knowledge: Fund of knowledge is poor Affect/Mood: Affect is tearful with a depressed mood. pt denies suicidal ideation Affective range is appropriate. Psychosis: Perception is impaired largely through her cognitive disability. There is no indication of jesenia psychosis. However her difficulty in decision making requires continued supervision by her guardian.. Vitals/I&O/Wt Last Vital Signs Temp 97.9 F 03/27/20 11:45 Pulse 76 03/27/20 11:45 Resp 18 03/27/20 11:45 BP 127/59 03/27/20 11:45 Pulse Ox 95 03/27/20 11:45 03/27/20 03/27/20 03/27/20 06:59 14:59 22:59 Intake Total 350 / 350 1320 / 1320 Output Total 500 / 500 Balance 350 / 350 820 / 820 Weight last 48 hrs Weight 190.962 kg A&P Assessment and plan (1) Umbilical hernia: Status: Acute (2) Morbid obesity: Status: Acute (3) Overdose: Status: Acute Qualifiers: Encounter type: initial encounter Injury intent: intentional self-harm Qualified Code(s): T50.902A - Poisoning by unspecified drugs, medicaments and biological substances, intentional self-harm, initial encounter (4) Mild intellectual disability: Status: Acute (5) Adjustment disorder with mixed disturbance of emotions and conduct: Status: Acute Additional A&P Information At this point, the patient does not appear to be an imminent risk to self or others. However, her long-term prognosis will be dependent upon establishing residence in a supportive and therapeutic environment. Admission to the neuropsychiatric unit is a reasonable response in the situation. Transfer to the unit however is at the patient's discretion. Attestations NPU Medical Necessity Statement*: Further hospitalization is at the discretion of the physician of record. 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
[2020-03-27] MEDS: iohexol 300 mg/mL 100 mL Btl IV (15:30)
--- NOTE | 2020-03-27 16:12 | PC.NURSE ---
1530PT TAKEN DOWN BY WHEELCHAIR TO CT. THEY ATTEMPTED TO USE THE IV THAT THE PATIENT ALREADY HAD AND IT WOULD NOT FLUSH. SO ONE OF THE GUYS STARTED ONE IN THE LEFT AC SPACE AND IT INFILTERED WITH THE CONSTRACE DYE AND I RESTARTED IV IN PATIENT RIGHT FOREARM WITH #[address] DONE THIS [employer] BROUGHT HER BACK UP TO THE FLOOR. PT TOLERATED PROCEDURE WELL.
[2020-03-27 17:32] LABS: Glucose Point of Care 108 mg/dL (70-110)
--- NOTE | 2020-03-27 18:23 | PC.NURSE ---
REPORT CALLED TO SANTOSH SENA IN NPU. PATIENT AND BELONGINGS TAKEN TO NPU WITH [facility] PROFESSOR OF THEOLOGY [employer] FOR TRANSPORT.
[2020-03-27 19:49] LABS: Glucose Point of Care 119 mg/dL (70-110)
[2020-03-27] MEDS: haloperidol 5 mg Tablet PO (20:44)
[2020-03-27] MEDS: trazodone 50 mg Tablet PO (20:44)
[2020-03-27] MEDS: hyDROXYzine 25 mg Capsule 50 MG PO (20:44)
[2020-03-28 06:00] VITALS: BP 136/102; PULSE 80; RESP 18; TEMP 36.2; O2SAT 96
[2020-03-28 07:00] LABS: Glucose Point of Care 102 mg/dL (70-110)
[2020-03-28 07:10] LABS: Basophils # 0.1 10^3/uL (0.0-0.1); Basophils % 0.7 %; Eosinophils # 0.1 10^3/uL (0.0-0.8); Eosinophils % 1.3 %; Hematocrit 45.2 % (37.0-47.0); Hemoglobin 14.7 g/dL (11.5-15.3); Lymphocytes # 2.5 10^3/uL (0.8-4.8); Lymphocytes % 30.1 %; Mean Corpuscular HGB Conc 32.5 g/dL (30.0-36.0); Mean Corpuscular Hemoglobin 28.3 pg (28.0-34.0); Mean Corpuscular Volume 86.9 fL (81-99); Mean Platelet Volume 10.3 fL (7.4-10.4); Monocytes # 0.8 10^3/uL (0.2-0.9); Monocytes % 9.4 %; Neutrophils # 4.87 10^3/uL (1.8-7.7); Neutrophils % 58.1 %; Nucleated Red Blood Cells % 0 %; Platelet Count 250 10^3/cmm (130-400); Red Cell Distribution Width 13.3 % (12.1-15.1); White Blood Count 8.4 10^3/uL (4.0-10.0)
[2020-03-28 07:32] LABS: Alanine Aminotransferase 20 U/L (0-33); Albumin Level 3.9 g/dL (3.5-5.2); Alkaline Phosphatase 70 IU/L (35-105); Anion Gap 10.8 (5-19); Aspartate Amino Transferase 13 U/L (0-32); Blood Urea Nitrogen 11 mg/dL (6-20); Calcium 9.3 mg/dL (8.5-10.5); Carbon Dioxide 28 mmol/L (22-29); Chloride 104 mmol/L (98-107); Globulin 2.3 g/dL (1.3-4.6); Glomerular Filtration Rate 142.1 mL/min (90-130); Glucose 111 mg/dL (65-115); Osmolality Calculated 288 mOsm/kg (285-295); Potassium 3.8 mmol/L (3.5-5.1); Sodium 139 mmol/L (136-145); Total Bilirubin 0.4 mg/dL (0.15-1.2); Total Protein 6.2 g/dL (6.6-8.7)
[2020-03-28] MEDS: levothyroxine 150 mcg Tablet 75 MCG PO (08:26)
[2020-03-28] MEDS: lisinopril 20 mg Tablet PO (08:26)
[2020-03-28] MEDS: pantoprazole DR 40 mg Tablet PO (08:27)
[2020-03-28] MEDS: metoprolol succinate ER (24 HR) 100 mg Tablet PO (08:32)
[2020-03-28 11:25] LABS: Glucose Point of Care 147 mg/dL (70-110)
[2020-03-28] MEDS: acetaminophen 325 mg Tablet PO ×2 (11:29→20:18)
[2020-03-28 14:00] VITALS: BP 137/86; PULSE 85; RESP 17; TEMP 36.8; O2SAT 94
--- NOTE | 2020-03-28 15:57 | P.CONIM_ITS ---
Providers/Reason For Consult Consulting Physican/Specialty*: General Surgery Jaxon Kendrick MD Reason for Consult*: Ventral hernia. Attending Physician: Zeferino Yin MD Primary Care Provider: Selma Robles MD History of Present Illness History of Present Illness Charity Blake is a 34 year old female who was recently in the hospital after taking 20+ tablets of Ativan. While she was in the hospital, someone became aware that she probably had a ventral hernia that was somewhat uncomfortable for her. A CAT scan was performed and showed a fat-containing containing hernia in the mid abdomen. I was asked to see her in consultation. It sounds like she was initially placed on a 96-hour hold but after psychiatry had seen her they discontinued the hold; this was apparently shortly after I was asked to see her in consultation. My understanding from the nursing staff was the patient was probably going to be discharged and would have outpatient follow-up for her hernia, but as it turned out, she ended up in the NPU. After I found this out I went to talk to her about her hernia. She says it has been there for several years. She said this only been uncomfortable for her over the last several months. She says she has been losing weight and it seems to be more noticeable. She has not had any obstructive symptoms. She has never had any surgery in the area. Review of Systems General: Reports: 10 or more systems reviewed and unremarkable except in HPI and below Const: Denies: fever(s) GI: Reports: abdominal pain and other ( Stomach problems ) Meds/Allergies Home Medications and Allergies Home Medications Medication Instructions Recorded Confirmed Last Taken Type albuterol sulfate 90 mcg/actuation 2 puff INHALATION Q4H PRN gm 08/11/19 03/27/20 Unknown History aerosol inhaler fesoterodine 4 mg tablet,extended 4 mg PO .QHS tab 08/11/19 03/27/20 02/08/20 History release 24 hr fluticasone propionate 50 2 spray INTRANASAL DAILY 08/11/19 03/27/20 02/08/20 History mcg/actuation nasal spray,suspension furosemide 20 mg tablet 20 mg PO QAM 08/11/19 03/27/20 Unknown History levothyroxine 75 mcg/mL oral 75 mcg PO DAILY 08/11/19 03/27/20 02/08/20 History solution lisinopril 20 mg tablet 20 mg PO DAILY 08/11/19 03/27/20 02/08/20 History loratadine 10 mg tablet 10 mg PO DAILY 08/11/19 03/27/20 02/08/20 History metformin 500 mg tablet 500 mg PO BID 08/11/19 03/27/20 02/08/20 History metoprolol succinate 100 mg 100 mg PO DAILY 08/11/19 03/27/20 02/08/20 History capsule sprinkle, ext. release 24 hr multivitamin 1 tab PO DAILY 08/11/19 03/27/20 02/08/20 History omeprazole 40 mg capsule,delayed 40 mg PO DAILY 08/11/19 03/27/20 02/08/20 History release potassium chloride 10 mEq 10 meq PO DAILY 08/11/19 03/27/20 Unknown History capsule,extended release tiagabine 4 mg tablet 4 mg PO BID 08/11/19 03/27/20 02/08/20 History tranexamic acid 650 mg tablet 650 mg PO DAILY PRN tab 08/11/19 03/27/20 Unknown History naproxen 500 mg tablet 500 mg PO DAILY PRN tab 09/24/19 03/27/20 Unknown History ondansetron HCl [Zofran] 4 mg PO Q6H PRN #10 tab 12/12/19 03/27/20 Unknown Rx citalopram 10 mg tablet 5 mg PO DAILY #15 tab 01/11/20 03/27/20 02/08/20 Rx citalopram 20 mg tablet 20 mg PO DAILY #30 tab 01/11/20 03/27/20 02/08/20 Rx trazodone 100 mg tablet 100 mg PO .QHS #30 tab 01/11/20 03/27/20 02/08/20 Rx fluconazole 150 mg PO DAILY 02/09/20 03/27/20 Unknown History hydrocodone-acetaminophen [[place]] 1 tab PO Q6H PRN #14 tab 02/09/20 03/27/20 Unknown Rx ibuprofen 600 mg PO Q6H PRN 02/09/20 03/27/20 02/08/20 History nystatin [Nystop] See Rx Instructions .ROUTE .COMPLEX 02/09/20 03/27/20 Unknown History ondansetron 4 mg PO Q6H PRN #14 tab 02/09/20 03/27/20 Unknown Rx buspirone 15 mg tablet 15 mg PO TID #90 tab 03/08/20 03/27/20 Unknown Rx lorazepam 1 mg tablet See Rx Instructions PO .COMPLEX 03/08/20 03/27/20 03/26/20 09:00 Rx #75 tab nitrofurantoin 100 mg PO BID #60 cap 03/23/20 03/27/20 Unknown Rx monohydrate/macrocrystals 100 mg capsule Allergies Allergy/AdvReac Type Severity Reaction Status Date / Time trimethoprim Allergy Severe Unknown Verified 11/26/19 13:09 adhesive Allergy Unknown Unknown Verified 11/26/19 13:09 latex Allergy Unknown Unknown Verified 11/26/19 13:09 Sulfa (Sulfonamide Allergy Unknown Unknown Verified 11/26/19 13:09 Antibiotics) tramadol Allergy Unknown Unknown Verified 11/26/19 13:09 Current Medications Current Medications Generic Name Dose Route Start Last Admin Trade Name Freq PRN Reason Stop Dose Admin Acetaminophen 325 mg 03/26/20 22:21 03/28/20 11:29 Tylenol PO 325 mg Q4H PRN Administration headache Haloperidol 5 mg 03/27/20 19:55 03/27/20 20:44 Haldol PO 5 mg Q4H PRN Administration AGITATION Hydroxyzine Pamoate 50 mg 03/27/20 19:55 03/27/20 20:44 Vistaril PO 50 mg Q6H PRN Administration ANXIETY Insulin Aspart 0 unit 03/26/20 22:21 03/28/20 11:30 Novolog SUBCUT 2 unit WM&BEDTIME NAY Administration Protocol Levothyroxine Sodium 75 mcg 03/27/20 09:00 03/28/20 08:26 Synthroid PO 75 mcg DAILY NAY Administration Lisinopril 20 mg 03/27/20 09:00 03/28/20 08:26 Prinivil PO 20 mg DAILY NAY Administration Metoprolol Succinate 100 mg 03/27/20 09:00 03/28/20 08:32 Toprol Xl PO 100 mg DAILY NAY Administration Pantoprazole Sodium 40 mg 03/27/20 09:00 03/28/20 08:27 Protonix PO 40 mg DAILY NAY Administration Trazodone HCl 50 mg 03/27/20 19:55 03/27/20 20:44 Desyrel PO 50 mg BEDTIME PRN Administration SLEEP PFSH Acute PFSH: Medical History (Updated 03/28/20 @ 16:00 by Jaxon Kendrick MD) Breakthrough seizure Cigarette smoker Flank pain with history of urolithiasis Gastritis History of kidney stones Major depression, recurrent, full remission Migraine Mild intellectual disability Morbid obesity Recurrent UTI Sleep apnea Surgical History (Updated 03/28/20 @ 16:06 by Jaxon Kendrick MD) Ganglion cyst of dorsum of left wrist History of carpal tunnel surgery Hx of tympanostomy bilateral Left elbow fracture Repair of left elbow fracture/olecranon process Family History Other Unknown family medical history Social History Smoking and tobacco status: current every day smoker Alcohol intake: current Alcohol intake frequency: holidays/special occasions only Lives independently: No Household members: family Marital status: Single Current occupational status: disabled Current gender identity: Female Female Reproductive History: Date of last menstrual period: 03/26/20 Vitals/I&O/Wt Last Vital Signs Temp 98.2 F 03/28/20 14:00 Pulse 85 03/28/20 14:00 Resp 17 03/28/20 14:00 BP 137/86 03/28/20 14:00 Pulse Ox 94 03/28/20 14:00 Weight last 48 hrs Weight 421 lb Physical Exam Narrative: EXAM NARRATIVE: The patient was seen in her room in the NPU. She was resting but was easily arousable. The pupils seem equal. No carotid bruits are heard. The lungs are clear anteriorly. The heart is regular. The abdomen is morbidly obese and there is an obvious umbilical hernia present. Upon palpation she has more of a fullness to the left side of her umbilicus. This ar ea is mildly to moderately tender and represents the area of her hernia seen on the CAT scan. The extremities reveal some mild edema. Neurologically the patient appears to be grossly intact. Data Imaging^: CT Abd/Pel: Radiologist's impression: CT abdomen/pelvis 03/27/2020 IMPRESSION: 1. Midline ventral abdominal wall hernia contains omentum only. Orifice of the hernia is 4.2 cm. Hernia has slightly increased in size since 12/18/2016. 2. Nonobstructing 6 mm calcification lower pole LEFT kidney. 3. Normal appendix. A&P Assessment and plan (1) History of ventral hernia repair: The patient had this hernia for several years on imaging. It may be slightly larger than what it was seen initially. It is uncomfortable for her. Since it only contains some fat, this is not an emergency for repair but I told the patient it certainly could be repaired if she desires to have this done as an outpatient at some point. It sounds like she may not be involved in all of her medical decisions and so she will have to discuss the issue with her aunt. Please call if I can be of further help. Status: Deleted (2) Ventral hernia: Status: Acute Consult Attestations Medical Necessity Statement: See admitting service's notation. 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
--- NOTE | 2020-03-28 16:22 | P.PN_ITS ---
Subjective NPU Subjective: Interval history: Patient clarifies that she was not refusing to come to this unit. She did not feel it was necessary to come to this unit. She delineated very clearly the administrative situation that she finds herself. Under guardianship and the decision tree that is required to find her place to go when she leaves the hospital. We are agreed that no medication changes are indicated while she is in the hospital. She disagrees that her choice of action that led to her hospitalization needs revision. However she is thinking very clearly and responding in the hospital in a reasonable manner. Mental Status Exam MSE Comments: Mental Status Exam: She is immediately alert and awake and interpersonally engaged. Her eye contact is good. Appearance: hygiene is fair; no gross neurological deficits., gait is unremarkable; AIMS=0 Speech: Speech is of normal rate and rhythm and easily understood. Thought processes: Thought processes are concrete and often contradictory and illogical.. Judgment is not adequate for safety without supervision. Associations: intact Psychotic processes: There is no indication of guarding or paranoia. There is no attention to the internal stimuli. Auditory and visual hallucinations are denied. Judgment: Insight is fair. Problem solving skills are adequate for safety. Orientation: The patient is oriented to person, place time and situation. Memory: no deficits noted in immediate, intermediate, or remote spheres. Attention: The patient is alert and interpersonally engaged. Language: Verbalizations are coherent. Fund of knowledge: Fund of knowledge is poor Affect/Mood: Affect is consistent with a euthymic mood. pt denies suicidal ideation Affective range is appropriate. Psychosis: Perception is impaired largely through her cognitive disability. There is no indication of jesenia psychosis. However her difficulty in decision making requires continued supervision by her guardian.. Cognition: Patient Appearance: Disheveled/Poor Hygiene Level of Consciousness: Awake, Alert, Appropriate and Follows Commands Patient Cognition Impaired: No Ability to Follow Directions: Good Patient Orientation (long list): Person, Place and Time Comprehension Ability: No Impairment Hallucination Type: None Delusion Description: Not Present Thought Process: Appropriate Affect: Affect Description: Calm Depressive Symptoms: Back Pain, Crying Spells, Difficulty Sleeping, Feelings of Worthlessness, Hopelessness, Insomnia, Increased Anxiety, Increased Fatigue, Increased Irritability, Isolating Oneself From Friends and Family, Loss of Energy, Loss of Interest in Activities, Low Self Esteem, Muscle Pain, Muscle Tension and Unexplained Stomach Pain Behavior: Patient Behavior: Cooperative Speech Pattern: Clear Vitals/I&O/Wt Last Vital Signs Temp 98.2 F 03/28/20 14:00 Pulse 85 03/28/20 14:00 Resp 17 03/28/20 14:00 BP 137/86 03/28/20 14:00 Pulse Ox 94 03/28/20 14:00 Weight last 48 hrs Weight 190.962 kg Data NPU : 03/28/20 06:53 03/28/20 06:53 A&P Assessment and plan (1) Umbilical hernia: Status: Acute (2) Morbid obesity: Status: Acute (3) Overdose: Status: Acute Qualifiers: Encounter type: initial encounter Injury intent: intentional self-harm Qualified Code(s): T50.902A - Poisoning by unspecified drugs, medicaments and b iological substances, intentional self-harm, initial encounter (4) Mild intellectual disability: Status: Acute (5) Adjustment disorder with mixed disturbance of emotions and conduct: Status: Acute Additional A&P Information The patient was admitted to the adult psychiatric unit and entered into the form of individual and group therapies as part of the unit protocol. They were provided 24-hour access to medication supervision and therapeutic activities by trained psychiatric nursing. She is stable on medication that is being monitored on a regular and consistent basis by the outpatient program. No medication changes are going to be entertained at this time. Hospital day #2:Patient clarifies that she was not refusing to come to this unit. She did not feel it was necessary to come to this unit. She delineated very clearly the administrative situation that she finds herself. Under guardianship and the decision tree that is required to find her place to go when she leaves the hospital. We are agreed that no medication changes are indicated while she is in the hospital. She disagrees that her choice of action that led to her hospitalization needs revision. However she is thinking very clearly and responding in the hospital in a reasonable manner. Involuntary Hold Information 96 Hour Hold: 96 Hour Involuntary Admission: No Attestations NPU Medical Necessity Statement*: Patient will remain in the hospital another 1-3 nights for determination of her placement issues and guardianship. Coding Level of Care Code Acute M[employer] Handle Assembl[employer] for [employer] Ramos Diagnoses Umbilical hernia K42.9 Morbid obesity E66.01 Overdose T50.902A Encounter type: initial encounter Injury intent: intentional self-harm Mild intellectual disability F70 Adjustment disorder with mixed disturbance of emotions and conduct F43.25
[2020-03-28] MEDS: citalopram 20 mg Tablet PO (16:45)
[2020-03-28 16:52] LABS: Glucose Point of Care 117 mg/dL (70-110)
[2020-03-28] MEDS: LORazepam 1 mg Tablet PO (20:18)
[2020-03-28 20:23] VITALS: PULSE 87; RESP 20; O2SAT 96
[2020-03-28] MEDS: trazodone 50 mg Tablet PO (20:42)
[2020-03-28 21:59] VITALS: BP 133/78; PULSE 69; RESP 17; TEMP 36.7; O2SAT 96
[2020-03-29 06:00] VITALS: BP 112/64; PULSE 69; RESP 17; TEMP 36.6; O2SAT 95
[2020-03-29 06:56] LABS: Glucose Point of Care 111 mg/dL (70-110)
[2020-03-29 07:06] LABS: Basophils # 0.1 10^3/uL (0.0-0.1); Basophils % 0.7 %; Eosinophils # 0.1 10^3/uL (0.0-0.8); Eosinophils % 1.1 %; Hematocrit 46.8 % (37.0-47.0); Lymphocytes # 2.4 10^3/uL (0.8-4.8); Lymphocytes % 22.3 %; Mean Corpuscular HGB Conc 32.1 g/dL (30.0-36.0); Mean Corpuscular Hemoglobin 28.1 pg (28.0-34.0); Mean Corpuscular Volume 87.6 fL (81-99); Mean Platelet Volume 10.3 fL (7.4-10.4); Neutrophils # 7.01 10^3/uL (1.8-7.7); Neutrophils % 66.6 %; Nucleated Red Blood Cells % 0 %; Platelet Count 254 10^3/cmm (130-400); Red Blood Count 5.34 10^6/uL (4.1-5.3); Red Cell Distribution Width 13.2 % (12.1-15.1); White Blood Count 10.5 10^3/uL (4.0-10.0)
[2020-03-29 07:58] LABS: Alanine Aminotransferase 21 U/L (0-33); Albumin Level 3.8 g/dL (3.5-5.2); Alkaline Phosphatase 71 IU/L (35-105); Anion Gap 12.5 (5-19); Aspartate Amino Transferase 12 U/L (0-32); Blood Urea Nitrogen 13 mg/dL (6-20); Calcium 9.1 mg/dL (8.5-10.5); Carbon Dioxide 25 mmol/L (22-29); Chloride 103 mmol/L (98-107); Globulin 2.4 g/dL (1.3-4.6); Glomerular Filtration Rate 142.1 mL/min (90-130); Glucose 117 mg/dL (65-115); Osmolality Calculated 283 mOsm/kg (285-295); Potassium 4.5 mmol/L (3.5-5.1); Sodium 136 mmol/L (136-145); Total Bilirubin 0.4 mg/dL (0.15-1.2); Total Protein 6.2 g/dL (6.6-8.7)
[2020-03-29] MEDS: levothyroxine 150 mcg Tablet 75 MCG PO (08:32)
[2020-03-29] MEDS: LORazepam 1 mg Tablet PO ×2 (08:32→20:11)
[2020-03-29] MEDS: metoprolol succinate ER (24 HR) 100 mg Tablet PO (08:32)
[2020-03-29] MEDS: citalopram 20 mg Tablet PO (08:32)
[2020-03-29] MEDS: pantoprazole DR 40 mg Tablet PO (08:32)
[2020-03-29] MEDS: acetaminophen 325 mg Tablet PO ×2 (08:47→21:26)
[2020-03-29] MEDS: naproxen 500 mg Tablet PO (11:12)
[2020-03-29 11:42] LABS: Glucose Point of Care 112 mg/dL (70-110)
[2020-03-29 14:00] VITALS: BP 122/89; PULSE 70; RESP 20; TEMP 36.3; O2SAT 97
--- NOTE | 2020-03-29 14:55 | PM.NPN ---
Subjective NPU Subjective: Interval history: Patient states that her guardian will not agree to discharge from this unit at this time. Mental Status Exam MSE Comments: Mental Status Exam: She is alert and awake and interpersonally engaged. Her eye contact is good. Appearance: hygiene is fair; no gross neurological deficits., gait is unremarkable; AIMS=0 Speech: Speech is of normal rate and rhythm and easily understood. Thought processes: Thought processes are concrete . Judgment is adequate for safety without supervision. Associations: intact Psychotic processes: There is no indication of guarding or paranoia. There is no attention to the internal stimuli. Auditory and visual hallucinations are denied. Judgment: Insight is fair. Problem solving skills are good. Orientation: The patient is oriented to person, place time and situation. Memory: no deficits noted in immediate, intermediate, or remote spheres. Attention: The patient is alert and interpersonally engaged. Language: Verbalizations are coherent. Fund of knowledge: Fund of knowledge is poor Affect/Mood: Affect is consistent with a euthymic mood. pt denies suicidal ideation Affective range is appropriate. Psychosis: Perception is impaired largely through the consequences of her maladaptive personality. There is no indication of jesenia psychosis. However her difficulty in decision making requires continued supervision by her guardian.. Cognition: Patient Appearance: Appropriate Level of Consciousness: Awake, Alert, Appropriate and Follows Commands Patient Cognition Impaired: No Ability to Follow Directions: Good Patient Orientation (long list): Person, Place and Time Comprehension Ability: No Impairment Hallucination Type: None Delusion Description: Not Present Thought Process: Appropriate Affect: Affect Description: Appropriate Depressive Symptoms: Back Pain, Crying Spells, Difficulty Sleeping, Feelings of Worthlessness, Hopelessness, Insomnia, Increased Anxiety, Increased Fatigue, Increased Irritability, Isolating Oneself From Friends and Family, Loss of Energy, Loss of Interest in Activities, Low Self Esteem, Muscle Pain, Muscle Tension and Unexplained Stomach Pain Behavior: Patient Behavior: Appropriate Speech Pattern: Appropriate and Clear Vitals/I&O/Wt Last Vital Signs Temp 97.9 F 03/29/20 06:00 Pulse 69 03/29/20 06:00 Resp 17 03/29/20 06:00 BP 112/64 03/29/20 06:00 Pulse Ox 95 03/29/20 06:00 Data NPU : 03/29/20 07:00 03/29/20 07:00 A&P Assessment and plan (1) Umbilical hernia: Status: Acute (2) Morbid obesity: Status: Acute (3) Overdose: Status: Acute Qualifiers: Encounter type: initial encounter Injury intent: intentional self-harm Qualified Code(s): T50.902A - Poisoning by unspecified drugs, medicaments and biological substances, intentional self-harm, initial encounter (4) Mild intellectual disability: Status: Acute (5) Adjustment disorder with mixed disturbance of emotions and conduct: Status: Acute Additional A&P Information The patient was admitted to the adult psychiatric unit and entered into the form of individual and group therapies as part of the unit protocol. They were provided 24-hour access to medication supervision and therapeutic activities by trained psychiatric nursing. She is stable on medication that is being monitored on a regular and consistent basis by the outpatient program. No medication changes are going to be entertained at this time. Hospital day #2:Patient clarifies that she was not refusing to come to this unit. She did not feel it was necessary to come to this unit. She delineated very clearly the administrative situation that she finds herself. Under guardianship and the decision tree that is required to find her place to go when she leaves the hospital. We are agreed that no medication changes are indicated while she is in the hospital. She disagrees that her choice of action that led to her hospitalization needs revision. However she is thinking very clearly and responding in the hospital in a reasonable manner. Hospital day #3: The patient is ready for discharge but her guardian is refusing to pick her up at the hospital and is insisting on placement and medication changes. This physician contacted the guardian and discussed the situation. 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 However there is no indication of imminent danger to self or others. Neither is there an indication or cluster symptoms that would indicate significant benefit with an acute medication change. It was strongly recommended that the patient is being monitored by the outpatient psychiatrist who knows her better. With regard to the guardians request for placement in a structured living situation, it is the opinion of this physician that that would likely be therapeutic. Could be a challenge as the patient is adept at sabotaging if efforts by others to persuade her to behave in a manner that is not to her liking. However, according to her guardian, continued current lifestyle and pattern of decision-making will have a poor outcome. Involuntary Hold Information 96 Hour Hold: 96 Hour Involuntary Admission: No Attestations NPU Medical Necessity Statement*: Patient remained in the hospital 1 more night and be discharged tomorrow morning. 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
[2020-03-29 16:33] LABS: Glucose Point of Care 136 mg/dL (70-110)
[2020-03-29 19:49] LABS: Glucose Point of Care 126 mg/dL (70-110)
[2020-03-29 19:50] VITALS: BP 143/89; PULSE 78; RESP 17; TEMP 37; O2SAT 97
[2020-03-29] MEDS: lisinopril 20 mg Tablet PO (20:11)
[2020-03-29 22:30] VITALS: PULSE 88; RESP 18; O2SAT 95
--- NOTE | 2020-03-30 00:04 | PC.NURSE ---
skin breakdown Bathed patient, applied barrier cream to the underside of the large skin folds, axillary, and under both breasts. Reddened areas under each fold due to moisture.
[2020-03-30] MEDS: hyDROXYzine 25 mg Capsule 50 MG PO (00:09)
[2020-03-30] MEDS: cetylpyridinium Lozenge 1 EACH MUCOUS MEM (04:44)
[2020-03-30 05:14] VITALS: BP 139/83; PULSE 87; RESP 18; TEMP 36.7; O2SAT 95
[2020-03-30] MEDS: acetaminophen 325 mg Tablet PO ×2 (05:22→09:40)
--- NOTE | 2020-03-30 06:59 | PC.NURSE ---
pt blood glucose 107
[2020-03-30 07:01] LABS: Glucose Point of Care 107 mg/dL (70-110)
[2020-03-30 07:16] LABS: Basophils # 0.1 10^3/uL (0.0-0.1); Basophils % 0.6 %; Eosinophils # 0.1 10^3/uL (0.0-0.8); Eosinophils % 1.1 %; Hematocrit 44.2 % (37.0-47.0); Hemoglobin 14.2 g/dL (11.5-15.3); Lymphocytes # 2.1 10^3/uL (0.8-4.8); Lymphocytes % 16.9 %; Mean Corpuscular HGB Conc 32.1 g/dL (30.0-36.0); Mean Corpuscular Hemoglobin 28.5 pg (28.0-34.0); Mean Corpuscular Volume 88.6 fL (81-99); Mean Platelet Volume 10.2 fL (7.4-10.4); Monocytes # 1.1 10^3/uL (0.2-0.9); Neutrophils # 9.07 10^3/uL (1.8-7.7); Nucleated Red Blood Cells % 0 %; Platelet Count 219 10^3/cmm (130-400); Red Blood Count 4.99 10^6/uL (4.1-5.3); Red Cell Distribution Width 13.2 % (12.1-15.1); White Blood Count 12.6 10^3/uL (4.0-10.0)
[2020-03-30 07:32] LABS: Alanine Aminotransferase 18 U/L (0-33); Albumin Level 3.7 g/dL (3.5-5.2); Alkaline Phosphatase 69 IU/L (35-105); Aspartate Amino Transferase 12 U/L (0-32); Blood Urea Nitrogen 11 mg/dL (6-20); Calcium 8.8 mg/dL (8.5-10.5); Carbon Dioxide 24 mmol/L (22-29); Chloride 101 mmol/L (98-107); Globulin 2.4 g/dL (1.3-4.6); Glomerular Filtration Rate 256.2 mL/min (90-130); Glucose 109 mg/dL (65-115); Osmolality Calculated 278 mOsm/kg (285-295); Sodium 134 mmol/L (136-145); Total Bilirubin 0.6 mg/dL (0.15-1.2); Total Protein 6.1 g/dL (6.6-8.7)
[2020-03-30] MEDS: pantoprazole DR 40 mg Tablet PO (08:11)
[2020-03-30] MEDS: LORazepam 1 mg Tablet PO (08:11)
[2020-03-30] MEDS: metoprolol succinate ER (24 HR) 100 mg Tablet PO (08:11)
[2020-03-30] MEDS: levothyroxine 150 mcg Tablet 75 MCG PO (08:11)
[2020-03-30] MEDS: citalopram 20 mg Tablet PO (08:11)
[2020-03-30 09:34] VITALS: BP 139/83; PULSE 87; RESP 18; TEMP 36.7; O2SAT 95
--- NOTE | 2020-03-30 10:27 | P.DS_ITS ---
Diagnoses at Discharge Discharge Diagnosis (1) Umbilical hernia: Status: Chronic (2) Morbid obesity: Status: Chronic (3) Overdose: Status: Resolved Qualifiers: Encounter type: initial encounter Injury intent: intentional self-harm Qualified Code(s): T50.902A - Poisoning by unspecified drugs, medicaments and biological substances, intentional self-harm, initial encounter (4) Mild intellectual disability: Status: Chronic (5) Adjustment disorder with mixed disturbance of emotions and conduct: Status: Resolved Reason for Visit Reason for Visit: OD Brief History: Charity Blake is a 34 year old female who has history of recurrent admissions to the hospital secondary to psychiatric behaviors, is currently under guardianship to her and secondary to borderline healthy, she has been struggling with depressive disorder, came in today after taking 22 tablets of 1 mg of Ativan. Patient is stating that she was upset, has been going to some emotional turmoil, she is not suicidal, she just wanted to take these many tablets to calm her down. She is denying any plans or feelings to hurt herself. She called her cousin when she took 22 tablets, her cousin called EMS to bring her to the hospital. She received charcoal treatment because her intake was about 1 hour before her arrival to the ER. Patient wanted to go to bathroom to have a bowel movement, she was complaining of abdominal cramps and pain. She endorses history of umbilical hernia. She is denying fever, nausea, vomiting, constipation, dysuria. Psychiatric consult: History of Present Illness Charity Blake is a 34 year old female known to this physician from previous inpatient contact. There is a history of stress within her psychosocial sphere and poor coping skills. Judging from the mental health note from last week, her difficulties at home between she and her mother were increasing. She had a plan to put distance between she and her mother between whom the relationship has been hina for some time. Apparently, that plan failed. In response, she impulsively ingested 20 to lorazepam. She specifically states that this was not a suicide attempt. She occasionally thinks about suicide and if she ever gets to that point, she knows that there is a more lethal way of completing the task. She was simply frustrated with a combination of stress between she and her mother and her difficulty with pain from her abdominal hernia. The patient is in significant emotional distress. She details of the p sychosocial situation in which she finds herself. She does not feel that it is healthy that she lives with her mother. She claimed that her mother blames the patient for the patient's father's . There is a history of discord between the 2. She is under legal guardianship to her aunt. While the patient admits that living with her mother is not a emotionally healthy position, she also admi ts that she has sabotaged many prior placements. She feels that her aunt and the state are trying to figure out where she needs to go next. Her degree of distress was noted. However, when the patient was offered to come to the psychiatric unit on a crisis intervention admission, she absolutely refused. We discussed potential benefits in the form of being able to have a safe place while she and her aunt figured out a better place for her to live than her mother. However the patient again refused stating that she would rather go home and live back with her mother than a come to the psychiatric unit. She continued to deny any suicidal or homicidal ideation. She continued to insist that the events leading to this hospitalization were not intended to cause a suicide and believes that we are cognitively disabled if we think that that was her intent. Hospital Course Hospital Course Surgical Consult: History of Present Illness Charity Blake is a 34 year old female who was recently in the hospital after taking 20+ tablets of Ativan. While she was in the hospital, someone became aware that she probably had a ventral hernia that was somewhat uncomfortable for her. A CAT scan was performed and showed a fat-containing containing hernia in the mid abdomen. I was asked to see her in consultation. It sounds like she was initially placed on a 96-hour hold but after psychiatry had seen her they discontinued the hold; this was apparently shortly after I was asked to see her in consultation. My understanding from the nursing staff was the patient was probably going to be discharged and would have outpatient follow-up for her hernia, but as it turned out, she ended up in the [facility]. After I found this out I went to talk to her about her hernia. She says it has been there for several years. She said this only been uncomfortable for her over the last several months. She says she has been losing weight and it seems to be more noticeable. She has not had any obstructive symptoms. She has never had any surgery in the area. Assessment and plan (1) History of ventral hernia repair: The patient had this hernia for several years on imaging. It may be slightly larger than what it was seen initially. It is uncomfortable for her. Since it only contains some fat, this is not an emergency for repair but I told the patient it certainly could be repaired if she desires to have this done as an outpatient at some point. It sounds like she may not be involved in all of her medical decisions and so she will have to discuss the issue with her aunt. Please call if I can be of further help. Status: Deleted (2) Ventral hernia: Status: Acute Hospital day #2:Patient clarifies that she was not refusing to come to this unit. She did not feel it was necessary to come to this unit. She delineated very clearly the administrative situation that she finds herself. Under guardianship and the decision tree that is required to find her place to go when she leaves the hospital. We are agreed that no medication changes are indicated while she is in the hospital. She disagrees that her choice of action that led to her hospitalization needs revision. However she is thinking very clearly and responding in the hospital in a reasonable manner. Hospital day #3: The patient is ready for discharge but her guardian is refusing to pick her up at the hospital and is insisting on placement and medication changes. This physician contacted the guardian and discussed the situation. 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 However there is no indication of imminent danger to self or others. Neither is there an indication or cluster symptoms that would indicate significant benefit with an acute medication change. It was strongly recommended that the patient is being monitored by the outpatient psychiatrist who knows her better. With regard to the guardians request for placement in a structured living situation, it is the opinion of this physician that that would likely be therapeutic. Could be a challenge as the patient is adept at sabotaging if efforts by others to persuade her to behave in a manner that is not to her liking. However, according to her guardian, continued current lifestyle and pattern of decision-making will have a poor outcome. Involuntary Hold Information 96 Hour Hold: 96 Hour Involuntary Admission: No Mental Status Exam MSE Comments: Discharge Mental Status Exam: Appearance: hygiene is good; no gross neurological deficits., gait is unremarkable; AIMS=0 Speech: Speech is of normal rate and rhythm and easily understood. Thought processes: Thought processes are abstract. Judgment is adequate for safety. Associations: intact Psychotic processes: There is no indication of guarding or paranoia. There is no attention to the internal stimuli. Auditory and visual hallucinations are denied. Judgment: Insight is fair. Problem solving skills are adequate for safety. Orientation: The patient is oriented to person, place time and situation. Memory: no deficits noted in immediate, intermediate, or remote spheres. Attention: The patient is alert and interpersonally engaged. Language: Verbalizations are coherent. Fund of knowledge: Fund of knowledge is adequate. Affect/Mood: Affect is consistent with a euthymic mood. denied suicidal ideation Affective range is appropriate. Psychosis: perception unimpaired except through cognitive distortion; reality testing intact. Discharge Data Data Completed and Pending: Completed Studies During Hospitalization Category Date Time Status CT abdomen pelvis wo/w [id number] Routin e Cat Scan 03/27/20 13:08 Completed Pending at discharge Category Date Time Status Arterial Blood Ga s W/O [place] Stat Lab 03/26/20 22:21 Ordered Rapid Strep A Ramila t Urgent Lab 03/30/20 10:17 Ordered Labs from last 24 hours 03/30/20 03/30/20 03/30/20 07:07 07:07 06:56 WBC 12.6 H RBC 4.99 Hgb 14.2 Hct 44.2 MCV 88.6 MCH 28.5 MCHC 32.1 RDW 13.2 Plt Count 219 MPV 10.2 Neut % (Auto) 72.0 Lymph % (Auto) 16.9 [place] % (Auto) 9.0 Eos % (Auto) 1.1 Baso % (Auto) 0.6 Neut # (Auto) 9.07 H Lymph # (Auto) 2.1 [place] # (Auto) 1.1 H Eos # (Auto) 0.1 Baso # (Auto) 0.1 Nucleated RBC % (a uto) 0 Nucleated RBCs # 0.0 Sodium 134 L Potassium 4.0 Chloride 101 Carbon Dioxide 24 Anion Gap 13.0 BUN 11 Creatinine 0.3 L GFR Calculation 256.2 H Glucose 109 POC Glucose 107 Calculated Osmolal ity 278 L Calcium 8.8 Total Bilirubin 0.6 AST 12 ALT 18 Alkaline Phosphata se 69 Total Protein 6.1 L Albumin 3.7 Globulin 2.4 03/29/20 03/29/20 03/29/20 19:44 16:25 11:19 WBC RBC Hgb Hct MCV MCH MCHC RDW Plt Count MPV Neut % (Auto) Lymph % (Auto) [place] % (Auto) Eos % (Auto) Baso % (Auto) Neut # (Auto) Lymph # (Auto) [place] # (Auto) Eos # (Auto) Baso # (Auto) Nucleated RBC % (a uto) Nucleated RBCs # Sodium Potassium Chloride Carbon Dioxide Anion Gap BUN Creatinine GFR Calculation Glucose POC Glucose 126 136 112 Calculated Osmolal ity Calcium Total Bilirubin AST ALT Alkaline Phosphata se Total Protein Albumin Globulin Vitals: Last Vital Signs Temp 98.0 F 03/30/20 09:34 Pulse 87 03/30/20 09:34 Resp 18 03/30/20 09:34 BP 139/83 03/30/20 09:34 Pulse Ox 95 03/30/20 09:34 Discharge Plan Discharge Condition: Stable Prescriptions: Continued Toviaz 4 mg tablet extended release 24 hr 4 mg PO .QHS RF: 0 nitrofurantoin monohyd/m-cryst [Macrobid] 100 mg capsule 100 mg PO BID Qty: 60 RF: 1 hydrocodone-acetaminophen [[place]] 5-325 mg tablet 1 tab PO Q6H PRN (Reason: pain) Qty: 14 RF: 0 ondansetron 4 mg tablet,disintegrating 4 mg PO Q6H PRN (Reason: nausea and vomiting) Qty: 14 RF: 0 metformin 500 mg tablet 500 mg PO BID Qty: 60 RF: 0 potassium chloride 10 mEq capsule, extended release 10 meq PO DAILY Qty: 30 RF: 0 furosemide [Lasix] 20 mg tablet 20 mg PO QAM Qty: 30 RF: 0 fluticasone propionate [Flonase Allergy Relief] 50 mcg/actuation spray,suspension 2 spray INTRANASAL DAILY Qty: 30 RF: 0 trazodone 100 mg tablet 100 mg PO .QHS Qty: 30 RF: 0 lorazepam 1 mg tablet See Rx Instructions PO .COMPLEX Qty: 75 RF: 0 buspirone 15 mg tablet 15 mg PO TID Qty: 90 RF: 0 loratadine 10 mg tablet 10 mg PO DAILY Qty: 30 RF: 0 tiagabine 4 mg tablet 4 mg PO BID Qty: 60 RF: 0 omeprazole 40 mg capsule,delayed release(DR/EC) 40 mg PO DAILY Qty: 30 RF: 0 levothyroxine 75 mcg/mL solution 75 mcg PO DAILY Qty: 30 RF: 0 albuterol sulfate 90 mcg/actuation HFA aerosol inhaler 2 puff INHALATION Q4H PRN (Reason: Shortness Of Breath) Qty: 30 RF: 0 lisinopril 20 mg tablet 20 mg PO DAILY Qty: 30 RF: 0 metoprolol succinate 100 mg capsule,sprinkle,ER 24hr 100 mg PO DAILY Qty: 30 RF: 0 tranexamic acid 650 mg tablet 650 mg PO DAILY PRN (Reason: unknown) Qty: 30 RF: 0 citalopram [Celexa] 20 mg tablet 20 mg PO DAILY Qty: 30 RF: 0 ibuprofen 600 mg tablet 600 mg PO Q6H PRN (Reason: Pain) Qty: 60 RF: 0 nystatin [Nystop] 100,000 unit/gram powder See Rx Instructions .ROUTE .COMPLEX Qty: 30 RF: 0 Discontinued multivitamin Tablet 1 tab PO DAILY RF: 0 naproxen 500 mg tablet 500 mg PO DAILY PRN (Reason: Pain) RF: 0 citalopram 10 mg tablet 5 mg PO DAILY Qty: 15 RF: 5 fluconazole 150 mg tablet 150 mg PO DAILY RF: 0 ondansetron HCl [Zofran] 4 mg tablet 4 mg PO Q6H PRN (Reason: nausea and vomiting) Qty: 10 RF: 0 Discharge Orders: Discharge Order (Routine); Ordered 03/30/20 Ordered By: Zeferino Yin Referrals: Selma Robles MD [Primary Care Provider] - 4-7 days Jaxon Kendrick MD [Physician] - 2 weeks (Umbilical hernia) Brenda Frazier [Therapist] - 04/06/20 10:00 am Sharath Demarco DO [Staff Physician] - 05/03/20 10:00 am Discharge Diet: Usual diet Discharge Activity: Resume usual activity Patient Instructions: Depression (DC), Anxiety (DC) Activity Restrictions/Additional Instructions: In case of any anxiety, symptoms of depression, or any other concerning symptoms please seek medical attention without delay. Please follow-up with behavioral health care providers to help with adjustment of your medications, management of chronic conditions. Continue psychotherapy. Please do not take any more medications than your prescribed as this may be dangerous to your health or life. Please follow-up with surgery in office regarding umbilical hernia. If you develop severe abdominal pain, vomiting, inability to take food or drink, fever, or other concerning symptoms please call an ambulance. Please stop smoking. Discharge Attestations NPU Time Spent in Discharge Care*: greater than 30 min Coding Level of Care Code Acute [employer] Technologist for g Fwd Diagnoses Umbilical hernia K42.9 Morbid obesity E66.01 Overdose T50.902A Encounter type: initial encounter Injury intent: intentional self-harm Mild intellectual disability F70 Adjustment disorder with mixed disturbance of emotions and conduct F43.25
[2020-03-30 11:51] LABS: Rapid Strep A Test Negative (Negative)
== END 2020-03-30 11:00 | disposition home or self-care (01) | DRG 918 ==
LOC: ER 19:37 → MEDSURG 03-27 01:25 → NP 03-27 18:17
PROVIDERS: Emergency Medicine; Internal Medicine; Admitting Provider Internal Medicine; PCP Family Medicine; Visit Provider Psychiatry & Neurology Psychiatry
DX: T42.4X2A Poisoning by benzodiazepines, intentional self-harm, initial encounter (principal); Z68.44 Body mass index [BMI] 60.0-69.9, adult; R45.851 Suicidal ideations; K43.9 Ventral hernia without obstruction or gangrene; I10 Essential (primary) hypertension; D75.1 Secondary polycythemia; F17.210 Nicotine dependence, cigarettes, uncomplicated; F70 Mild intellectual disabilities; E66.01 Morbid (severe) obesity due to excess calories; Z87.440 Personal history of urinary (tract) infections; G47.30 Sleep apnea, unspecified; E86.0 Dehydration; F43.25 Adjustment disorder with mixed disturbance of emotions and conduct; N28.89 Other specified disorders of kidney and ureter; Z79.891 Long term (current) use of opiate analgesic
CPT/HCPCS: 12345; 36415; 36416; 74178; 80053; 80306; 80307; 81025; 82962; 83690; 83735; 84443; 85025; 87081; 87880; 94660; 96372; 99285; G0378; J1650; J1815; Q9967

== ENCOUNTER → 2020-04-25 09:34 | Outpatient (BNVA) | payer MEDICARE, MEDICAID, SELFPAY | PROVIDERS: PCP Family Medicine; Visit Provider Urology | DX: N39.0 Urinary tract infection, site not specified (principal) | CPT/HCPCS: 81003 ==

== ENCOUNTER 2020-05-22 16:52 | Inpatient (IN) | payer MEDICARE, MEDICAID, SELFPAY ==
[2020-05-22 16:53] VITALS: BP 171/112; PULSE 96; RESP 18; O2SAT 98; BMI 65.1
--- NOTE | 2020-05-22 16:56 | ECG_ITS ---
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 Measurements Intervals [place] Rate: 74 P: 42 MI: 215 QRS: 15 QRSD: 94 T: 32 QT: 381 QTc: 425 Interpretive Statements SINUS RHYTHM WITH FIRST DEGREE AV BLOCK Compared to ECG 10/21/2018 23:33:12 First degree AV block now present Electronically Signed On 05-22-2020 20:08:53 [employer] DRILLER by Alison Robles M.D. [email or web address]
--- NOTE | 2020-05-22 16:56 | ED_ITS ---
HPI - Psych General: Chief Complaint: Psychiatric Symptoms Stated Complaint: 96 HOUR HOLD Time Seen by Provider: 05/22/20 16:53 Source: patient Mode of arrival: ambulatory Limitations: no limitations History of Present Illness: HPI Narrative: Carrie is a 35-year-old female who comes in under 96-hour hold for suicidal ideation. Please see the affidavits for details. Patient denies these reports but she is already been placed under the hold. Patient states that she will cooperate to get this completed. Review of Systems Const: Denies: fever(s), chills, body aches, fatigue, malaise or diaphoresis Eyes: Denies: change in vision, blurry vision, photophobia, eye discomfort, eye discharge, eye redness or yellow eyes ENMT: Denies: throat pain, odynophagia, hoarseness, swelling of lips/tongue, ear or mastoid pain, ear discharge, change in hearing or nasal discharge Card: Denies: chest pain, palpitations, irregular heart rhythm, edema, lightheadedness, syncope, pre-syncope, dyspnea on exertion or orthopnea Resp: Denies: dyspnea, productive cough, non-productive cough, wheezing, hemoptysis or chest congestion GI: Denies: abdominal pain, nausea, vomiting, hematemesis, coffee ground emesi s, heartburn, diarrhea, constipation, GI cramping, hematochezia or melena : Denies: flank pain, dysuria, urinary frequency, urinary urgency or hematuria Musc: Denies: neck pain, back pain, extremity pain, extremity swelling, joint pain, joint swelling, joint redness, joint warmth or joint stiffness Skin/Breast: Denies: rash, pruritus, erythema, skin pain or skin tenderness Neuro: Denies: headache(s), numbness in extremities, weakness in extremities, sensory changes, lack of coordination, difficulty walking, dizziness, vertigo, confusion, Slurred speech present or seizure-like activity Liang/Lymph: Denies: easy bruising, easy bleeding, petechiae, purpura or enlarged lymph nodes All/Imm: Denies: urticaria, throat swelling, tongue swelling, facial swelling or acute wheezing PFS ED PFSH: Medical History Breakthrough seizure Cigarette smoker Flank pain with history of urolithiasis Gastritis History of kidney stones Major depression, recurrent, full remission Migraine Mild intellectual disability Morbid obesity Recurrent UTI Sleep apnea Surgical History Ganglion cyst of dorsum of left wrist History of carpal tunnel surgery Hx of tympanostomy bilateral Left elbow fracture Repair of left elbow fracture/olecranon process Family History Other Unknown family medical history Social History Smoking and tobacco status: current every day smoker Alcohol intake: current Alcohol intake frequency: holidays/special occasions only Lives independently: No Household members: family Marital status: Single Current occupational status: disabled Current gender identity: Female Female Reproductive History: Date of last menstrual period: 03/26/20 Physical Exam Const: COMMON NORMALS: no acute distress, patient oriented x3, no limitations and alert GENERAL APPEARANCE: cooperative HENMT: COMMON NORMALS: normocephalic, atraumatic, external ears normal, EAC's normal and Normal external nose present HEAD & SCALP: normal to inspection, normocephalic and atraumatic FACE & SINUS: normal facial exam and face symmetric NOSE: Normal external nose present and Normal nares present EXTERNAL EAR: Yes external ears normal EXTERNAL AUDITORY CANAL: EAC's normal MOUTH: Normal oral and palatal mucosa present, lip normal and tongue normal Eye: COMMON NORMALS: Equal, round and reactive pupils present and conjunctivae normal GENERAL EYE: appearance normal, both eyes and all related structures ALIGNMENT: Yes alignment normal PERIORBITAL: periorbital findings normal EYELID: eyelids normal CONJUNCTIVA: Yes conjunctivae normal SCLERA: sclerae normal PUPIL: Yes Equal, round and reactive pupils present Neck/C-Spine: COMMON NORMALS: full ROM, no lymphadenopathy, supple, no meningeal signs and no JVD GENERAL: Yes normal visual inspection and Yes trachea midline Chest: COMMONS NORMALS: normal inspection of the chest and normal palpation of entire chest wall Resp: COMMON NORMALS: normal respiratory effort, No retractions, No use of accessory muscles and clear to auscultation bilaterally EFFORT & INSPECTION: Yes able to speak in complete sentences and Yes symmetric chest movement AUSCULTATION: clear to auscultation bilaterally, no crackles, no rales, no rhonchi and no wheezes Cardio: COMMON NORMALS: no JVD, regular rate, regular rhythm, S1 normal heart sound present and S2 normal heart sound present RATE: regular rate RHYTHM: regular rhythm HEART SOUNDS: S1 normal heart sound present, S2 normal heart sound present, no click, no gallops, no murmurs and no rubs GI: COMMON NORMALS: Soft to palpation and No hepatosplenomegaly present PALPATION: Yes Soft to palpation, No Tenderness to palpation present (GI), No Guarding due to palpation present (GI), No Rigid due to palpation, Yes No hepatosplenomegaly present, No Hernia present, No Palpable mass present and No Pulsatile mass present : COMMON NORMALS: Yes no CVA tenderness BLADDER/KIDNEY EXAM: Yes no CVA tenderness EXTERNAL FEMALE EXAM: No Hernia present Back/Pelvis: COMMON NORMALS: no CVA tenderness, thoracic and lumbar spine normal to inspection, no thoracic nor lumbar tenderness and thoraco-lumbar ROM normal Extremity: COMMON NORMALS: normal to inspection, full ROM, capillary refill normal, no joint enlargement, no clubbing, cyanosis or edema and no calf tenderness Neuro: COMMON NORMALS: patient oriented x3, CN's II-XII intact bilaterally, moves all extremities, no focal motor deficits and no sensory deficits noted SENSORIUM/ORIENTATION: Yes alert MENINGEAL SIGNS: Yes no meningeal signs SPEECH: speech normal Psych: COMMON NORMALS: mental status grossly normal, Normal thought process present, cooperative, normal affect, speech normal and activity/motor behavior normal SPEECH: Yes normal speech THOUGHT PROCESS: Normal thought process present Skin: COMMON NORMALS: no rashes or lesions noted, turgor normal, no jaundice, no petechiae and no mottling GENERAL SKIN EXAM: no rashes or lesions noted and turgor normal MDM - Psych MDM Narrative: Medical decision making narrative: Case reviewed with Dr. Lynne, he agrees accept the patient to the neuropsychiatric unit Discharge Plan Discharge Patient Disposition: Placed in Observation Admit Provider: Pasha Lynne Clinical Impression: Suicidal ideation Condition: Stable Coding Level of Care Code ED [employer] C[employer]er for Kleber Ramos
[2020-05-22 17:36] LABS: Basophils # 0.1 10^3/uL (0.0-0.1); Eosinophils # 0.1 10^3/uL (0.0-0.8); Eosinophils % 1.5 %; Hemoglobin 13.9 g/dL (11.5-15.3); Lymphocytes # 2.5 10^3/uL (0.8-4.8); Lymphocytes % 29.8 %; Mean Corpuscular HGB Conc 31.6 g/dL (30.0-36.0); Mean Corpuscular Volume 88.5 fL (81-99); Mean Platelet Volume 10.3 fL (7.4-10.4); Monocytes # 0.7 10^3/uL (0.2-0.9); Monocytes % 8.7 %; Neutrophils # 4.94 10^3/uL (1.8-7.7); Neutrophils % 58.6 %; Nucleated Red Blood Cells % 0 %; Platelet Count 288 10^3/cmm (130-400); Red Blood Count 4.97 10^6/uL (4.1-5.3); Red Cell Distribution Width 13.4 % (12.1-15.1); White Blood Count 8.4 10^3/uL (4.0-10.0)
[2020-05-22 17:58] LABS: HCG, Serum Qual Negative (Negative)
[2020-05-22 18:01] VITALS: PULSE 71; RESP 16; O2SAT 98
[2020-05-22 18:06] LABS: Alanine Aminotransferase 18 U/L (0-33); Albumin Level 4.1 g/dL (3.5-5.2); Alkaline Phosphatase 66 IU/L (35-105); Aspartate Amino Transferase 13 U/L (0-32); Blood Urea Nitrogen 8 mg/dL (6-20); Calcium 9.3 mg/dL (8.5-10.5); Carbon Dioxide 27 mmol/L (22-29); Chloride 103 mmol/L (98-107); Globulin 2.5 g/dL (1.3-4.6); Glomerular Filtration Rate 114.4 mL/min (90-130); Glucose 101 mg/dL (65-115); Osmolality Calculated 284 mOsm/kg (285-295); Sodium 138 mmol/L (136-145); Thyroid Stimulating Hormone 1.85 uIU/mL (0.27-4.20); Total Bilirubin 0.3 mg/dL (0.15-1.2); Total Protein 6.6 g/dL (6.6-8.7)
[2020-05-22 18:08] LABS: Acetaminophen < 5.0 ug/mL (10-30); Alcohol Level < 10 mg/dL (0-10); Salicylate < 0.3 mg/dL (3-10)
[2020-05-22 18:40] LABS: Amphetamines Screen Urine Negative (Negative); Barbiturates Screen Urine Negative (Negative); Benzodiazepines Screen Urine Positive (Negative); Cocaine Screen Urine Negative (Negative); Opiate Screen Urine Positive (Negative); PCP Screen Urine Negative (Negative); THC Screen Urine Negative (Negative)
--- NOTE | 2020-05-22 19:04 | PC.NURSE ---
REPORT RECEIVED FROM SONYA FROST, CARE TRANSFERRED TO SANTOSH HOBBS
[2020-05-22 19:20] VITALS: BP 156/106; PULSE 78; RESP 18; TEMP 37.1; O2SAT 99
[2020-05-22 21:22] VITALS: BP 148/101; PULSE 81; RESP 16; TEMP 36.6; O2SAT 96
[2020-05-22] MEDS: trazodone 100 mg Tablet PO (23:14)
[2020-05-22] MEDS: nystatin powder 15 gm Btl 1 APPLIC TOPICAL (23:14)
[2020-05-22] MEDS: albuterol 8 gm MDI 2 PUFF INHALATION (23:55)
[2020-05-22 23:56] VITALS: PULSE 77; RESP 18; O2SAT 97
[2020-05-23 06:00] VITALS: BP 142/98; PULSE 72; RESP 16; TEMP 523.8; TEMP 975; O2SAT 96
[2020-05-23 07:48] LABS: Glucose Point of Care 108 mg/dL (70-110)
[2020-05-23] MEDS: nitrofurantoin SR (BID) 100 mg Capsule PO ×2 (08:16→17:21)
[2020-05-23] MEDS: multivitamin therapeutic Tablet 1 TAB PO (08:16)
[2020-05-23] MEDS: citalopram 20 mg Tablet PO (08:16)
[2020-05-23] MEDS: potassium chloride ER 10 mEq Tablet PO (08:16)
[2020-05-23] MEDS: citalopram 20 mg Tablet 5 MG PO (08:16)
[2020-05-23] MEDS: pantoprazole DR 40 mg Tablet PO (08:16)
[2020-05-23] MEDS: metoprolol succinate ER (24 HR) 100 mg Tablet PO (08:17)
[2020-05-23] MEDS: levothyroxine 150 mcg Tablet 75 MCG PO (08:17)
[2020-05-23] MEDS: LORazepam 1 mg Tablet PO (08:23)
[2020-05-23 10:10] VITALS: PULSE 71; RESP 18; O2SAT 98
[2020-05-23] MEDS: albuterol 8 gm MDI 2 PUFF INHALATION ×2 (10:10→19:30)
[2020-05-23 11:48] LABS: Glucose Point of Care 98 mg/dL (70-110)
[2020-05-23 14:00] VITALS: BP 129/87; PULSE 72; RESP 16; TEMP 36.7; O2SAT 97
--- NOTE | 2020-05-23 14:26 | PM.NHP ---
Providers/Chief Complaint Admitting Physician: Pasha Lynne MD Primary Care Provider: Selma Robles MD Chief Complaint: 96 HOUR HOLD HPI NPU History of Present Illness Charity Blake is a 35 year old female who presented to the emergency department with the following report: Chief Complaint: Psychiatric Symptoms Stated Complaint: 96 HOUR HOLD Time Seen by Provider: 05/22/20 16:53 Source: patient Mode of arrival: ambulatory Limitations: no limitations History of Present Illness: HPI Narrative: Carrie is a 35-year-old female who comes in under 96-hour hold for suicidal ideation. Please see the affidavits for details. Patient denies these reports but she is already been placed under the hold. Patient states that she will cooperate to get this completed. She was admitted to the neuropsychiatric unit for definitive treatment of those issues. The patient was admitted to the neuropsychiatric unit for definitive treatment of those issues. She presents today reporting that things have been rough since her discharge in March. She reports that when she was leaving when she expressed concern about going back and spending time with her mother. She reports that that is what got them to this point. She reports that she and her mother cannot be under the same roof. She reports that her mother just pushes her buttons and she does it on purpose. She endorses having a guardian and payee. She reports that she has enough money to be able to have her own place but that there was a document capable of being independent and so now she is caught between a rock and a hard place. She feels like she cannot go back and live with her mother that either she will or I will end up 6 feet under. But she also feels like no one believes she would be able to function independently. She reports that a place like [facility] or some other assisted living facility will be a good place for her to start and demonstrate that she is capable of independence and possibly moved to an even more independent situation later. She was very all over the place during the interview but we did review the 03/27/2020 inpatient consult. An excerpt is included below as she endorses that it is a good reflection of her situation. We discussed the risks, benefits and alternatives of increasing her Celexa but she reports that she has been on 30 before and it appeared to be too much. We began a discussion of different mood stabilizers that she might be willing to consider to add to her regimen. She reports that she is lost about 185 pounds from taking medications a certain way and she is very anxious about doing anything that might turn her weight loss in the other direction. Per her 03/27/2020 inpatient psychiatric consultation: History of Present Illness Charity Blake is a 34 year old female known to this physician from previous inpatient contact. There is a history of stress within her psychosocial sphere and poor coping skills. Judging from the mental health note from last week, her difficulties at home between she and her mother were increasing. She had a plan to put distance between she and her mother between whom the relationship has been hina for some time. Apparently, that plan failed. In response, she impulsively ingested 20 to lorazepam. She specifically states that this was not a suicide attempt. She occasionally thinks about suicide and if she ever gets to that point, she knows that there is a more lethal way of completing the task. She was simply frustrated with a combination of stress between she and her mother and her difficulty with pain from her abdominal hernia. The patient is in significant emotional distress. She details of the psychosocial situation in which she finds herself. She does not feel that it is healthy that she lives with her mother. She claimed that her mother blames the patient for the patient's father's . There is a history of discord between the 2. She is under legal guardianship to her aunt. While the patient admits that living with her mother is not a emotionally healthy position, she also admits that she has sabotaged many prior placements. She feels that her aunt and the state are trying to figure out where she needs to go next. Her degree of distress was noted. However, when the patient was offered to come to the psychiatric unit on a crisis intervention admission, she absolutely refused. We discussed potential benefits in the form of being able to have a safe place while she and her aunt figured out a better place for her to live than her mother. However the patient again refused stating that she would rather go home and live back with her mother than a come to the psychiatric unit. She continued to deny any suicidal or homicidal ideation. She continued to insist that the events leading to this hospitalization were not intended to cause a suicide and believes that we are cognitively disabled if we think that that was her intent. Admission history and physical note: Charity Blake is a 34 year old female who has history of recurrent admissions to the hospital secondary to psychiatric behaviors, is currently under guardianship to her and secondary to borderline healthy, she has been struggling with depressive disorder, came in today after taking 22 tablets of 1 mg of Ativan. Patient is stating that she was upset, has been going to some emotional turmoil, she is not suicidal, she just wanted to take these many tablets to calm her down. She is denying any plans or feelings to hurt herself. She called her cousin when she took 22 tablets, her cousin called EMS to bring her to the hospital. She received charcoal treatment because her intake was about 1 hour before her arrival to the ER. Patient wanted to go to bathroom to have a bowel movement, she was complaining of abdominal cramps and pain. She endorses history of umbilical hernia. She is denying fever, nausea, vomiting, constipation, dysuria. Diagnostics in the ER revealed sinus tachycardia, hypertensive, drug screen reviewed, polycythemia, no remarkable chemistry findings other than mentioned above Laboratory Tests 03/26/20 03/26/20 17:07 17:38 Urine Opiates Screen Positive H Ur Barbiturates Screen Negative Ur Phencyclidine Scrn Negative Ur Amphetamines Screen Negative U Benzodiazepines Scrn Positive H Urine Cocaine Screen Negative U Marijuana (THC) Screen Negative Ethyl Alcohol < 10 Past psychiatric history: Admission note form last NPU visit with this physician: September 19, 2018 I don't know why they put in here. I got angry because of all the stuff that was going on in my life and people that were trying to tell me what to do. HPI: Charity Blake is a 33-year-old woman who was admitted to the psychiatric unit on the force of affidavits sworn out by Nicole Calero, her rn case manager hospice and June Del Rio, her aunt. Describe her as complaining of worsening nightmares and exercising poor judgment especially regarding family matters. She was screaming and threatening family members. She has been crying excessively and claiming that people are stealing from her. They specifically state that she denied feeling suicidal or homicidal. Her aunt feels that the medications may look into because her behavior has changed. Carrie acknowledges all of the above as being accurate. She recently has been evicted from her apartment and she and her boyfriend need to find a new place to live. They were evicted because family members came to live with them even when the family members were asked not to. Recently angry at her family members. There are financial issues which are also causing her distress. Her psychiatric history is very confusing. She claims that she has been hospitalized nearly 20 times with multiple hospitalizations at this unit itself. However going back 2 years, there are no records of her being in this hospital. Staff reports that they have seen her here before. I'm unable to find records that would corroborate her story. She says that she does have a psychiatrist that treats her on outpatient basis but has not seen a psychiatrist in over a year. There is an access problem as the patient weighs over 400 pounds and transportation to appointments is problematic so she may not be seeing either her primary care doctor or psychiatrist as often as she would like. However she denies feeling suicidal or homicidal. She denies feeling depressed. She does feel that she is having more seizures than she has had in the past. She feels overwhelmed at times but generally has been hedonic capacity and feels as though she is thinking clearly. She specifically denies needing to be in the hospital and would like to go home. Her medications at this time include buspirone 15 mg 3 times a day, Celexa 25 mg daily and when necessary trazodone and lorazepam. Social history: Patient is currently under guardianship to her aunt. She has a rn case manager hospice. However her rn case manager hospice, the one that filed the affidavit, is relatively new to her case and is unfamiliar with her pattern of interpersonal interactions. Mental Status Exam: Patient is a morbidly obese woman who is wheeled to meetings and interviews in a wheelchair. She is nonambulatory. Eye contact is good. Speech is of normal rate and rhythm and easily understood. Information provided is internally consistent and consistent with that in the chart. She is believed to be a reliable informant to the best of her ability. Appearance: hygiene is fair; no gross neurological deficits., AIMS=0 Speech: Speech is of normal rate and rhythm and easily understood. Thought processes: Thought processes are abstract. Judgment is adequate for safety. Associations: intact Psychotic processes: There is no indication of guarding or paranoia. There is no attention to the internal stimuli. Auditory and visual hallucinations are denied. Judgment: Insight is fair. Problem solving skills are adequate for safety. Orientation: The patient is oriented to person, place time and situation. Memory: no deficits noted in immediate, intermediate, or remote spheres. Attention: The patient is alert and interpersonally engaged. Language: Verbalizations are coherent. Fund of knowledge: Fund of knowledge is adequate. Affect/Mood: Affect is consistent with a euthymic mood. Denied suicidal ideation Affective range is appropriate. Psychosis: perception unimpaired except through cognitive distortion; reality testing intact. The patient is requesting to be discharged to go home. Review of her chart, there is no indication that she is at imminent risk to self or others. She would likely benefit from having a medication review but the need is not urgent. She was offered to remain in the hospital and have her medications adjusted while she was here. However she refused and insisted that she be able to go home and take care of her dog and take care of the acute stressor that is causing her difficulty in the form of finding a new residence. Patient will be discharged in regular status if she is able to find transportation to her home. Outpatient psychiatry note of 03/08/2020 Assesment & Plan Assessment: Samantha is at her psychiatric baseline. Plan: -Continue citalopram 25 mg daily. -Continue BuSpar 15 mg 3 times daily. -Continue trazodone 100 mg at night. -Continue Lorazepam 1 mg twice daily and 0.5 mg daily as needed for anxiety. -I spent 4 minutes providing smoking cessation counseling. I gauged her desire to quit and she is not ready to quit. I spoke with her about the health risks of smoking along with her history of smoking. -Continue community support services. -Continue psychotherapy. -She will follow-up with me in 2 months. Outpatient mental health note of 03/23/2020 Charity reported, I'm getting dressed so I can go with my friend to [place]. She is coming to pick me up. I thought I could get dressed while we talk. I've been really emotional lately. I think it will be good to get away from my mom for a bit. We are together all of the time . Meds NPU Home Medications Medication Instructions Recorded Confirmed Last Taken Type albuterol sulfate 90 mcg/actuation 2 puff INHALATION Q4H PRN gm 08/11/19 05/22/20 Unknown History aerosol inhaler fesoterodine 4 mg tablet,extended 4 mg PO BEDTIME tab 08/11/19 05/22/20 05/21/20 History release 24 hr fluticasone propionate 50 2 spray INTRANASAL DAILY 08/11/19 05/22/20 02/08/20 History mcg/actuation nasal spray,suspension furosemide 20 mg tablet 20 mg PO QAM PRN 08/11/19 05/22/20 Unknown History lisinopril 20 mg tablet 20 mg PO QPM 08/11/19 05/22/20 05/21/20 History loratadine 10 mg tablet 10 mg PO QPM 08/11/19 05/22/20 05/21/20 History metoprolol succinate 100 mg 100 mg PO DAILY 08/11/19 05/22/20 05/21/20 History capsule sprinkle, ext. release 24 hr multivitamin 1 tab PO QAM 08/11/19 05/22/20 05/21/20 History omeprazole 40 mg capsule,delayed 40 mg PO DAILY 08/11/19 05/22/20 05/21/20 History release potassium chloride 10 mEq See Rx Instructions .ROUTE .COMPLEX 08/11/19 05/22/20 Unknown History capsule,extended release tiagabine 4 mg tablet 4 mg PO BID 08/11/19 05/22/20 05/21/20 History tranexamic acid 650 mg tablet 650 mg PO PRN tab 08/11/19 05/22/20 Unknown History naproxen 500 mg tablet 750 mg PO BID PRN tab 09/24/19 05/22/20 Unknown History citalopram 10 mg tablet 5 mg PO DAILY #15 tab 01/11/20 05/22/20 02/08/20 Rx citalopram 20 mg tablet 20 mg PO DAILY #30 tab 01/11/20 05/22/20 02/08/20 Rx ibuprofen 600 mg PO Q8H PRN 02/09/20 05/22/20 05/22/20 16:00 History nystatin [Nystop] See Rx Instructions .ROUTE .COMPLEX 02/09/20 05/22/20 Unknown History ondansetron 4 mg PO Q6H PRN #14 tab 02/09/20 05/22/20 Unknown Rx buspirone 15 mg tablet 15 mg PO TID #90 tab 03/08/20 05/22/20 05/21/20 Rx lorazepam 1 mg tablet See Rx Instructions PO .COMPLEX 03/08/20 05/22/20 05/22/20 16:00 Rx #75 tab nitrofurantoin 100 mg PO BID #60 cap 04/25/20 05/22/20 05/21/20 Rx monohydrate/macrocrystals 100 mg capsule znqkarvsjxrcs-equb-umhofjwrby 2 tab PO PRN 05/22/20 05/22/20 05/22/20 16:00 History [Midol Complete] fluticasone propionate [Flovent 2 puff INHALATION BID PRN 05/22/20 05/22/20 Unknown History HFA] levothyroxine 75 mcg PO DAILY 05/22/20 05/22/20 05/21/20 History magnesium oxide 400 mg PO QPM 05/22/20 05/22/20 05/21/20 History metformin 500 mg PO BID 05/22/20 05/22/20 05/21/20 History nystatin 1 applic TOPICAL TID 05/22/20 05/22/20 Unknown History trazodone 100 mg PO BEDTIME 05/22/20 05/22/20 05/21/20 History Allergies Allergy/AdvReac Type Severity Reaction Status Date / Time trimethoprim Allergy Severe Unknown Verified 05/22/20 16:59 adhesive Allergy Unknown Unknown Verified 05/22/20 16:59 latex Allergy Unknown Unknown Verified 05/22/20 16:59 Sulfa (Sulfonamide Allergy Unknown Unknown Verified 05/22/20 16:59 Antibiotics) tramadol Allergy Unknown Unknown Verified 05/22/20 16:59 PFSH NPU PFSH: Medical History Breakthrough seizure Cigarette smoker Flank pain with history of urolithiasis Gastritis History of kidney stones Major depression, recurrent, full remission Migraine Mild intellectual disability Morbid obesity Recurrent UTI Sleep apnea Surgical History Ganglion cyst of dorsum of left wrist History of carpal tunnel surgery Hx of tympanostomy bilateral Left elbow fracture Repair of left elbow fracture/olecranon process Family History Other Unknown family medical history Social History Smoking and tobacco status: current every day smoker Alcohol intake: current Alcohol intake frequency: holidays/special occasions only Lives independently: No Household members: family Marital status: Single Current occupational status: disabled Current gender identity: Female Mental Status Exam MSE Comments: This is a morbidly obese white female with limited dress, adequate grooming. No abnormal movements except for mild psychomotor retardation. Cooperative with exam in mild distress. Speech was normal rate and volume. Mood described as frustrated, affect congruent. Thought process organized. Thought content: Patient endorsed occasional suicidal and homicidal ideation, there were no delusions reported or noted, she denied any auditory or visual hallucinations. Attention and concentration appeared intact and memory appeared mostly reliable but none were formally tested. She is alert and oriented x3. Insight and judgment. Fair, impulse control is impaired. Vitals/I&O/Wt Last Vital Signs Temp 975 F H 05/23/20 06:00 Pulse 71 05/23/20 10:10 Resp 18 05/23/20 10:10 BP 142/98 05/23/20 06:00 Pulse Ox 98 05/23/20 10:10 Weight last 48 hrs Weight 188.604 kg Data NPU : 05/22/20 17:18 05/22/20 17:18 A&P Assessment and plan (1) Suicidal ideation: Status: Acute (2) Homicidal ideation: Status: Acute (3) Major depression, recurrent, full remission: Status: Acute (4) Cigarette smoker: Status: Acute (5) Mild intellectual disability: Status: Chronic (6) Morbid obesity: Status: Chronic Additional A&P Information This is a 35-year-old white female with a long history of intellectual disability, depression and problems interacting with her mother who presents after another conflict reporting lethality and endorsing that it will not be safe for her to return to the place where her mother lives. 1. Continue current medication. We will consider a mood stabilizer as indicated. 2. Encourage individual, group and milieu therapy. 3. Continue every 15 minute checks for safety. 4. We will work with the treatment team for a possible alternative living arrangement. Involuntary Hold Information 96 Hour Hold: 96 Hour Involuntary Admission: Yes Attestations NPU Medical Necessity Statement*: Inpatient hospitalization the medically necessary of the clinically appropriate intervention at this time. We will monitor medications make changes as indicated. She will be in the hospital for over 2 midnights. Likely length of stay 4 to 6 days. Coding Level of Care Code Acute Bale Piler for g Fwd Diagnoses Suicidal ideation R45.851 Homicidal ideation R45.850 Major depression, recurrent, full remission F33.42 Cigarette smoker F17.210 Mild intellectual disability F70 Morbid obesity E66.01
[2020-05-23 16:39] LABS: Glucose Point of Care 101 mg/dL (70-110)
[2020-05-23] MEDS: lisinopril 20 mg Tablet PO (17:21)
[2020-05-23] MEDS: magnesium oxide 400 mg tablet PO (17:21)
[2020-05-23] MEDS: loratadine 10 mg Tablet PO (17:21)
[2020-05-23 19:30] VITALS: PULSE 82; RESP 18; O2SAT 98
[2020-05-23 20:30] LABS: Glucose Point of Care 104 mg/dL (70-110)
[2020-05-23] MEDS: trazodone 100 mg Tablet PO (21:40)
[2020-05-23] MEDS: nystatin cream 30 gm 1 APPLIC TOPICAL (21:41)
[2020-05-23] MEDS: ibuprofen 600 mg Tablet PO (21:45)
[2020-05-23] MEDS: LORazepam 0.5 mg Tablet PO (21:48)
[2020-05-23 22:00] VITALS: BP 131/86; PULSE 79; RESP 18; TEMP 36.3; O2SAT 97
[2020-05-23 23:26] VITALS: PULSE 88; RESP 19; O2SAT 97
--- NOTE | 2020-05-24 02:13 | PC.NURSE ---
PM ASSESSMENT PT ..BP 131/86, MT 79, RR 18.BLOOD GLUCOSE IS 104. PT IS JOVIAL ON ASSESSMENT. DENIES HI/SI. DENIES AH/VH. PT HAS BEEN CHATTING WITH STAFF AND OTHER PATIENTS. SHE IS WITH 1:1 AT THE BEDSIDE SHE SLEEPS WITH HER CPAP. PT IS RESTING. NO NOTICEABLE S/S OF DISTRESS AT THIS TIME. WILL CONTINUE TO MONITOR PT.
[2020-05-24 06:00] VITALS: BP 116/70; PULSE 81; RESP 18; TEMP 36.7; O2SAT 94
[2020-05-24 06:53] LABS: Glucose Point of Care 97 mg/dL (70-110)
[2020-05-24] MEDS: multivitamin therapeutic Tablet 1 TAB PO (09:09)
[2020-05-24] MEDS: levothyroxine 150 mcg Tablet 75 MCG PO (09:09)
[2020-05-24] MEDS: metoprolol succinate ER (24 HR) 100 mg Tablet PO (09:09)
[2020-05-24] MEDS: citalopram 20 mg Tablet PO (09:09)
[2020-05-24] MEDS: citalopram 20 mg Tablet 5 MG PO (09:10)
[2020-05-24] MEDS: nitrofurantoin SR (BID) 100 mg Capsule PO ×2 (09:10→21:45)
[2020-05-24] MEDS: pantoprazole DR 40 mg Tablet PO (09:10)
[2020-05-24] MEDS: potassium chloride ER 10 mEq Tablet PO (09:10)
[2020-05-24] MEDS: albuterol 8 gm MDI 2 PUFF INHALATION (09:22)
[2020-05-24 09:25] VITALS: PULSE 84; RESP 16; O2SAT 97
[2020-05-24 11:08] LABS: Glucose Point of Care 109 mg/dL (70-110)
[2020-05-24 13:57] LABS: SARS Covid-2 Antigen Negative (Negative)
[2020-05-24 14:00] VITALS: BP 106/89; PULSE 85; RESP 18; TEMP 36.9; O2SAT 95
[2020-05-24] MEDS: LORazepam 0.5 mg Tablet PO (14:35)
--- NOTE | 2020-05-24 14:37 | PC.NURSE ---
refused scheduled Nystatin powder and cream, pt stated I don't need any of that right now
--- NOTE | 2020-05-24 15:42 | P.PN_ITS ---
Subjective NPU Subjective: Interval history: Charity presented today reporting that things are going well and that she was excited about the fact that she got [facility]. She reports that the medications have been working fine and she feels optimistic about how things are going in general. She is eating and sleeping well and looking forward to possible discharge tomorrow if we can get the okay from the head person at the program. Mental Status Exam MSE Comments: This is a morbidly obese white female with limited dress, adequate grooming. No abnormal movements except for mild psychomotor retardation. Cooperative with exam in no acute distress. Speech was normal rate and volume. Mood described as better, affect congruent. Thought process organized. Thought content: Patient denied occasional suicidal and homicidal ideation, there were no delusions reported or noted, she denied any auditory or visual hallucinations. Attention and concentration appeared intact and memory appeared mostly reliable but none were formally tested. She is alert and oriented x3. Insight and judgment fair, impulse control is improving. Vitals/I&O/Wt Last Vital Signs Temp 98.4 F 05/24/20 14:00 Pulse 85 05/24/20 14:00 Resp 18 05/24/20 14:00 BP 106/89 05/24/20 14:00 Pulse Ox 95 05/24/20 14:00 Data NPU : 05/22/20 17:18 05/22/20 17:18 A&P Additional A&P Information (1) Suicidal ideation: (2) Homicidal ideation: (3) Major depression, recurrent, full remission: (4) Cigarette smoker: (5) Mild intellectual disability: (6) Morbid obesity: Additional A&P Information This is a 35-year-old white female with a long history of intellectual disability, depression and problems interacting with her mother who presents after another conflict reporting lethality and endorsing that it will not be safe for her to return to the place where her mother lives. 1. Continue current medication. 2. Encourage individual, group and milieu therapy. 3. Continue every 15 minute checks for safety. 4. We will plan for discharge tomorrow to the lodges or whenever they accept her. Involuntary Hold Information 96 Hour Hold: 96 Hour Involuntary Admission: Yes Attestations NPU Medical Necessity Statement*: Inpatient hospitalization the medically necessary of the clinically appropriate intervention at this time. We will monitor medications make changes as indicated. Likely length of stay 1-3 days. Coding Level of Care Code Acute Emblem Fuser Tender for Shahnazg Richard
[2020-05-24 16:45] LABS: Glucose Point of Care 245 mg/dL (70-110)
--- NOTE | 2020-05-24 17:25 | PC.RESP ---
Smoking Cessation information sent to patient.
[2020-05-24 20:18] LABS: Glucose Point of Care 109 mg/dL (70-110)
[2020-05-24 21:10] VITALS: BP 150/84; PULSE 72; RESP 18; TEMP 36.9; O2SAT 99
[2020-05-24] MEDS: lisinopril 20 mg Tablet PO (21:44)
[2020-05-24] MEDS: magnesium oxide 400 mg tablet PO (21:45)
[2020-05-24] MEDS: ibuprofen 600 mg Tablet PO (21:45)
[2020-05-24] MEDS: trazodone 100 mg Tablet PO (21:45)
[2020-05-24] MEDS: loratadine 10 mg Tablet PO (21:45)
[2020-05-24] MEDS: LORazepam 1 mg Tablet PO (21:45)
[2020-05-24] MEDS: FESOTERODINE 4 MG 4 EACH PO (21:47)
[2020-05-24] MEDS: nystatin powder 15 gm Btl 1 APPLIC TOPICAL (21:47)
[2020-05-24 22:50] VITALS: PULSE 84; RESP 20; O2SAT 95
[2020-05-25] MEDS: LORazepam 1 mg Tablet PO ×2 (06:24→19:41)
[2020-05-25 07:22] LABS: Glucose Point of Care 102 mg/dL (70-110)
[2020-05-25] MEDS: pantoprazole DR 40 mg Tablet PO (09:25)
[2020-05-25] MEDS: nitrofurantoin SR (BID) 100 mg Capsule PO ×2 (09:26→19:40)
[2020-05-25] MEDS: levothyroxine 150 mcg Tablet 75 MCG PO (09:26)
[2020-05-25] MEDS: potassium chloride ER 10 mEq Tablet PO (09:26)
[2020-05-25] MEDS: multivitamin therapeutic Tablet 1 TAB PO (09:27)
[2020-05-25] MEDS: citalopram 20 mg Tablet PO (09:27)
[2020-05-25] MEDS: citalopram 20 mg Tablet 5 MG PO (09:27)
[2020-05-25] MEDS: metoprolol succinate ER (24 HR) 100 mg Tablet PO (09:30)
--- NOTE | 2020-05-25 09:31 | PC.NURSE ---
REFUSED SCHEDULED NYSTATIN POWDER, CREAM, AND NASAL SPRAY THIS MORNING
[2020-05-25 11:07] LABS: Glucose Point of Care 92 mg/dL (70-110)
[2020-05-25 12:17] VITALS: PULSE 75; RESP 18; O2SAT 97
[2020-05-25] MEDS: albuterol 8 gm MDI 2 PUFF INHALATION (12:17)
[2020-05-25 13:04] VITALS: BP 129/83; PULSE 78; RESP 18; TEMP 36.4; O2SAT 98
[2020-05-25 14:04] LABS: Quantiferon Mitogen 9.17 IU/mL; Quantiferon Nil 0.12 IU/mL; Quantiferon Plus TB2 0.15 IU/mL; Quantiferon TB Gold POSITIVE (NEGATIVE)
[2020-05-25] MEDS: LORazepam 0.5 mg Tablet PO (14:55)
[2020-05-25] MEDS: nystatin powder 15 gm Btl 1 APPLIC TOPICAL ×2 (14:55→19:42)
[2020-05-25 16:19] LABS: Glucose Point of Care 113 mg/dL (70-110)
[2020-05-25 19:33] LABS: Glucose Point of Care 118 mg/dL (70-110)
[2020-05-25] MEDS: trazodone 100 mg Tablet PO (19:40)
[2020-05-25] MEDS: lisinopril 20 mg Tablet PO (19:40)
[2020-05-25] MEDS: loratadine 10 mg Tablet PO (19:40)
[2020-05-25] MEDS: magnesium oxide 400 mg tablet PO (19:41)
[2020-05-25] MEDS: FESOTERODINE 4 MG 4 EACH PO (19:42)
[2020-05-25] MEDS: nystatin cream 30 gm 1 APPLIC TOPICAL (19:43)
--- NOTE | 2020-05-25 19:45 | P.PN_ITS ---
Subjective NPU Subjective: Interval history: Charity presents today reporting that she is sad that the program is unable to take her today. She was also surprised by the positive test and we explained she would see one of the medical doctors/hospitalist to decide what to do at this point. She continues being in a positive mood and we have asked that there would be no movement till Friday secondary to the holiday as far as her placement. Mental Status Exam MSE Comments: This is a morbidly obese white female with limited dress, adequate grooming. No abnormal movements except for mild psychomotor retardation. Cooperative with exam in no acute distress. Speech was normal rate and volume. Mood described as a little down, affect congruent. Thought process organized. Thought content: Patient denied occasional suicidal and homicidal ideation, there were no delusions reported or noted, she denied any auditory or visual hallucinations. Attention and concentration appeared intact and memory appeared mostly reliable but none were formally tested. She is alert and oriented x3. Insight and judgment fair, impulse control is improving. Vitals/I&O/Wt Last Vital Signs Temp 97.3 F L 05/25/20 21:57 Pulse 73 05/25/20 21:57 Resp 18 05/25/20 21:57 BP 162/89 05/25/20 21:57 Pulse Ox 96 05/25/20 21:57 Data NPU : 05/22/20 17:18 05/26/20 13:36 A&P Additional A&P Information (1) Suicidal ideation: (2) Homicidal ideation: (3) Major depression, recurrent, full remission: (4) Cigarette smoker: (5) Mild intellectual disability: (6) Morbid obesity: Additional A&P Information This is a 35-year-old white female with a long history of intellectual disability, depression and problems interacting with her mother who presents aft er another conflict reporting lethality and endorsing that it will not be safe for her to return to the place where her mother lives. 1. Continue current medication. 2. Encourage individual, group and milieu therapy. 3. Continue every 15 minute checks for safety. 4. We will plan for discharge tomorrow to the lodges or whenever they accept her. Involuntary Hold Information 96 Hour Hold: 96 Hour Involuntary Admission: Yes Attestations NPU Medical Necessity Statement*: Inpatient hospitalization the medically necessary of the clinically appropriate intervention at this time. We will monitor medications make changes as indicated. Likely length of stay 2-4 days. Coding Level of Care Code Acute Timber Inspector for Kleber Ramos
--- NOTE | 2020-05-25 20:51 | PC.NURSE ---
PM Assessment Pt is animated and interacts with staff. She is cooperative but seems upset by her recent lab result showing a positive TB gold serology test. She is awaiting guardianship placement. Pt is not able to wear a mask, is a 1:1 with her CPAP at night. Pt showered at the beginning of shift, nystatin ointment applied to under her pannis. PT lung sounds are dimished, heart sounds are normal, glucose levels today are 113 and 118. Pt denies HI/SI, Pt confirms hearing sounds like a horse and a baby crying . Pt denies VH. Pain is chronic but managed. She says that her baseline is about 5 on her back and joints on a 1-10 pain scale. Pt is resting in her bed.
[2020-05-25 21:23] VITALS: PULSE 88; RESP 17; O2SAT 96
--- NOTE | 2020-05-25 21:34 | P.CONIM_ITS ---
Providers/Reason For Consult Consulting Physican/Specialty*: Hospitalist service Reason for Consult*: Latent tuberculosis Attending Physician: Pasha Lynne MD Primary Care Provider: Selma Robles MD History of Present Illness History of Present Illness Charity Blake is a 35 year old female who was admitted to neuropsychiatric unit for suicidal ideation. She has had multiple admissions due to same concern, currently she is on 96-hour hold. Hospitalist service was requested to advise after positive QuantiFERON tuberculosis test. Patient is stating that she was probably exposed to her grandfather who had tuberculosis he 2 years ago and currently she is living with her mother and grandmother, her grandmother has alpha galactosidase deficiency but no diagnosis of tuberculosis has been made yet. Ms. Blake is endorsing night sweats, chronic cough, back pain but denying fever active chest pain. She does have history of ventral hernia for which she will follow up with general surgery. She has history of neuropathy as well. She smokes about 1 pack/day does not drink alcohol. No previous history of liver disease. Review of Systems Const: Reports: chills, body aches, change in appetite, change in weight, fatigue, malaise and night sweats; Denies: fever(s) Eyes: Denies: change in vision ENMT: Denies: throat pain Card: Denies: chest pain Resp: Reports: non-productive cough; Denies: dyspnea GI: Denies: abdominal pain : Denies: flank pain Musc: Reports: back pain; Denies: neck pain Skin/Breast: Reports: new lesions, dry skin and nail changes; Denies: rash Neuro: Denies: headache(s) Psych: Reports: depression and mood swings; Denies: anxiety, panic attacks or hopelessness Endo: Denies: polyuria Liang/Lymph: Denies: easy bruising All/Imm: Denies: urticaria Meds/Allergies Home Medications and Allergies Home Medications Medication Instructions Recorded Confirmed Last Taken Type albuterol sulfate 90 mcg/actuation 2 puff INHALATION Q4H PRN gm 08/11/19 05/22/20 Unknown History aerosol inhaler fesoterodine 4 mg tablet,extended 4 mg PO BEDTIME tab 08/11/19 05/22/20 05/21/20 History release 24 hr fluticasone propionate 50 2 spray INTRANASAL DAILY 0305/22/20 02/08/20 History mcg/actuation nasal spray,suspension furosemide 20 mg tablet 20 mg PO QAM PRN 08/11/19 05/22/20 Unknown History lisinopril 20 mg tablet 20 mg PO QPM 08/11/19 05/22/20 05/21/20 History loratadine 10 mg tablet 10 mg PO QPM 08/11/19 05/22/20 05/21/20 History metoprolol succinate 100 mg 100 mg PO DAILY 08/11/19 05/22/20 05/21/20 History capsule sprinkle, ext. release 24 hr multivitamin 1 tab PO QAM 08/11/19 05/22/20 05/21/20 History omeprazole 40 mg capsule,delayed 40 mg PO DAILY 08/11/19 05/22/20 05/21/20 History release potassium chloride 10 mEq See Rx Instructions .ROUTE .COMPLEX 08/11/19 05/22/20 Unknown History capsule,extended release tiagabine 4 mg tablet 4 mg PO BID 08/11/19 05/22/20 05/21/20 History tranexamic acid 650 mg tablet 650 mg PO PRN tab 08/11/19 05/22/20 Unknown History naproxen 500 mg tablet 750 mg PO BID PRN tab 09/24/19 05/22/20 Unknown History citalopram 10 mg tablet 5 mg PO DAILY #15 tab 01/11/20 05/22/20 02/08/20 Rx citalopram 20 mg tablet 20 mg PO DAILY #30 tab 01/11/20 05/22/20 02/08/20 Rx ibuprofen 600 mg PO Q8H PRN 02/09/20 05/22/20 05/22/20 16:00 History nystatin [Nystop] See Rx Instructions .ROUTE .COMPLEX 02/09/20 05/22/20 Unknown History ondansetron 4 mg PO Q6H PRN #14 tab 02/09/20 05/22/20 Unknown Rx buspirone 15 mg tablet 15 mg PO TID #90 tab 03/08/20 05/22/20 05/21/20 Rx lorazepam 1 mg tablet See Rx Instructions PO .COMPLEX 03/08/20 05/22/20 05/22/20 16:00 Rx #75 tab nitrofurantoin 100 mg PO BID #60 cap 04/25/20 05/22/20 05/21/20 Rx monohydrate/macrocrystals 100 mg capsule [id number]-[id number] 2 tab PO PRN 05/22/20 05/22/20 05/22/20 16:00 History [Midol Complete] fluticasone propionate [Flovent 2 puff INHALATION BID PRN 05/22/20 05/22/20 U nknown History HFA] levothyroxine 75 mcg PO DAILY 05/22/20 05/22/20 05/21/20 History magnesium oxide 400 mg PO QPM 05/22/20 05/22/20 05/21/20 History metformin 500 mg PO BID 05/22/20 05/22/20 05/21/20 History nystatin 1 applic TOPICAL TID 05/22/20 05/22/20 Unknown History trazodone 100 mg PO BEDTIME 05/22/20 05/22/20 05/21/20 History lorazepam 05/24/20 05/24/20 Unknown History Allergies Allergy/AdvReac Type Severity Reaction Status Date / Time trimethoprim Allergy Severe Unknown Verified 05/22/20 16:59 adhesive Allergy Unknown Unknown Verified 05/22/20 16:59 latex Allergy Unknown Unknown Verified 05/22/20 16:59 Sulfa (Sulfonamide Allergy Unknown Unknown Verified 05/22/20 16:59 Antibiotics) tramadol Allergy Unknown Unknown Verified 05/22/20 16:59 Current Medications Current Medications Generic Name Dose Route Start Last Admin Trade Name Freq PRN Reason Stop Dose Admin Albuterol Sulfate 2 puff 05/22/20 20:50 05/25/20 12:17 Albuterol 8 Gm Mdi INHALATION 2 puff Q4H PRN Administration Shortness Of Breath Buspirone HCl 15 mg 05/22/20 21:00 05/25/20 19:40 Buspirone 15 Mg Tablet PO 15 mg TID NAY Administration Citalopram Hydrobromide 20 mg 05/23/20 09:00 05/25/20 09:27 Citalopram 20 Mg Tablet PO 20 mg DAILY NAY Administration Citalopram Hydrobromide 5 mg 05/23/20 09:00 05/25/20 09:27 Citalopram 20 Mg Tablet PO 5 mg DAILY NAY Administration Fluticasone Propionate 2 spray 05/23/20 09:00 05/25/20 09:25 Fluticasone Nasal [place] 16gm Btl INTRANASAL Not Given DAILY NAY Fluticasone Propionate 2 puff 05/22/20 20:50 05/25/20 12:17 Fluticasone 110 Mcg Inhaler 12gm INHALATION 2 puff BID PRN Administration Shortness Of Breath Ibuprofen 600 mg 05/22/20 20:50 05/24/20 21:45 Ibuprofen 600 Mg Tablet PO 600 mg Q8H PRN Administration Pain Insulin Aspart 0 unit 05/23/20 08:00 05/25/20 19:41 Insulin Aspart 100 Unit/1 Ml SUBCUT Not Given WM&BEDTIME NAY Protocol Levothyroxine Sodium 75 mcg 05/23/20 09:00 05/25/20 09:26 Levothyroxine 150 Mcg Tablet PO 75 mcg DAILY NAY Administration Lisinopril 20 mg 05/24/20 21:00 05/25/20 19:40 Lisinopril 20 Mg Tablet PO 20 mg BEDTIME NAY Administration Loratadine 10 mg 05/24/20 21:00 05/25/20 19:40 Loratadine 10 Mg Tablet PO 10 mg BEDTIME NAY Administration Lorazepam 1 mg 05/24/20 21:00 05/25/20 19:41 Lorazepam 1 Mg Tablet PO 1 mg 07,2100 NAY Administration Lorazepam 0.5 mg 05/24/20 14:00 05/25/20 14:55 Lorazepam 0.5 Mg Tablet PO 0.5 mg DAILY@1400 NAY Administration Magnesium Oxide 400 mg 05/24/20 21:00 05/25/20 19:41 Magnesium Oxide 400 Mg Tablet PO 400 mg BEDTIME NAY Administration Metoprolol Succinate 100 mg 05/23/20 09:00 05/25/20 09:30 Metoprolol Succinate Er (24 Hr) 100 Mg Tablet PO 100 mg DAILY NAY Administration Multivitamins Therapeutic 1 tab 05/24/20 09:00 05/25/20 09:27 Multivitamin Therapeutic Tablet PO 1 tab DAILY NAY Administration Nitrofurantoin Macrocrystals 100 mg 05/24/20 21:00 05/25/20 19:40 Nitrofurantoin Sr (Bid) 100 Mg Capsule PO 100 mg 0900,2100 NAY Administration Non-Formulary Medication 4 mg 05/23/20 09:00 05/25/20 17:03 Tiagabine PO 4 mg BID NAY Administration Non-Formulary Medication 4 mg 05/24/20 21:00 05/25/20 19:42 Fesoterodine [Toviaz] PO 4 mg BEDTIME NAY Administration Nystatin 1 applic 05/22/20 21:00 05/25/20 19:43 Nystatin Cream 30 Gm TOPICAL 1 applic TID NAY Administration Nystatin 1 applic 05/22/20 21:00 05/25/20 19:42 Nystatin Powder 15 Gm Btl TOPICAL 1 applic TID NAY Administration Pantoprazole Sodium 40 mg 05/23/20 09:00 05/25/20 09:[address] 40 Mg Tablet PO 40 mg DAILY NAY Administration Potassium Chloride 10 meq 05/24/20 09:00 05/25/20 09:26 Potassium Chloride Er 10 Meq Tablet PO 10 meq DAILY NAY Administration Trazodone HCl 100 mg 05/22/20 21:00 05/25/20 19:40 Trazodone 100 Mg Tablet PO 100 mg BEDTIME NAY Administration PFSH Acute PFSH: Medical History Breakthrough seizure Cigarette smoker Flank pain with history of urolithiasis Gastritis History of kidney stones Major depression, recurrent, full remission Migraine Mild intellectual disability Morbid obesity Recurrent UTI Sleep apnea Surgical History Ganglion cyst of dorsum of left wrist History of carpal tunnel surgery Hx of tympanostomy bilateral Left elbow fracture Repair of left elbow fracture/olecranon process Family History (Updated 05/25/20 @ 23:12 by Azul Iqbal MD) Grandfather Tuberculosis Other Alpha galactosidase deficiency Social History Smoking and tobacco status: current every day smoker Alcohol intake: current Alcohol intake frequency: holidays/special occasions only Lives independently: No Household members: family Marital status: Single Current occupational status: disabled Current gender identity: Female Female Reproductive History: Date of last menstrual period: 03/26/20 Vitals/I&O/Wt Last Vital Signs Temp 97.6 F 05/25/20 13:04 Pulse 88 05/25/20 21:23 Resp 18 05/25/20 13:04 BP 129/83 05/25/20 13:04 Pulse Ox 96 05/25/20 21:23 Physical Exam Narrative: EXAM NARRATIVE: Morbidly obese female who was resting in her bed without any acute discomfort She did not endorse any chest pain shortness of breath or fever She is endorsing neck pain, back pain which is chronic Right digit bruising and pain which she is attributing to recent trauma S1, S2 no murmur appreciated Bilateral breath sounds without adventitious rhonchi or crackles She does get dry cough on and off Distended abdomen with obesity ventral hernia Lower symmetry no edema Awake alert oriented x3 GCS 15 Patient cooperated very well during the interview and examination A&P Assessment and plan (1) 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: Positive interferon gamma release assay I do not see any signs of active disease, pulmonary nodule or calcified nodules on previous x-ray Her chances of becoming active with this infection are low however I would request sputum sample with a chest x-ray in the morning, 3 sputum sample for AFB smear will be needed ideally debt counselor for 3 days if not then at least 8 hours apart Reverse isolation Healthcare workers should use N95 mask I would start her on isoniazid and vitamin B6, not AST ALT/transaminases abnormality noted on previous blood work, will get CMP in the morning, duration of this treatment would be at least 9 months Of note, there is family history of alpha galactosidase deficiency which is excellent disease if her liver enzymes become abnormal x2 from baseline would recommend changing her medication Status: Acute Consult Attestations Medical Necessity Statement: Management as per neuropsychiatric unit Time Spent in Patient Care: 30mins Coding Level of Care Code Acute Principal Embedded Software Engineer for [facility] Diagnoses 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
[2020-05-25 21:57] VITALS: BP 162/89; PULSE 73; RESP 18; TEMP 36.3; O2SAT 96
[2020-05-25] MEDS: pyridoxine 50 mg Tablet PO (23:01)
--- NOTE | 2020-05-26 00:13 | PC.NURSE ---
Stock Tracer notification called the powerhouse electrician apprentice Kerri who came to the unit. Pt has latent positive TB result. Consult with Dr. Azul Iqbal initiated. He came to the unit. Began Isonizide and b6 for treatment. Order placed for CXR at 0900. He placed the pt on isolation precautions. This was referred to infection control. Contacted Pollo, who advised nurse to contact Dr. Pasha Lynne due to the nature of this infection for suggestions on care. Dr Lynne contacted. He requested nurse to contact Dr. Iqbal and ask him to call him. This was completed. Pollo notified of actions. Awaiting decision on patient care to be ordered. Will continue to monitor pt. Pt is currently on 1:1 due to cpap use. This unit is not appropriate for reverse isolation per Pollo. Diagnostic Assistant notified of all contacts made up to this point.
[2020-05-26 06:00] VITALS: BP 129/78; PULSE 78; RESP 18; TEMP 36.3; O2SAT 99
[2020-05-26] MEDS: LORazepam 1 mg Tablet PO ×2 (06:35→20:49)
[2020-05-26 06:49] LABS: Glucose Point of Care 114 mg/dL (70-110)
--- NOTE | 2020-05-26 09:00 | XRR_ITS ---
PROCEDURE INFORMATION: Exam: XR Chest, 1 View Exam date and time: 05/26/2020 9:09 AM Age: 35 years old Clinical indication: Screening exam; Other screening; Additional info: John Paul TECHNIQUE: Imaging protocol: XR of the chest Views: Frontal supine view of the chest. COMPARISON: CR Chest 1 [place] [id number] 01/31/2018 12:14 PM FINDINGS: Lungs: Right lower lung zone calcified granuloma. The lungs are otherwise peripherally clear bilaterally. The pulmonary vasculature is normal. Pleural space: No pleural effusion. No pneumothorax. Heart/Mediastinum: The heart is normal in size and contour. Mediastinum: Stable. Bones/joints: Stable. XR/XR chest 1V portable [id number] IMPRESSION: No acute cardiopulmonary abnormality identified.
[2020-05-26] MEDS: metoprolol succinate ER (24 HR) 100 mg Tablet PO (09:55)
[2020-05-26] MEDS: pyridoxine 50 mg Tablet PO (09:55)
[2020-05-26] MEDS: nitrofurantoin SR (BID) 100 mg Capsule PO ×2 (09:55→20:48)
[2020-05-26] MEDS: pantoprazole DR 40 mg Tablet PO (09:55)
[2020-05-26] MEDS: potassium chloride ER 10 mEq Tablet PO (09:55)
[2020-05-26] MEDS: citalopram 20 mg Tablet PO (09:56)
[2020-05-26] MEDS: nystatin powder 15 gm Btl 1 APPLIC TOPICAL ×3 (09:56→21:16)
[2020-05-26] MEDS: multivitamin therapeutic Tablet 1 TAB PO (09:56)
[2020-05-26] MEDS: citalopram 20 mg Tablet 5 MG PO (09:56)
[2020-05-26] MEDS: levothyroxine 150 mcg Tablet 75 MCG PO (09:57)
[2020-05-26 11:17] LABS: Glucose Point of Care 90 mg/dL (70-110)
[2020-05-26 14:00] VITALS: BP 125/79; PULSE 70; RESP 20; TEMP 36.4; O2SAT 96
[2020-05-26 14:18] LABS: Alanine Aminotransferase 15 U/L (0-33); Albumin Level 3.7 g/dL (3.5-5.2); Alkaline Phosphatase 72 IU/L (35-105); Blood Urea Nitrogen 13 mg/dL (6-20); Calcium 9.4 mg/dL (8.5-10.5); Carbon Dioxide 28 mmol/L (22-29); Chloride 104 mmol/L (98-107); Globulin 2.8 g/dL (1.3-4.6); Glomerular Filtration Rate 114.4 mL/min (90-130); Glucose 123 mg/dL (65-115); Osmolality Calculated 287 mOsm/kg (285-295); Sodium 138 mmol/L (136-145); Total Bilirubin 0.3 mg/dL (0.15-1.2); Total Protein 6.5 g/dL (6.6-8.7)
[2020-05-26 14:20] LABS: Aspartate Amino Transferase 18 U/L (0-32)
[2020-05-26] MEDS: LORazepam 0.5 mg Tablet PO (14:20)
--- NOTE | 2020-05-26 16:37 | P.PN_ITS ---
Subjective NPU Subjective: Interval history: Charity presented today feeling positive overall but wishing she would have been able to leave and be in her new place on [address]. Otherwise she denied any changes and reported being optimistic about us getting her into a facility next week. She talked a lot about wanting to be able to go outside but she understands that the current plan give her the best chance for success moving forward. We discussed how she has managed her 185 pound weight loss over the past year or so and with her blood sugars being normal agreed to resume a normal meal plan. Mental Status Exam MSE Comments: This is a morbidly obese white female with limited dress, adequate grooming. No abnormal movements except for mild psychomotor retardation. Cooperative with exam in no acute distress. Speech was normal rate and volume. Mood described as pretty good, affect congruent. Thought process organized. Thought content: Patient denied occasional suicidal and homicidal ideation, there were no delusions reported or noted, she denied any auditory or visual hallucinations. Attention and concentration appeared intact and memory appeared mostly reliable but none were formally tested. She is alert and oriented x3. Insight and judgment fair, impulse control is improving. Vitals/I&O/Wt Last Vital Signs Temp 97.6 F 05/26/20 14:00 Pulse 70 05/26/20 14:00 Resp 20 H 05/26/20 14:00 BP 125/79 05/26/20 14:00 Pulse Ox 96 05/26/20 14:00 Data NPU : 05/22/20 17:18 05/26/20 13:36 A&P Additional A&P Information (1) Suicidal ideation: (2) Homicidal ideation: (3) Major depression, recurrent, full remission: (4) Cigarette smoker: (5) Mild intellectual disability: (6) Morbid obesity: Additional A&P Information This is a 35-year-old white female with a long history of intellectual disability, depression and problems interacting with her mother who presents after another conflict reporting lethality and endorsing that it will not be safe for her to return to the place where her mother lives. 1. Continue current medication. 2. Encourage individual, group and milieu therapy. 3. Continue every 15 minute checks for safety. 4. We will plan for discharge tomorrow to the lodges or whenever they accept her. 5. We agreed to continue monitoring her blood sugars which have been without issue and return her to a normal diet unless that changes. Involuntary Hold Information 96 Hour Hold: 96 Hour Involuntary Admission: Yes Attestations NPU Medical Necessity Statement*: Inpatient hospitalization the medically necessary of the clinically appropriate intervention at this time. We will monitor medications make changes as indicated. Likely length of stay 2-4 days. Coding Level of Care Code Acute Electronic Assembler Group Leader for [facility]
[2020-05-26 16:41] LABS: Glucose Point of Care 107 mg/dL (70-110)
--- NOTE | 2020-05-26 18:05 | P.PN_ITS ---
Subjective Subjective: Interval history: No new clinical events overnight. Patient was ambulating wth out any respiratory distress. 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: Noted to have Latent TB Chest-xray - No acute abnormality Afebrile- no leukocytosis No evidence of active TB Started on INH - Plan for 9 months of tx Sputum culture for afb x 3 ordered - follow up Status: Acute (2) Suicidal ideation: Status: Acute (3) Homicidal ideation: Status: Acute (4) Major depression, recurrent, full remission: Status: Acute (5) Cigarette smoker: Status: Acute Attestations Medical Necessity Statement*: Continue hospitalization for management of psych issues and work up of latent TB Time Spent in Patient Care: Greater than 35 minutes (>than 50% of time spent in counselling and/or direct pt care on unit) . 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
[2020-05-26 19:23] VITALS: BP 142/87; PULSE 75; RESP 18; TEMP 36.5; O2SAT 97
--- NOTE | 2020-05-26 19:44 | PC.NURSE ---
LAYING IN BED READING BIBLE, DENIES WANTING TO HARM SELF. SAYS PLANS ARE TO MOVE TO [facility] IN [place].
[2020-05-26 19:45] LABS: Glucose Point of Care 143 mg/dL (70-110)
[2020-05-26] MEDS: ibuprofen 600 mg Tablet PO (20:45)
[2020-05-26] MEDS: FESOTERODINE 4 MG 4 EACH PO (20:46)
[2020-05-26] MEDS: lisinopril 20 mg Tablet PO (20:49)
[2020-05-26] MEDS: magnesium oxide 400 mg tablet PO (20:49)
[2020-05-26] MEDS: loratadine 10 mg Tablet PO (20:50)
[2020-05-26] MEDS: nystatin cream 30 gm 1 APPLIC TOPICAL (21:03)
[2020-05-26] MEDS: trazodone 100 mg Tablet PO (21:14)
[2020-05-26 22:30] VITALS: PULSE 77; RESP 16; O2SAT 96
--- NOTE | 2020-05-27 02:02 | PC.NURSE ---
CPAP APPLIED PER RT AT APPROX 2230 AT PATIENTS REQUEST. HAS 1-1 SITTER FOR SAFETY.
[2020-05-27 06:00] VITALS: BP 98/61; PULSE 62; RESP 17; TEMP 36.8; O2SAT 94
[2020-05-27] MEDS: LORazepam 1 mg Tablet PO ×2 (06:04→20:46)
[2020-05-27 06:10] LABS: Glucose Point of Care 110 mg/dL (70-110)
[2020-05-27] MEDS: metoprolol succinate ER (24 HR) 100 mg Tablet PO (09:00)
[2020-05-27] MEDS: pyridoxine 50 mg Tablet PO (09:00)
[2020-05-27] MEDS: pantoprazole DR 40 mg Tablet PO (09:12)
[2020-05-27] MEDS: levothyroxine 150 mcg Tablet 75 MCG PO (09:12)
[2020-05-27] MEDS: multivitamin therapeutic Tablet 1 TAB PO (09:13)
[2020-05-27] MEDS: potassium chloride ER 10 mEq Tablet PO (09:13)
[2020-05-27] MEDS: citalopram 20 mg Tablet 5 MG PO (09:13)
[2020-05-27] MEDS: citalopram 20 mg Tablet PO (09:48)
[2020-05-27] MEDS: nitrofurantoin SR (BID) 100 mg Capsule PO ×2 (09:51→20:46)
--- NOTE | 2020-05-27 09:56 | P.PN_ITS ---
Subjective NPU Subjective: Interval history: Charity presents today reporting he is doing better do think. She was starting to feel like she wanted leave but she understands this is for the best. We discussed her pain that is likely from being her size and laying in these little beds. We discussed some as needed pain medication for the remainder of the weekend being hopeful she can discharge on Friday. Mental Status Exam MSE Comments: This is a morbidly obese white female with limited dress, ad equate grooming. No abnormal movements except for mild psychomotor retardation. Cooperative with exam in no acute distress. Speech was normal rate and volume. Mood described as pretty good, but in pain, affect congruent. Thought process organized. Thought content: Patient denied occasional suicidal and homicidal ideation, there were no delusions reported or noted, she denied any auditory or visual hallucinations. Attention and concentration appeared intact and memory appeared mostly reliable but none were formally tested. She is alert and oriented x3. Insight and judgment fair, impulse control is improving. Vitals/I&O/Wt Last Vital Signs Temp 98.3 F 05/27/20 06:00 Pulse 62 05/27/20 06:00 Resp 17 05/27/20 06:00 BP 98/61 05/27/20 06:00 Pulse Ox 94 05/27/20 06:00 Data NPU : 05/22/20 17:18 05/26/20 13:36 A&P Additional A&P Information (1) Suicidal ideation: (2) Homicidal ideation: (3) Major depression, recurrent, full remission: (4) Cigarette smoker: (5) Mild intellectual disability: (6) Morbid obesity: Additional A&P Information This is a 35-year-old white female with a long history of intellectual disab ility, depression and problems interacting with her mother who presents after another conflict reporting lethality and endorsing that it will not be safe for her to return to the place where her mother lives. 1. Continue current medication. Allow for 5 mg Vicodin twice daily as needed. 2. Encourage individual, group and milieu therapy. 3. Continue every 15 minute checks for safety. 4. We will plan for discharge tomorrow to the lodges or whenever they accept her. 5. We agreed to continue monitoring her blood sugars which have been without issue and return her to a normal diet unless that changes. Involuntary Hold Information 96 Hour Hold: 96 Hour Involuntary Admission: Yes Attestations NPU Medical Necessity Statement*: Inpatient hospitalization the medically necessary of the clinically appropriate intervention at this time. We will monitor medications make changes as indicated. Likely length of stay 2-4 days. Coding Level of Care Code Acute Contact Printer Dry Film for [facility]
[2020-05-27 11:11] LABS: Glucose Point of Care 104 mg/dL (70-110)
[2020-05-27 13:37] VITALS: BP 142/73; PULSE 80; RESP 18; TEMP 36.3; O2SAT 95
[2020-05-27] MEDS: LORazepam 0.5 mg Tablet PO (14:02)
[2020-05-27 16:13] LABS: Glucose Point of Care 104 mg/dL (70-110)
[2020-05-27 19:47] LABS: Glucose Point of Care 129 mg/dL (70-110)
[2020-05-27] MEDS: trazodone 100 mg Tablet PO (20:46)
[2020-05-27] MEDS: HYDROcodone-acetaminophen 5-325 mg Tablet 1 TAB PO (20:46)
[2020-05-27] MEDS: lisinopril 20 mg Tablet PO (20:46)
[2020-05-27] MEDS: loratadine 10 mg Tablet PO (20:47)
[2020-05-27] MEDS: FESOTERODINE 4 MG 4 EACH PO (20:48)
[2020-05-27] MEDS: magnesium oxide 400 mg tablet PO (20:53)
[2020-05-27 21:23] VITALS: BP 146/82; PULSE 77; RESP 15; TEMP 36.7; O2SAT 92
[2020-05-28 05:55] VITALS: BMI 65.1
[2020-05-28 05:56] VITALS: BP 112/65; PULSE 82; RESP 17; TEMP 36.8; O2SAT 93
[2020-05-28] MEDS: LORazepam 1 mg Tablet PO (06:41)
[2020-05-28 06:55] LABS: Glucose Point of Care 92 mg/dL (70-110)
[2020-05-28] MEDS: fluticasone nasal spray 16gm Btl 2 SPRAY INTRANASAL (08:23)
[2020-05-28] MEDS: citalopram 20 mg Tablet PO (08:24)
[2020-05-28] MEDS: pantoprazole DR 40 mg Tablet PO (08:24)
[2020-05-28] MEDS: multivitamin therapeutic Tablet 1 TAB PO (08:24)
[2020-05-28] MEDS: nitrofurantoin SR (BID) 100 mg Capsule PO ×2 (08:24→20:44)
[2020-05-28] MEDS: levothyroxine 150 mcg Tablet 75 MCG PO (08:24)
[2020-05-28] MEDS: potassium chloride ER 10 mEq Tablet PO (08:25)
[2020-05-28] MEDS: citalopram 20 mg Tablet 5 MG PO (08:25)
[2020-05-28] MEDS: metoprolol succinate ER (24 HR) 100 mg Tablet PO (08:26)
[2020-05-28] MEDS: pyridoxine 50 mg Tablet PO (08:28)
--- NOTE | 2020-05-28 08:29 | PC.NURSE ---
REFUSED SCHEDULED NYSTATIN POWDER AND CREAM THIS MORNING
[2020-05-28] MEDS: HYDROcodone-acetaminophen 5-325 mg Tablet 1 TAB PO ×2 (09:31→20:44)
[2020-05-28 11:28] LABS: Glucose Point of Care 101 mg/dL (70-110)
[2020-05-28 12:01] VITALS: BP 116/68; PULSE 71; RESP 18; TEMP 36.6; O2SAT 95
--- NOTE | 2020-05-28 12:58 | PM.PN ---
Subjective Subjective: Interval history: Doing well, No complaints overnight. no fever, chills, nausea or vomiting. No cough or respiratory distress. 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 Ok to discharge from medical standpoint Follow up on final culture outpatient Attestations Medical Necessity Statement*: Continue hospital stay pending placement Time Spent in Patient Care: 16 - 35 minutes (>than 50% of time spent in counselling and/or direct pt care on unit). 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
[2020-05-28 16:22] LABS: Glucose Point of Care 107 mg/dL (70-110)
--- NOTE | 2020-05-28 17:33 | P.PN_ITS ---
Subjective NPU Subjective: Interval history: Charity presents today reporting that things are going okay. She is optimistic that she will be able to still possibly go to the [facility] soon. She reports she is a little bored but she has been taking up reading. She denies any new issues and reports she is eating and sleeping well. Mental Status Exam MSE Comments: This is a morbidly obese white female with limited dress, adequate grooming. No abnormal movements. Cooperative with exam in no acute di stress. Speech was normal rate and volume. Mood described as pretty good, but in pain, affect congruent. Thought process organized. Thought content: Patient denied occasional suicidal and homicidal ideation, there were no delusions reported or noted, she denied any auditory or visual hallucinations. Attention and concentration appeared intact and memory appeared mostly reliable but none were formally tested. She is alert and oriented x3. Insight and judgment fair, impulse control is improving. Vitals/I&O/Wt Last Vital Signs Temp 97.9 F 05/28/20 12:01 Pulse 71 05/28/20 12:01 Resp 18 05/28/20 12:01 BP 116/68 05/28/20 12:01 Pulse Ox 95 05/28/20 12:01 Weight last 48 hrs Weight 188.604 kg Data NPU : 05/22/20 17:18 05/26/20 13:36 Micro: Microbiology 05/26/20 06:00 Mycobacterial Smear - Preliminary Sputum - Expectorated Sputum 05/25/20 21:40 Mycobacterial Smear - Preliminary Sputum - Expectorated Sputum Microbiology 05/26/20 06:00 Sputum - Expectorated Sputum Mycobacterial Smear - Preliminary 05/25/20 21:40 Sputum - Expectorated Sputum Mycobacterial Smear - Preliminary A&P Additional A&P Information (1) Suicidal ideation: (2) Homicidal ideation: (3) Major depression, recurrent, full remission: (4) Cigarette smoker: (5) Mild intellectual disability: (6) Morbid obesity: Additional A&P Information This is a 35-year-old white female with a long history of intellectual disability, depression and problems interacting with her mother who presents after another conflict reporting lethality and endorsing that it will not be safe for her to return to the place where her mother lives. 1. Continue current medication. Allow for 5 mg Vicodin twice daily as needed. 2. Encourage individual, group and milieu therapy. 3. Continue every 15 minute checks for safety. 4. We will plan for discharge tomorrow to the [facility] or whenever they accept her. 5. We agreed to continue monitoring her blood sugars which have been without issue and return her to a normal diet unless that changes. 6. We will follow hospitalist recommendation for her latent TB. Involuntary Hold Information 96 Hour Hold: 96 Hour Involuntary Admission: Yes Attestations NPU Medical Necessity Statement*: Inpatient hospitalization the medically necessary of the clinically appropriate intervention at this time. We will monitor medications make changes as indicated. Likely length of stay 1-3 days. Coding Level of Care Code Acute Business Test Analyst for [facility]
[2020-05-28] MEDS: blistex lip oint 7 gm Tube 1 APPLIC TOPICAL (18:24)
[2020-05-28 19:43] LABS: Glucose Point of Care 121 mg/dL (70-110)
[2020-05-28 20:08] VITALS: BP 121/88; PULSE 71; RESP 18; TEMP 36.7; O2SAT 96
[2020-05-28] MEDS: magnesium oxide 400 mg tablet PO (20:44)
[2020-05-28] MEDS: lisinopril 20 mg Tablet PO (20:45)
[2020-05-28] MEDS: loratadine 10 mg Tablet PO (20:45)
[2020-05-28] MEDS: FESOTERODINE 4 MG 4 EACH PO (20:45)
[2020-05-28] MEDS: trazodone 100 mg Tablet PO (20:45)
[2020-05-28] MEDS: nystatin cream 30 gm 1 APPLIC TOPICAL (20:46)
[2020-05-28] MEDS: nystatin powder 15 gm Btl 1 APPLIC TOPICAL (20:46)
[2020-05-29 00:15] VITALS: PULSE 88; RESP 16; RESP 18; O2SAT 95
[2020-05-29] MEDS: trazodone 50 mg Tablet PO (00:30)
[2020-05-29 06:00] VITALS: BP 101/60; PULSE 97; RESP 15; TEMP 36.6; O2SAT 95
[2020-05-29 06:42] LABS: Glucose Point of Care 106 mg/dL (70-110)
[2020-05-29] MEDS: fluticasone nasal spray 16gm Btl 2 SPRAY INTRANASAL (08:53)
[2020-05-29] MEDS: citalopram 20 mg Tablet 5 MG PO (08:54)
[2020-05-29] MEDS: citalopram 20 mg Tablet PO (08:54)
[2020-05-29] MEDS: metoprolol succinate ER (24 HR) 100 mg Tablet PO (08:54)
[2020-05-29] MEDS: multivitamin therapeutic Tablet 1 TAB PO (08:54)
[2020-05-29] MEDS: pyridoxine 50 mg Tablet PO (08:54)
[2020-05-29] MEDS: potassium chloride ER 10 mEq Tablet PO (08:54)
[2020-05-29] MEDS: nitrofurantoin SR (BID) 100 mg Capsule PO ×2 (08:54→20:04)
[2020-05-29] MEDS: pantoprazole DR 40 mg Tablet PO (08:54)
[2020-05-29] MEDS: levothyroxine 150 mcg Tablet 75 MCG PO (08:55)
[2020-05-29] MEDS: nystatin powder 15 gm Btl 1 APPLIC TOPICAL ×2 (08:57→20:05)
[2020-05-29] MEDS: HYDROcodone-acetaminophen 5-325 mg Tablet 1 TAB PO ×2 (09:34→20:04)
--- NOTE | 2020-05-29 12:33 | PC.NURSE ---
ACCUCHECK NOON ACCUCHECK 120
[2020-05-29 13:35] VITALS: BP 123/84; PULSE 79; RESP 18; TEMP 36.6; O2SAT 95
--- NOTE | 2020-05-29 14:26 | PC.SOCIAL ---
Reviewed important Medicare Message with guardian June Gould over the phone. She understands right to appeal. Copy placed in patient chart.
--- NOTE | 2020-05-29 15:15 | PC.NURSE ---
SHOWER OFFERED PATIENT A SHOWER BUT SHE DOES NOT HAVE CLEAN CLOTHES EXCEPT FOR UNDERWEAR. PT REFUSED AT THIS TIME.
[2020-05-29 16:43] LABS: Glucose Point of Care 95 mg/dL (70-110)
--- NOTE | 2020-05-29 19:12 | PM.NPN ---
Subjective NPU Subjective: Interval history: Carrie presents today with no maintained is conscious. We will wait her placement in a facility. Multiple contacts have been made today to facilitate her transfer and she is awaiting an interview at one facility with hopes that they will not be swayed by her latent TB status. She is taking the medication without issue and denies any problems at this time, reporting that her pain is well managed now as well. Mental Status Exam MSE Comments: This is a morbidly obese white female with limited dress, adequate grooming. No abnormal movements. Cooperative with exam in no acute distress. Speech was normal rate and volume. Mood described as pretty good, affect congruent. Thought process organized. Thought content: Patient denied occasional suicidal and homicidal ideation, there were no delusions reported or noted, she denied any auditory or visual hallucinations. Attention and concentration appeared intact and memory appeared mostly reliable but none were formally tested. She is alert and oriented x3. Insight and judgment fair, impulse control is improving. Vitals/I&O/Wt Last Vital Signs Temp 97.9 F 05/29/20 20:18 Pulse 64 05/29/20 20:18 Resp 18 05/29/20 20:18 BP 112/73 05/29/20 20:18 Pulse Ox 96 05/29/20 20:18 Data NPU : 05/22/20 17:18 05/26/20 13:36 A&P Additional A&P Information (1) Suicidal ideation: (2) Homicidal ideation: (3) Major depression, recurrent, full remission: (4) Cigarette smoker: (5) Mild intellectual disability: (6) Morbid obesity: Additional A&P Information This is a 35-year-old white female with a long history of intellectual disability, depression and problems interacting with her mother who presents after another conflict reporting lethality and endorsing that it will not be safe for her to return to the place where her mother lives. 1. Continue current medication. 2. Encourage individual, group and milieu therapy. 3. Continue every 15 minute checks for safety. 4. We will plan for discharge tomorrow to the [facility] or whenever they accept her. 5. We agreed to continue monitoring her blood sugars which have been without issue and return her to a normal diet unless that changes. 6. We will follow hospitalist recommendation for her latent TB. Involuntary Hold Information 96 Hour Hold: 96 Hour Involuntary Admission: Yes Attestations NPU Medical Necessity Statement*: Inpatient hospitalization the medically necessary of the clinically appropriate intervention at this time. We will monitor medications make changes as indicated. Likely length of stay 1-2 days. Coding Level of Care Code Acute Brazing Furnace Feeder for [facility] Ramos
[2020-05-29 19:34] LABS: Glucose Point of Care 112 mg/dL (70-110)
[2020-05-29] MEDS: trazodone 100 mg Tablet PO (20:04)
[2020-05-29] MEDS: magnesium oxide 400 mg tablet PO (20:04)
[2020-05-29] MEDS: loratadine 10 mg Tablet PO (20:04)
[2020-05-29] MEDS: lisinopril 20 mg Tablet PO (20:04)
[2020-05-29] MEDS: nystatin cream 30 gm 1 APPLIC TOPICAL (20:05)
[2020-05-29] MEDS: FESOTERODINE 4 MG 4 EACH PO (20:05)
[2020-05-29 20:18] VITALS: BP 112/73; PULSE 64; RESP 18; TEMP 36.6; O2SAT 96
--- NOTE | 2020-05-29 21:19 | PM.PN ---
Subjective Subjective: Interval history: No new clinical events overnight. Patient denies any fever, chills, nausea vomiting. 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: Status: Acute (2) Suicidal ideation: Status: Acute (3) Homicidal ideation: Status: Acute (4) Major depression, recurrent, full remission: Status: Acute (5) Cigarette smoker: Status: Acute Noted to have Latent TB Chest-xray - No acute abnormality Afebrile- no leukocytosis No evidence of active TB Started on INH - Plan for 9 months of tx Follow up on sputum culture - prilim afb negative Ok to discharge from medical standpoint Follow up on final culture outpatient Attestations Medical Necessity Statement*: continue hospitalization until cleared by primary service Time Spent in Patient Care: 16 - 35 minutes Coding Level of Care Code Acute On Site Wastewater Systems Technician for [facility] Fwd Diagnoses 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
[2020-05-29] MEDS: LORazepam 1 mg Tablet PO (22:10)
[2020-05-30 06:00] VITALS: BP 109/72; PULSE 82; RESP 16; TEMP 36.6; O2SAT 95
[2020-05-30 06:15] LABS: Glucose Point of Care 95 mg/dL (70-110)
[2020-05-30] MEDS: LORazepam 1 mg Tablet PO ×2 (06:18→08:01)
[2020-05-30] MEDS: nitrofurantoin SR (BID) 100 mg Capsule PO ×2 (08:01→21:22)
[2020-05-30] MEDS: pantoprazole DR 40 mg Tablet PO (08:01)
[2020-05-30] MEDS: multivitamin therapeutic Tablet 1 TAB PO (08:02)
[2020-05-30] MEDS: levothyroxine 150 mcg Tablet 75 MCG PO (08:02)
[2020-05-30] MEDS: metoprolol succinate ER (24 HR) 100 mg Tablet PO (08:02)
[2020-05-30] MEDS: citalopram 20 mg Tablet 5 MG PO (08:02)
[2020-05-30] MEDS: pyridoxine 50 mg Tablet PO (08:02)
[2020-05-30] MEDS: citalopram 20 mg Tablet PO (08:02)
[2020-05-30] MEDS: potassium chloride ER 10 mEq Tablet PO (08:02)
[2020-05-30] MEDS: fluticasone nasal spray 16gm Btl 2 SPRAY INTRANASAL (08:02)
[2020-05-30] MEDS: nystatin cream 30 gm 1 APPLIC TOPICAL ×2 (08:03→21:25)
[2020-05-30] MEDS: nystatin powder 15 gm Btl 1 APPLIC TOPICAL ×2 (08:03→21:25)
[2020-05-30] MEDS: HYDROcodone-acetaminophen 5-325 mg Tablet 1 TAB PO ×2 (08:09→17:23)
[2020-05-30] MEDS: blistex lip oint 7 gm Tube 1 APPLIC TOPICAL (09:31)
[2020-05-30 11:32] LABS: Glucose Point of Care 105 mg/dL (70-110)
--- NOTE | 2020-05-30 11:39 | P.PN_ITS ---
Subjective NPU Subjective: Interval history: Charity presents today hopeful about placement but functioning well. She endorses that she had her interview and she is just waiting to find out what the outcome is going to be. She is trying to be positive at this time but she is starting to get bored. Otherwise she continues to have a positive spirit and reports that she is managing her pain better. Mental Status Exam MSE Comments: This is a morbidly obese white female with adequate dress, grooming and eye contact. No abnormal movements. Cooperative with exam in no acute distress. Speech was normal rate and volume. Mood described as fine, affect congruent. Thought process organized. Thought content: Patient denied suicidal and homicidal ideation, there were no delusions reported or noted, she denied any auditory or visual hallucinations. Attention and concentration appeared intact and memory appeared mostly reliable but none were formally tested. She is alert and oriented x3. Insight and judgment fair, impulse control is improving. Vitals/I&O/Wt Last Vital Signs Temp 97.8 F 05/30/20 06:00 Pulse 82 05/30/20 06:00 Resp 16 05/30/20 06:00 BP 109/72 05/30/20 06:00 Pulse Ox 95 05/30/20 06:00 Data NPU : 05/22/20 17:18 05/26/20 13:36 Micro: Microbiology 05/28/20 00:08 Mycobacterial Smear - Preliminary Sputum - Expectorated Sputum Microbiology 05/28/20 00:08 Sputum - Expectorated Sputum Mycobacterial Smear - Preliminary A&P Additional A&P Information (1) Suicidal ideation: (2) Homicidal ideation: (3) Major depression, recurrent, full remission: (4) Cigarette smoker: (5) Mild intellectual disability: (6) Morbid obesity: Additional A&P Information This is a 35-year-old white female with a long history of intellectual disability, depression and problems interacting with her mother who presents after another conflict reporting lethality and endorsing that it will not be safe for her to return to the place where her mother lives. 1. Continue current medication. 2. Encourage individual, group and milieu therapy. 3. Continue every 15 minute checks for safety. 4. She finally got accepted to the program but will not discharge until Friday. Involuntary Hold Information 96 Hour Hold: 96 Hour Involuntary Admission: Yes Attestations NPU Medical Necessity Statement*: Inpatient hospitalization the medically necessary of the clinically appropriate intervention at this time. We will monitor medications make changes as indicated. She will be discharged Friday morning. Coding Level of Care Code Acute Per Diem Physical Therapist Assistant for [facility] Ramos
[2020-05-30] MEDS: LORazepam 0.5 mg Tablet PO (13:54)
[2020-05-30 14:00] VITALS: BP 103/67; PULSE 73; RESP 18; TEMP 36.3; O2SAT 96
[2020-05-30 16:25] LABS: Glucose Point of Care 102 mg/dL (70-110)
--- NOTE | 2020-05-30 16:45 | PC.NURSE ---
Regular diet Per Dr Lynne, this patient is allowed to have a regular diet. He does not wish to restrict her diet since her glucose numbers have been controlled well. Pt glucose today is 102 and has not needed insulin.
[2020-05-30 19:33] LABS: Glucose Point of Care 128 mg/dL (70-110)
[2020-05-30] MEDS: lisinopril 20 mg Tablet PO (21:22)
[2020-05-30] MEDS: trazodone 100 mg Tablet PO (21:22)
[2020-05-30] MEDS: loratadine 10 mg Tablet PO (21:22)
[2020-05-30] MEDS: magnesium oxide 400 mg tablet PO (21:22)
[2020-05-30] MEDS: FESOTERODINE 4 MG 4 EACH PO (21:23)
[2020-05-30 22:00] VITALS: BP 117/61; PULSE 70; RESP 18; TEMP 36.9; O2SAT 92
[2020-05-30] MEDS: ondansetron 4 MG Tablet PO (22:09)
[2020-05-31 01:16] VITALS: PULSE 80; RESP 16; O2SAT 95
[2020-05-31] MEDS: LORazepam 1 mg Tablet PO ×2 (05:50→21:24)
[2020-05-31 06:00] VITALS: BP 87/55; PULSE 66; RESP 16; TEMP 36.8; O2SAT 92
[2020-05-31 06:39] LABS: Glucose Point of Care 97 mg/dL (70-110)
[2020-05-31] MEDS: pantoprazole DR 40 mg Tablet PO (09:06)
[2020-05-31] MEDS: nitrofurantoin SR (BID) 100 mg Capsule PO ×2 (09:06→21:35)
[2020-05-31] MEDS: levothyroxine 150 mcg Tablet 75 MCG PO (09:06)
[2020-05-31] MEDS: citalopram 20 mg Tablet PO (09:06)
[2020-05-31] MEDS: potassium chloride ER 10 mEq Tablet PO (09:06)
[2020-05-31] MEDS: metoprolol succinate ER (24 HR) 100 mg Tablet PO (09:06)
[2020-05-31] MEDS: pyridoxine 50 mg Tablet PO (09:06)
[2020-05-31] MEDS: multivitamin therapeutic Tablet 1 TAB PO (09:06)
[2020-05-31] MEDS: citalopram 20 mg Tablet 5 MG PO (09:06)
[2020-05-31] MEDS: fluticasone nasal spray 16gm Btl 2 SPRAY INTRANASAL (09:10)
[2020-05-31] MEDS: HYDROcodone-acetaminophen 5-325 mg Tablet 1 TAB PO ×2 (09:13→21:24)
[2020-05-31 11:35] LABS: Glucose Point of Care 130 mg/dL (70-110)
[2020-05-31 14:00] VITALS: BP 123/82; PULSE 87; RESP 20; TEMP 36.6; O2SAT 96
[2020-05-31] MEDS: LORazepam 0.5 mg Tablet PO (14:44)
--- NOTE | 2020-05-31 15:39 | PM.NPN ---
Subjective NPU Subjective: Interval history: Charity presents today reporting that she is doing okay. It is morning and she is rather be able to go outside and visit with family and friends. Friday at this point seems so far away. Otherwise however she is doing fine and reports that she is eating and sleeping okay. Mental Status Exam MSE Comments: This is a morbidly obese white female with adequate dress, grooming and eye contact. No abnormal movements. Cooperative with exam in no acute distress. Speech was normal rate and volume. Mood described as bored, affect congruent. Thought process organized. Thought content: Patient denied suicidal and homicidal ideation, there were no delusions reported or noted, she denied any auditory or visual hallucinations. Attention and concentration appeared intact and memory appeared mostly reliable but none were formally tested. She is alert and oriented x3. Insight and judgment fair, impulse control is improving. Vitals/I&O/Wt Last Vital Signs Temp 98.0 F 05/31/20 14:00 Pulse 87 05/31/20 14:00 Resp 20 H 05/31/20 14:00 BP 123/82 05/31/20 14:00 Pulse Ox 96 05/31/20 14:00 Data NPU : 05/22/20 17:18 05/26/20 13:36 A&P Additional A&P Information (1) Suicidal ideation: (2) Homicidal ideation: (3) Major depression, recurrent, full remission: (4) Cigarette smoker: (5) Mild intellectual disability: (6) Morbid obesity: Additional A&P Information This is a 35-year-old white female with a long history of intellectual disability, depression and problems interacting with her mother who presents after another conflict reporting lethality and endorsing that it will not be safe for her to return to the place where her mother lives. 1. Continue current medication. 2. Encourage individual, group and milieu therapy. 3. Continue every 15 minute checks for safety. 4. She finally got accepted to the program but will not discharge until Friday which is their first time they can fit her in. Involuntary Hold Information 96 Hour Hold: 96 Hour Involuntary Admission: Yes Attestations NPU Medical Necessity Statement*: Inpatient hospitalization the medically necessary of the clinically appropriate intervention at this time. We will monitor medications make changes as indicated. She will be discharged Friday morning. Coding Level of Care Code Acute Longitudinal Float Operator for Kleber Ramos
[2020-05-31 16:50] LABS: Glucose Point of Care 107 mg/dL (70-110)
[2020-05-31 20:01] LABS: Glucose Point of Care 122 mg/dL (70-110)
[2020-05-31] MEDS: trazodone 100 mg Tablet PO (21:23)
[2020-05-31] MEDS: magnesium oxide 400 mg tablet PO (21:23)
[2020-05-31] MEDS: loratadine 10 mg Tablet PO (21:23)
[2020-05-31] MEDS: lisinopril 20 mg Tablet PO (21:23)
[2020-05-31] MEDS: FESOTERODINE 4 MG 4 EACH PO (21:26)
[2020-05-31] MEDS: nystatin cream 30 gm 1 APPLIC TOPICAL (21:28)
[2020-05-31] MEDS: nystatin powder 15 gm Btl 1 APPLIC TOPICAL (21:29)
[2020-05-31 22:00] VITALS: BP 131/64; PULSE 57; RESP 18; TEMP 36.5; O2SAT 100
[2020-06-01] VITALS: PULSE 82; RESP 17; O2SAT 96
--- NOTE | 2020-06-01 00:50 | PC.NURSE ---
Skin breakdown Pt has reddened areas of skin between her leg folds, thigh, groin, and breasts bilaterally. Areas cleaned, dried, and nystatin cream and powder applied to areas as indicated. Will continue to monitor.
--- NOTE | 2020-06-01 00:51 | PC.NURSE ---
Sitter Pt is resting calmly with 1:1 sitter at the bedside.
--- NOTE | 2020-06-01 01:25 | PC.NURSE ---
PM Assessment On assessment, pt lungs sounds are diminished, heart sounds are normal at this time, Glucose is 124 this evening. She is in the dayroom with other patients watching television. She seems calm at this time. Pt denies AH, VH, SI, HI at this time. She does have pain in her lower back and legs rated at a 10 on a 1-10 pain scale. Med Nurse notified of pain and she has received medication. On reassessment of pain, pt reports a decrease, and is resting comfortably in her bed, wearing her cpap, and has a 1:1 sitter at the bedside. Will continue to monitor this pt.
--- NOTE | 2020-06-01 04:29 | PC.NURSE ---
Patient Gown Pt urinated in the bed. She has some clean underwear but she does not have any pants that will fit her. Staff placed her in a hospital gown due to lack of clothing availability for a person of size. She has a sitter at the bedside. She needs clothing jacinto.
--- NOTE | 2020-06-01 04:33 | PC.NURSE ---
Contact Guardian June Gould is the legal guardian. Her contact information is [phone]. Pt needs clothing that fits. She does not have anything appropriate to wear on the unit.
[2020-06-01] MEDS: ibuprofen 600 mg Tablet PO (04:54)
--- NOTE | 2020-06-01 05:01 | PC.NURSE ---
Addendum entered by Kristine Dove RN 06/01/20 05:42: Pt reports decrease in pain to a 4 on 1-10 pain scale. Original Note: Motrin 600mg po given for pain rated 8 on 1-10 pain scale. Pt reports pain in her umbilical region r/t hernia. Pt states, last time I was here, I had a CT. I saw , was supposed to have surgery, but my aunt would not allow it until I was in a skilled nursing. Will continue to monitor patient progress for pain relief.
[2020-06-01 06:00] VITALS: BP 131/64; PULSE 80; RESP 17; TEMP 37; O2SAT 97
[2020-06-01] MEDS: LORazepam 1 mg Tablet PO ×2 (06:43→21:15)
[2020-06-01] MEDS: multivitamin therapeutic Tablet 1 TAB PO (09:28)
[2020-06-01] MEDS: fluticasone nasal spray 16gm Btl 2 SPRAY INTRANASAL (09:28)
[2020-06-01] MEDS: potassium chloride ER 10 mEq Tablet PO (09:28)
[2020-06-01] MEDS: citalopram 20 mg Tablet PO (09:28)
[2020-06-01] MEDS: nitrofurantoin SR (BID) 100 mg Capsule PO ×2 (09:28→21:16)
[2020-06-01] MEDS: pantoprazole DR 40 mg Tablet PO (09:29)
[2020-06-01] MEDS: pyridoxine 50 mg Tablet PO (09:29)
[2020-06-01] MEDS: levothyroxine 150 mcg Tablet 75 MCG PO (09:29)
[2020-06-01] MEDS: citalopram 20 mg Tablet 5 MG PO (09:29)
[2020-06-01] MEDS: metoprolol succinate ER (24 HR) 100 mg Tablet PO (09:29)
[2020-06-01] MEDS: nystatin powder 15 gm Btl 1 APPLIC TOPICAL (09:33)
[2020-06-01] MEDS: nystatin cream 30 gm 1 APPLIC TOPICAL (09:33)
[2020-06-01 13:30] VITALS: BP 116/81; PULSE 74; RESP 18; TEMP 36.8; O2SAT 95
[2020-06-01] MEDS: HYDROcodone-acetaminophen 5-325 mg Tablet 1 TAB PO (13:34)
[2020-06-01] MEDS: LORazepam 0.5 mg Tablet PO (13:34)
--- NOTE | 2020-06-01 18:04 | PM.NPN ---
Subjective NPU Subjective: Interval history: Carrie presents today doing fine overall with her mental health but struggling with pain. Started she had a abdominal hernia but was scheduled to have outpatient repair at some point. There was a hospitalist consult obtained and results pending. Otherwise she was positive and looking forward to discharge on Friday. Denied any significant changes or issues. Mental Status Exam MSE Comments: This is a morbidly obese white female with adequate dress, grooming and eye contact. No abnormal movements. Cooperative with exam in mild distress. Speech was normal rate and volume. Mood described as okay but in pain, affect congruent. Thought process organized. Thought content: Patient denied suicidal and homicidal ideation, there were no delusions reported or noted, she denied any auditory or visual hallucinations. Attention and concentration appeared intact and memory appeared mostly reliable but none were formally tested. She is alert and oriented x3. Insight and judgment fair, impulse control is improving. Vitals/I&O/Wt Last Vital Signs Temp 98 F 06/01/20 14:00 Pulse 87 06/01/20 14:00 Resp 20 H 06/01/20 14:00 BP 123/82 06/01/20 14:00 Pulse Ox 96 06/01/20 14:00 Data NPU : 06/01/20 21:33 05/26/20 13:36 A&P Additional A&P Information (1) Suicidal ideation: (2) Homicidal ideation: (3) Major depression, recurrent, full remission: (4) Cigarette smoker: (5) Mild intellectual disability: (6) Morbid obesity: Additional A&P Information This is a 35-year-old white female with a long history of intellectual disability, depression and problems interacting with her mother who presents after another conflict reporting lethality and endorsing that it will not be safe for her to return to the place where her mother lives. 1. Continue current medication. 2. Encourage individual, group and milieu therapy. 3. Continue every 15 minute checks for safety. 4. She finally got accepted to the program but will not discharge until Friday which is their first time they can fit her in. 5. Appreciate hospitalist consult and will await findings and recommendations. Involuntary Hold Information 96 Hour Hold: 96 Hour Involuntary Admission: Yes Attestations NPU Medical Necessity Statement*: Inpatient hospitalization the medically necessary of the clinically appropriate intervention at this time. We will monitor medications make changes as indicated. She will be discharged Friday morning. Coding Level of Care Code Acute Prekindergarten Teacher for Kleber Ramos
[2020-06-01 20:04] LABS: Glucose Point of Care 125 mg/dL (70-110)
[2020-06-01 20:04] LABS: Glucose Point of Care 95 mg/dL (70-110)
[2020-06-01 20:04] LABS: Glucose Point of Care 121 mg/dL (70-110)
[2020-06-01 20:04] LABS: Glucose Point of Care 105 mg/dL (70-110)
[2020-06-01 20:10] VITALS: BP 94/53; PULSE 72; RESP 18; TEMP 37.1; O2SAT 92
--- NOTE | 2020-06-01 21:13 | PM.CONSULT ---
Providers/Reason For Consult Consulting Physican/Specialty*: Hospitalist Reason for Consult*: Periumbilical/ventral hernia pain Attending Physician: Pasha Lynne MD Primary Care Provider: Selma Robles MD History of Present Illness History of Present Illness Charity Blake is a 35 year old female who is currently in neuropsychiatric unit, currently being treated for latent tuberculosis, I have seen her few days ago, I was requested to see her again for her abdominal pain. Patient is stating that she was asked to undergo surgery for her umbilical hernia, she was supposed to follow-up with Dr. Kendrick in the past, 03/27/2020 CT abdomen revealed ventral abdominal wall hernia containing omentum only orifice of hernia 4.2 cm which has increased from size since November, nonobstructing 6 mm calcified lower pole kidney stone, normal appendix. Patient is stating that last night she woke up because of her abdominal pain, her taste of mouth is also changing, endorsing worsening abdominal pain with eating, attributing her change of bowel to irritable bowel syndrome. Denying nausea, vomiting, excruciating pain. Review of Systems Const: Denies: fever(s) Eyes: Denies: change in vision ENMT: Denies: throat pain Card: Denies: chest pain Resp: Denies: dyspnea GI: Reports: abdominal pain, heartburn, early satiety, diarrhea, constipation, bloating and GI cramping; Denies: nausea, vomiting or dysphagia : Denies: flank pain Musc: Denies: neck pain Skin/Breast: Denies: rash Neuro: Denies: headache(s) or confusion Psych: Reports: anxiety, depression and hopelessness Endo: Denies: polyuria Liang/Lymph: Denies: easy bruising All/Imm: Denies: urticaria Meds/Allergies Home Medications and Allergies Home Medications Medication Instructions Recorded Confirmed Last Taken Type albuterol sulfate 90 mcg/actuation 2 puff INHALATION Q4H PRN gm 08/11/19 05/22/20 Unknown History aerosol inhaler fesoterodine 4 mg tablet,extended 4 mg PO BEDTIME tab 08/11/19 05/22/20 05/21/20 History release 24 hr fluticasone propionate 50 2 spray INTRANASAL DAILY 08/11/19 05/22/20 02/08/20 History mcg/actuation nasal spray,suspension furosemide 20 mg tablet 20 mg PO QAM PRN 08/11/19 05/22/20 Unknown History lisinopril 20 mg tablet 20 mg PO QPM 08/11/19 05/22/20 05/21/20 History loratadine 10 mg tablet 10 mg PO QPM 08/11/19 05/22/20 05/21/20 History metoprolol succinate 100 mg 100 mg PO DAILY 08/11/19 05/22/20 05/21/20 History capsule sprinkle, ext. release 24 hr multivitamin 1 tab PO QAM 08/11/19 05/22/20 05/21/20 History omeprazole 40 mg capsule,delayed 40 mg PO DAILY 08/11/19 05/22/20 05/21/20 History release potassium chloride 10 mEq See Rx Instructions .ROUTE .COMPLEX 08/11/19 05/22/20 Unknown History capsule,extended release tiagabine 4 mg tablet 4 mg PO BID 08/11/19 05/22/20 05/21/20 History tranexamic acid 650 mg tablet 650 mg PO PRN tab 08/11/19 05/22/20 Unknown History naproxen 500 mg tablet 750 mg PO BID PRN tab 09/24/19 05/22/20 Unknown History citalopram 10 mg tablet 5 mg PO DAILY #15 tab 01/11/20 05/22/20 02/08/20 Rx ibuprofen 600 mg PO Q8H PRN 02/09/20 05/22/20 05/22/20 16:00 History nystatin [Nystop] See Rx Instructions .ROUTE .COMPLEX 02/09/20 05/22/20 Unknown History ondansetron 4 mg PO Q6H PRN #14 tab 02/09/20 05/22/20 Unknown Rx buspirone 15 mg tablet 15 mg PO TID #90 tab 03/08/20 05/22/20 05/21/20 Rx nitrofurantoin 100 mg PO BID #60 cap 04/25/20 05/22/20 05/21/20 Rx monohydrate/macrocrystals 100 mg capsule [id number]-zeln-[id number] 2 tab PO PRN 05/22/20 05/22/20 05/22/20 16:00 History [Midol Complete] levothyroxine 75 mcg PO DAILY 05/22/20 05/22/20 05/21/20 History magnesium oxide 400 mg PO QPM 05/22/20 05/22/20 05/21/20 History metformin 500 mg PO BID 05/22/20 05/22/20 05/21/20 History nystatin 1 applic TOPICAL TID 05/22/20 05/22/20 Unknown History trazodone 100 mg PO BEDTIME 05/22/20 05/22/20 05/21/20 History lorazepam 1 mg PO BID 05/26/20 05/26/20 Unknown History Allergies Allergy/AdvReac Type Severity Reaction Status Date / Time tramadol Allergy Severe ADR-Seizure Verified 05/28/20 21:31 trimethoprim Allergy Severe Unknown Verified 05/22/20 16:59 adhesive Allergy Unknown Unknown Verified 05/22/20 16:59 latex Allergy Unknown Unknown Verified 05/22/20 16:59 Sulfa (Sulfonamide Allergy Unknown Unknown Verified 05/22/20 16:59 Antibiotics) Current Medications Current Medications Generic Name Dose Route Start Last Admin Trade Name Freq PRN Reason Stop Dose Admin Hydrocodone Bitart/Acetaminophen 1 tab 05/31/20 20:58 06/01/20 13:34 Hydrocodone-Acetaminophen 5-325 Mg Tablet PO 1 tab BID PRN Administration MODERATE PAIN Albuterol Sulfate 2 puff 05/22/20 20:50 05/25/20 12:17 Albuterol 8 Gm Mdi INHALATION 2 puff Q4H PRN Administration Shortness Of Breath Buspirone HCl 15 mg 05/22/20 21:00 06/01/20 16:21 Buspirone 15 Mg Tablet PO 15 mg TID NAY Administration Camphor/Menthol/Phenol 1 applic 05/22/20 18:21 05/30/20 09:31 Blistex Lip Oint 7 Gm Tube TOPICAL 1 applic Q1H PRN Administration DRYNESS Citalopram Hydrobromide 20 mg 05/23/20 09:00 06/01/20 09:28 Citalopram 20 Mg Tablet PO 20 mg DAILY NAY Administration Citalopram Hydrobromide 5 mg 05/23/20 09:00 06/01/20 09:29 Citalopram 20 Mg Tablet PO 5 mg DAILY NAY Administration Fluticasone Propionate 2 spray 05/23/20 09:00 06/01/20 09:28 Fluticasone Nasal [place] 16gm Btl INTRANASAL 2 spray DAILY NAY Administration Fluticasone Propionate 2 puff 05/22/20 20:50 05/25/20 12:17 Fluticasone 110 Mcg Inhaler 12gm INHALATION 2 puff BID PRN Administration Shortness Of Breath Ibuprofen 600 mg 05/22/20 20:50 06/01/20 04:54 Ibuprofen 600 Mg Tablet PO 600 mg Q8H PRN Administration Pain Insulin Aspart 0 unit 05/23/20 08:00 06/01/20 16:24 Insulin Aspart 100 Unit/1 Ml SUBCUT Not Given WM&BEDTIME NAY Protocol Isoniazid 300 mg 05/26/20 09:00 06/01/20 09:29 Isoniazid 300 Mg Tablet PO 300 mg DAILY NAY Administration Levothyroxine Sodium 75 mcg 05/23/20 09:00 06/01/20 09:29 Levothyroxine 150 Mcg Tablet PO 75 mcg DAILY NAY Administration Lisinopril 20 mg 05/24/20 21:00 05/31/20 21:23 Lisinopril 20 Mg Tablet PO 20 mg BEDTIME NAY Administration Loratadine 10 mg 05/24/20 21:00 05/31/20 21:23 Loratadine 10 Mg Tablet PO 10 mg BEDTIME NAY Administration Lorazepam 1 mg 05/30/20 07:00 06/01/20 06:43 Lorazepam 1 Mg Tablet PO 1 mg 07,21 NAY Administration Lorazepam 0.5 mg 05/30/20 14:00 06/01/20 13:34 Lorazepam 0.5 Mg Tablet PO 0.5 mg 14 NAY Administration Magnesium Oxide 400 mg 05/24/20 21:00 05/31/20 21:23 Magnesium Oxide 400 Mg Tablet PO 400 mg BEDTIME NAY Administration Metoprolol Succinate 100 mg 05/23/20 09:00 06/01/20 09:29 Metoprolol Succinate Er (24 Hr) 100 Mg Tablet PO 100 mg DAILY NAY Administration Multivitamins Therapeutic 1 tab 05/24/20 09:00 06/01/20 09:28 Multivitamin Therapeutic Tablet PO 1 tab DAILY NAY Administration Nitrofurantoin Macrocrystals 100 mg 05/24/20 21:00 06/01/20 09:28 Nitrofurantoin Sr (Bid) 100 Mg Capsule PO 100 mg 09,2100 NAY Administration Non-Formulary Medication 4 mg 05/23/20 09:00 06/01/20 17:14 Tiagabine PO 4 mg BID NAY Administration Non-Formulary Medication 4 mg 05/24/20 21:00 05/31/20 21:26 Fesoterodine [Toviaz] PO 4 mg BEDTIME NAY Administration Nystatin 1 applic 05/22/20 21:00 06/01/20 16:15 Nystatin Cream 30 Gm TOPICAL Not Given TID NAY Nystatin 1 applic 05/22/20 21:00 06/01/20 16:15 Nystatin Powder 15 Gm Btl TOPICAL Not Given TID [facility] Ondansetron HCl 4 mg 05/22/20 18:21 05/30/20 22:09 Ondansetron 4 Mg Tablet PO 4 mg Q6H PRN Administration NAUSEA AND VOMITING Pantoprazole Sodium 40 mg 05/23/20 09:00 06/01/20 09:[address] 40 Mg Tablet PO 40 mg DAILY NAY Administration Potassium Chloride 10 meq 05/24/20 09:00 06/01/20 09:28 Potassium Chloride Er 10 Meq Tablet PO 10 meq DAILY NAY Administration Pyridoxine HCl 50 mg 05/25/20 21:30 06/01/20 09:29 Pyridoxine 50 Mg Tablet PO 50 mg DAILY NAY Administration Trazodone HCl 50 mg 05/22/20 18:21 05/29/20 00:30 Trazodone 50 Mg Tablet PO 50 mg BEDTIME PRN Administration SLEEP Trazodone HCl 100 mg 05/22/20 21:00 05/31/20 21:23 Trazodone 100 Mg Tablet PO 100 mg BEDTIME NAY Administration PFSH Acute PFSH: Medical History Breakthrough seizure Cigarette smoker Flank pain with history of urolithiasis Gastritis History of kidney stones Major depression, recurrent, full remission Migraine Mild intellectual disability Morbid obesity Recurrent UTI Sleep apnea Surgical History Ganglion cyst of dorsum of left wrist History of carpal tunnel surgery Hx of tympanostomy bilateral Left elbow fracture Repair of left elbow fracture/olecranon process Family History Grandfather Tuberculosis Other Alpha galactosidase deficiency Social History Smoking and tobacco status: current every day smoker Alcohol intake: current Alcohol intake frequency: holidays/special occasions only Lives independently: No Household members: family Marital status: Single Current occupational status: disabled Current gender identity: Female Female Reproductive History: Date of last menstrual period: 03/26/20 Vitals/I&O/Wt Last Vital Signs Temp 98.7 F 06/01/20 20:10 Pulse 72 06/01/20 20:10 Resp 18 06/01/20 20:10 BP 94/53 06/01/20 20:10 Pulse Ox 92 06/01/20 20:10 Physical Exam Narrative: EXAM NARRATIVE: Morbidly obese young female She was in the day room when I greeted her and asked her to come to the room for examination and evaluation, She walked on her own She did not complain abdominal pain until deep palpation of her abdomen, she has ventral hernia, palpation of her abdomen is eliciting pain, she does not have active signs of peritonitis rigidity or guarding but pain on deep palpation Does not look septic No acute respiratory No active chest pain, Not complaining of active joint pains Gait normal Oriented to time place and person awake alert GCS 15 She is not endorsing any suicidal ideation to me Cooperative and pleasant during my evaluation No skin rash gangrene or ulcer Lower extremity nonpitting oedema A&P Assessment and plan (1) Ventral hernia: Abdominal pain secondary to ventral hernia CT abdomen was reviewed which showed omentum content without any incarceration however size has increased from previous study which was done in November of this year orifice of hernia 4.2 cm Patient was evaluated by Dr. Kendrick in the past and she was recommended surgical intervention Considering her active abdominal pain on deep palpation I would request another CT abdomen with pelvis to see dimensions and rule out incarceration of hernia content versus obstruction Would recommend general surgery consult, depending on her CT abdomen pelvis with contrast will make further recommendations Would request lactic acid stat, CBC stat to rule out sepsis Status: Acute Consult Attestations Medical Necessity Statement: As per NPU Time Spent in Patient Care: 30mins Coding Level of Care Code Acute Cpc for Chg Fwd Diagnoses Ventral hernia K43.9
[2020-06-01] MEDS: loratadine 10 mg Tablet PO (21:15)
[2020-06-01] MEDS: lisinopril 20 mg Tablet PO (21:15)
[2020-06-01] MEDS: magnesium oxide 400 mg tablet PO (21:16)
[2020-06-01] MEDS: trazodone 100 mg Tablet PO (21:16)
--- NOTE | 2020-06-01 21:16 | CTR_ITS ---
PROCEDURE INFORMATION: Exam: CT Abdomen And Pelvis With Contrast Exam date and time: 06/01/2020 9:19 PM Age: 35 years old Clinical indication: Condition or disease; Hernia; Additional info: Ventral hernia TECHNIQUE: Imaging protocol: Computed tomography of the abdomen and pelvis with intravenous contrast. Radiation optimization: All CT scans at this facility use at least one of these dose optimization techniques: automated exposure control; mA and/or kV adjustment per patient size (includes targeted exams where dose is matched to clinical indication); or iterative reconstruction. Contrast material: OMNI 300; Contrast volume: 95 ml; Contrast route: INTRAVENOUS (IV); Other contrast: Oral, OMNI 300, 25; COMPARISON: CT abdomen pelvis wo/w [id number] 03/27/2020 3:46 PM RADIATION DOSE METRICS: Total DLP (mGy-cm): 1945.99 FINDINGS: Lungs: There is a benign calcified granuloma in the left lower lobe. Liver: The liver is normal. Gallbladder and bile ducts: The gallbladder is normal. There is no biliary dilation. Pancreas: The pancreas is unremarkable. Spleen: The spleen is moderately enlarged. Adrenal glands: The adrenal glands are unremarkable. Kidneys and ureters: There is a nonobstructive stone in the left kidney. The right kidney and ureter are unremarkable. Stomach and bowel: The stomach is unremarkable. The small bowel is nondilated. The colon is unremarkable. Appendix: The appendix is normal. Intraperitoneal space: There is no free air or significant intraperitoneal free fluid. Vasculature: The aorta is unremarkable. There is no aneurysm. The portal, splenic and superior mesenteric veins are patent. Lymph nodes: There is no lymphadenopathy in the retroperitoneum, mesentery, pelvis or inguinal regions. Urinary bladder: Unremarkable as visualized. Reproductive: An intrauterine device is appropriately positioned within the endometrial canal. There is no adnexal mass or large cyst. Bones/joints: Bones are unremarkable. Soft tissues: There is a moderate size fat containing periumbilical ventral hernia with a narrow neck. There is no edema or fluid in the hernia sac. There is no bowel in the hernia sac. The findings are unchanged compared to 03/27/2020. CT/CT abdomen pelvis w con* [id number] IMPRESSION: 1. No change in a fat containing periumbilical ventral hernia since 03/27/2020. 2. Incidental findings above. Radiation Dose CTDIVOL = (mGy): DLP = 1945.99 (mGy-cm)
[2020-06-01] MEDS: FESOTERODINE 4 MG 4 EACH PO (21:17)
[2020-06-01 21:42] LABS: Basophils # 0.1 10^3/uL (0.0-0.1); Basophils % 0.9 %; Eosinophils # 0.2 10^3/uL (0.0-0.8); Eosinophils % 1.4 %; Hematocrit 47.1 % (37.0-47.0); Hemoglobin 15.2 g/dL (11.5-15.3); Lymphocytes # 3.8 10^3/uL (0.8-4.8); Lymphocytes % 26.8 %; Mean Corpuscular HGB Conc 32.3 g/dL (30.0-36.0); Mean Corpuscular Hemoglobin 28.4 pg (28.0-34.0); Mean Corpuscular Volume 87.9 fL (81-99); Mean Platelet Volume 10.5 fL (7.4-10.4); Monocytes # 1.2 10^3/uL (0.2-0.9); Monocytes % 8.7 %; Neutrophils # 8.83 10^3/uL (1.8-7.7); Neutrophils % 61.8 %; Nucleated Red Blood Cells % 0 %; Platelet Count 315 10^3/cmm (130-400); Red Blood Count 5.36 10^6/uL (4.1-5.3); Red Cell Distribution Width 13.2 % (12.1-15.1); White Blood Count 14.3 10^3/uL (4.0-10.0)
[2020-06-01 22:00] LABS: Lactate (Lactic Acid level) 1.2 mmol/L (0.5-2.2)
[2020-06-01] MEDS: iohexol 300 mg/mL 100 mL Btl IV (22:45)
[2020-06-01] MEDS: iohexol 300 mg/mL 50 mL Btl PO (22:46)
[2020-06-02 00:05] VITALS: PULSE 80; RESP 16; O2SAT 97
[2020-06-02 06:00] VITALS: BP 116/71; PULSE 68; RESP 18; TEMP 36.7; O2SAT 95
[2020-06-02] MEDS: LORazepam 1 mg Tablet PO ×2 (06:14→20:49)
[2020-06-02] MEDS: ibuprofen 600 mg Tablet PO ×2 (06:42→20:49)
[2020-06-02 06:52] LABS: Glucose Point of Care 92 mg/dL (70-110)
[2020-06-02] MEDS: potassium chloride ER 10 mEq Tablet PO (08:15)
[2020-06-02] MEDS: pyridoxine 50 mg Tablet PO (08:15)
[2020-06-02] MEDS: metoprolol succinate ER (24 HR) 100 mg Tablet PO (08:15)
[2020-06-02] MEDS: multivitamin therapeutic Tablet 1 TAB PO (08:15)
[2020-06-02] MEDS: levothyroxine 150 mcg Tablet 75 MCG PO (08:16)
[2020-06-02] MEDS: citalopram 20 mg Tablet PO (08:16)
[2020-06-02] MEDS: pantoprazole DR 40 mg Tablet PO (08:19)
[2020-06-02] MEDS: citalopram 20 mg Tablet 5 MG PO (08:19)
[2020-06-02] MEDS: fluticasone nasal spray 16gm Btl 2 SPRAY INTRANASAL (08:20)
[2020-06-02] MEDS: nystatin cream 30 gm 1 APPLIC TOPICAL ×2 (08:21→20:51)
[2020-06-02] MEDS: nystatin powder 15 gm Btl 1 APPLIC TOPICAL ×2 (08:22→20:51)
[2020-06-02] MEDS: nitrofurantoin SR (BID) 100 mg Capsule PO ×2 (08:30→20:49)
[2020-06-02 13:43] VITALS: BP 139/75; PULSE 73; RESP 20; TEMP 36.6; O2SAT 94
--- NOTE | 2020-06-02 13:44 | PM.NPN ---
Subjective NPU Subjective: Interval history: Carrie presents today expressing concern about her abdomen but without acute pain syndrome. We discussed following up with hospitalist recommendation. She denies any issues related to her mental health outside of anxiety related to the pain. She looks forward to Friday as she reports she was look forward to having things to do. Mental Status Exam MSE Comments: This is a morbidly obese white female with adequate dress, grooming and eye contact. No abnormal movements. Cooperative with exam in mild distress. Speech was normal rate and volume. Mood described as fine, affect congruent. Thought process organized. Thought content: Patient denied suicidal and homicidal ideation, there were no delusions reported or noted, she denied any auditory or visual hallucinations. Attention and concentration appeared intact and memory appeared mostly reliable but none were formally tested. She is alert and oriented x3. Insight and judgment fair, impulse control is improving. Vitals/I&O/Wt Last Vital Signs Temp 98.7 F 06/02/20 20:50 Pulse 77 06/02/20 20:50 Resp 18 06/02/20 20:50 BP 112/66 06/02/20 20:50 Pulse Ox 96 06/02/20 20:50 Data NPU : 06/01/20 21:33 05/26/20 13:36 A&P Additional A&P Information (1) Suicidal ideation: (2) Homicidal ideation: (3) Major depression, recurrent, full remission: (4) Cigarette smoker: (5) Mild intellectual disability: (6) Morbid obesity: Additional A&P Information This is a 35-year-old white female with a long history of intellectual disability, depression and problems interacting with her mother who presents after another conflict reporting lethality and endorsing that it will not be safe for her to return to the place where her mother lives. 1. Continue current medication. 2. Encourage individual, group and milieu therapy. 3. Continue every 15 minute checks for safety. 4. She finally got accepted to the program but will not discharge until Friday which is their first time they can fit her in. 5. Appreciate hospitalist consult and will follow the recommendations. Involuntary Hold Information 96 Hour Hold: 96 Hour Involuntary Admission: Yes Attestations NPU Medical Necessity Statement*: Inpatient hospitalization the medically necessary of the clinically appropriate intervention at this time. We will monitor medications make changes as indicated. She will be discharged Friday morning. Coding Level of Care Code Acute Presser First for Kleber Ramos
[2020-06-02] MEDS: LORazepam 0.5 mg Tablet PO (14:18)
[2020-06-02] MEDS: HYDROcodone-acetaminophen 5-325 mg Tablet 1 TAB PO (14:25)
[2020-06-02] MEDS: lisinopril 20 mg Tablet PO (20:49)
[2020-06-02] MEDS: magnesium oxide 400 mg tablet PO (20:49)
[2020-06-02] MEDS: trazodone 100 mg Tablet PO (20:49)
[2020-06-02] MEDS: loratadine 10 mg Tablet PO (20:49)
[2020-06-02 20:50] VITALS: BP 112/66; PULSE 77; RESP 18; TEMP 37.1; O2SAT 96
[2020-06-02] MEDS: FESOTERODINE 4 MG 4 EACH PO (20:50)
[2020-06-03 06:00] VITALS: BP 130/76; PULSE 68; RESP 18; TEMP 37.1; O2SAT 95
[2020-06-03] MEDS: LORazepam 1 mg Tablet PO ×2 (06:17→20:21)
[2020-06-03] MEDS: fluticasone nasal spray 16gm Btl 2 SPRAY INTRANASAL (09:04)
[2020-06-03] MEDS: pyridoxine 50 mg Tablet PO (09:05)
[2020-06-03] MEDS: citalopram 20 mg Tablet 5 MG PO (09:06)
[2020-06-03] MEDS: pantoprazole DR 40 mg Tablet PO (09:06)
[2020-06-03] MEDS: potassium chloride ER 10 mEq Tablet PO (09:06)
[2020-06-03] MEDS: citalopram 20 mg Tablet PO (09:06)
[2020-06-03] MEDS: metoprolol succinate ER (24 HR) 100 mg Tablet PO (09:06)
[2020-06-03] MEDS: nitrofurantoin SR (BID) 100 mg Capsule PO ×2 (09:07→20:21)
[2020-06-03] MEDS: multivitamin therapeutic Tablet 1 TAB PO (09:07)
[2020-06-03] MEDS: levothyroxine 150 mcg Tablet 75 MCG PO (09:08)
[2020-06-03] MEDS: HYDROcodone-acetaminophen 5-325 mg Tablet 1 TAB PO (09:17)
[2020-06-03 14:00] VITALS: BP 134/81; PULSE 106; RESP 16; TEMP 36.6; O2SAT 96
[2020-06-03] MEDS: LORazepam 0.5 mg Tablet PO (14:30)
--- NOTE | 2020-06-03 15:34 | PM.NPN ---
Subjective NPU Subjective: Interval history: Charity presented today a little less optimistic about the future because she reports that her aunt is telling her that she is not going to have her phone and she is been at take away all kinds of things that she goes to this new facility. We discussed not allowing this conversation to deter her from the best circumstance for herself. We agreed we would work with the treatment team on Friday to talk to her and to figure out exactly was going on before we jump to conclusions. She was endorsing less issues with pain than yesterday. Mental Status Exam MSE Comments: This is a morbidly obese white female with adequate dress, grooming and eye contact. No abnormal movements. Cooperative with exam in mild distress. Speech was normal rate and volume. Mood described as a little down, affect congruent. Thought process organized. Thought content: Patient denied suicidal and homicidal ideation, there were no delusions reported or noted, she denied any auditory or visual hallucinations. Attention and concentration appeared intact and memory appeared mostly reliable but none were formally tested. She is alert and oriented x3. Insight and judgment fair, impulse control is improving. Vitals/I&O/Wt Last Vital Signs Temp 97.9 F 06/03/20 14:00 Pulse 106 H 06/03/20 14:00 Resp 16 06/03/20 14:00 BP 134/81 06/03/20 14:00 Pulse Ox 96 06/03/20 14:00 Weight last 48 hrs Weight Data NPU : 06/01/20 21:33 05/26/20 13:36 A&P Additional A&P Information (1) Suicidal ideation: (2) Homicidal ideation: (3) Major depression, recurrent, full remission: (4) Cigarette smoker: (5) Mild intellectual disability: (6) Morbid obesity: Additional A&P Information This is a 35-year-old white female with a long history of intellectual disability, depression and problems interacting with her mother who presents after another conflict reporting lethality and endorsing that it will not be safe for her to return to the place where her mother lives. 1. Continue current medication. 2. Encourage individual, group and milieu therapy. 3. Continue every 15 minute checks for safety. 4. She finally got accepted to the program but will not discharge until Friday which is their first time they can fit her in. 5. Appreciate hospitalist consult and will follow the recommendations. Involuntary Hold Information 96 Hour Hold: 96 Hour Involuntary Admission: Yes Attestations NPU Medical Necessity Statement*: Inpatient hospitalization the medically necessary of the clinically appropriate intervention at this time. We will monitor medications make changes as indicated. She will be discharged Friday morning. Coding Level of Care Code Acute Commissioned Security Officer for Kleber Ramos
[2020-06-03 19:19] LABS: Glucose Point of Care 96 mg/dL (70-110)
[2020-06-03 19:19] LABS: Glucose Point of Care 110 mg/dL (70-110)
[2020-06-03 19:19] LABS: Glucose Point of Care 110 mg/dL (70-110)
[2020-06-03 19:19] LABS: Glucose Point of Care 165 mg/dL (70-110)
[2020-06-03 19:19] LABS: Glucose Point of Care 95 mg/dL (70-110)
[2020-06-03 19:19] LABS: Glucose Point of Care 98 mg/dL (70-110)
[2020-06-03 19:38] LABS: Glucose Point of Care 111 mg/dL (70-110)
[2020-06-03 20:00] VITALS: BP 106/68; PULSE 76; RESP 19; TEMP 36.8; O2SAT 96
[2020-06-03] MEDS: trazodone 100 mg Tablet PO (20:21)
[2020-06-03] MEDS: FESOTERODINE 4 MG 4 EACH PO (20:21)
[2020-06-03] MEDS: lisinopril 20 mg Tablet PO (20:21)
[2020-06-03] MEDS: magnesium oxide 400 mg tablet PO (20:21)
[2020-06-03] MEDS: loratadine 10 mg Tablet PO (20:21)
[2020-06-03] MEDS: nystatin powder 15 gm Btl 1 APPLIC TOPICAL (20:22)
--- NOTE | 2020-06-03 20:39 | PC.NURSE ---
CPAP OFFERED PATIENT CPAP. PT DECLINED AT THIS TIME
--- NOTE | 2020-06-03 21:48 | PC.NURSE ---
CPAP PT IS NOW USING CPAP MACHINE. 1:1 SITTER WITH PATIENT.
[2020-06-04] MEDS: HYDROcodone-acetaminophen 5-325 mg Tablet 1 TAB PO ×2 (04:30→14:04)
[2020-06-04 05:49] VITALS: BP 159/93; PULSE 75; RESP 18; TEMP 36.4; O2SAT 96
[2020-06-04 05:58] VITALS: BMI 65.1
[2020-06-04] MEDS: LORazepam 1 mg Tablet PO ×2 (06:20→20:55)
[2020-06-04 07:00] LABS: Glucose Point of Care 104 mg/dL (70-110)
[2020-06-04] MEDS: multivitamin therapeutic Tablet 1 TAB PO (08:19)
[2020-06-04] MEDS: potassium chloride ER 10 mEq Tablet PO (08:19)
[2020-06-04] MEDS: fluticasone nasal spray 16gm Btl 2 SPRAY INTRANASAL (08:19)
[2020-06-04] MEDS: citalopram 20 mg Tablet PO (08:19)
[2020-06-04] MEDS: pantoprazole DR 40 mg Tablet PO (08:19)
[2020-06-04] MEDS: metoprolol succinate ER (24 HR) 100 mg Tablet PO (08:19)
[2020-06-04] MEDS: nitrofurantoin SR (BID) 100 mg Capsule PO ×2 (08:19→21:02)
[2020-06-04] MEDS: pyridoxine 50 mg Tablet PO (08:20)
[2020-06-04] MEDS: levothyroxine 150 mcg Tablet 75 MCG PO (08:21)
[2020-06-04] MEDS: citalopram 20 mg Tablet 5 MG PO (08:22)
--- NOTE | 2020-06-04 09:35 | P.PN_ITS ---
Subjective NPU Subjective: Interval history: Charity presents today with a resumption of her positive mood. She is not thinking about the things her aunt was saying at this point and is focused on discharge and where she is going. She denied any major issues, no reports of pain or any problems or side effects of the medication. We will check with the treatment team for discharge planning in the morning. Mental Status Exam MSE Comments: This is a morbidly obese white female with adequate dress, grooming and eye contact. No abnormal movements. Cooperative with exam in no acute distress. Speech was normal rate and volume. Mood described as pretty good, affect congruent. Thought process organized. Thought content: Patient denied suicidal and homicidal ideation, there were no delusions reported or noted, she denied any auditory or visual hallucinations. Attention and concentration appeared intact and memory appeared mostly reliable but none were formally tested. She is alert and oriented x3. Insight and judgment fair, impulse control is improving. Vitals/I&O/Wt Last Vital Signs Temp 97.6 F 06/04/20 05:49 Pulse 75 06/04/20 05:49 Resp 18 06/04/20 05:49 BP 159/93 06/04/20 05:49 Pulse Ox 96 06/04/20 05:49 Weight last 48 hrs Weight 188.604 kg Data NPU : 06/01/20 21:33 05/26/20 13:36 A&P Additional A&P Information (1) Suicidal ideation: (2) Homicidal ideation: (3) Major depression, recurrent, full remission: (4) Cigarette smoker: (5) Mild intellectual disability: (6) Morbid obesity: Additional A&P Information This is a 35-year-old white female with a long history of intellectual disability, depression and problems interacting with her mother who presents after another conflict reporting lethality and endorsing that it will not be safe for her to return to the place where her mother lives. 1. Continue current medication. 2. Encourage individual, group and milieu therapy. 3. Continue every 15 minute checks for safety. 4. She finally got accepted to the program but will not discharge until tomorrow which is their first time they can fit her in. 5. Appreciate hospitalist consult and will follow the recommendations. Involuntary Hold Information 96 Hour Hold: 96 Hour Involuntary Admission: Yes Attestations NPU Medical Necessity Statement*: Inpatient hospitalization the medically necessary of the clinically appropriate intervention at this time. We will monitor medications make changes as indicated. She will be discharged tomorrow morning. Coding Level of Care Code Acute Powder And [employer] Canning Leader for Kleber Ramos
[2020-06-04 10:53] LABS: Glucose Point of Care 104 mg/dL (70-110)
[2020-06-04] MEDS: ibuprofen 600 mg Tablet PO ×2 (11:10→21:02)
[2020-06-04 14:00] VITALS: BP 137/98; PULSE 92; RESP 18; TEMP 37.1
[2020-06-04] MEDS: LORazepam 0.5 mg Tablet PO (14:04)
--- NOTE | 2020-06-04 20:17 | PC.NURSE ---
UP AD [place] IN KNIG AND BACK TO DAYROOM, APPEARS GRADIOSE, LOUD, SAYS SHE IS LEAVING TOMORROW AND SHE WANTS TO PLAY CARDS WITH THE MEN ON MEN SIDE, INST UNABLE TO DO THIS TONIGHT.. DENIES WANTING TO HARM SELF OR OTHERS.
[2020-06-04 20:26] LABS: Glucose Point of Care 124 mg/dL (70-110)
[2020-06-04] MEDS: trazodone 100 mg Tablet PO (20:54)
[2020-06-04] MEDS: nystatin powder 15 gm Btl 1 APPLIC TOPICAL (20:54)
[2020-06-04] MEDS: nystatin cream 30 gm 1 APPLIC TOPICAL (20:54)
[2020-06-04] MEDS: magnesium oxide 400 mg tablet PO (20:55)
[2020-06-04] MEDS: lisinopril 20 mg Tablet PO (20:55)
[2020-06-04] MEDS: loratadine 10 mg Tablet PO (20:55)
[2020-06-04] MEDS: FESOTERODINE 4 MG 4 EACH PO (20:56)
--- NOTE | 2020-06-04 21:14 | PC.NURSE ---
HAS GONE TO BED, HAS SITTER 1-1 FOR CPAP.
[2020-06-04 21:29] VITALS: BP 127/70; PULSE 69; RESP 18; TEMP 36.4; O2SAT 99
[2020-06-05] MEDS: ondansetron 4 MG Tablet PO (01:33)
[2020-06-05] MEDS: acetaminophen 325 mg Tablet 650 MG PO (01:33)
[2020-06-05 06:00] VITALS: BP 157/85; PULSE 70; RESP 19; TEMP 36.8; O2SAT 93
[2020-06-05] MEDS: LORazepam 1 mg Tablet PO ×2 (06:33→19:31)
[2020-06-05 06:43] LABS: Glucose Point of Care 96 mg/dL (70-110)
[2020-06-05] MEDS: metoprolol succinate ER (24 HR) 100 mg Tablet PO (09:14)
[2020-06-05] MEDS: citalopram 20 mg Tablet 5 MG PO (09:15)
[2020-06-05] MEDS: nitrofurantoin SR (BID) 100 mg Capsule PO ×2 (09:15→19:31)
[2020-06-05] MEDS: pyridoxine 50 mg Tablet PO (09:15)
[2020-06-05] MEDS: citalopram 20 mg Tablet PO (09:15)
[2020-06-05] MEDS: potassium chloride ER 10 mEq Tablet PO (09:16)
[2020-06-05] MEDS: pantoprazole DR 40 mg Tablet PO (09:16)
[2020-06-05] MEDS: levothyroxine 150 mcg Tablet 75 MCG PO (09:16)
[2020-06-05] MEDS: multivitamin therapeutic Tablet 1 TAB PO (09:16)
[2020-06-05] MEDS: HYDROcodone-acetaminophen 5-325 mg Tablet 1 TAB PO ×2 (09:17→19:30)
[2020-06-05] MEDS: fluticasone nasal spray 16gm Btl 2 SPRAY INTRANASAL (09:17)
[2020-06-05 11:35] LABS: Glucose Point of Care 124 mg/dL (70-110)
--- NOTE | 2020-06-05 13:26 | PC.SOCIAL ---
Important Medicare Message Reviewed page 2 updated Medicare Message with guardian June Gould over the phone. She verbalizes understanding. Updated copy in chart.
[2020-06-05 13:56] VITALS: BP 130/85; PULSE 70; RESP 16; TEMP 37.1; O2SAT 96
[2020-06-05] MEDS: LORazepam 0.5 mg Tablet PO (14:02)
[2020-06-05] MEDS: ibuprofen 600 mg Tablet PO (14:23)
--- NOTE | 2020-06-05 14:38 | P.PN_ITS ---
Subjective NPU Subjective: Interval history: Charity dealt well with the setback of being rejected by the facility. We did take the time to call our [employer] systems administrator having concerns about what was clearly discrimination secondary to her weight. She tolerated that well though and was looking forward to discharge tomorrow to the new facility that we found. She denied any issues with her medication. She was very positive about a interaction she had with her nephew that she has a very fine relationship with. She reports eating and sleeping okay Mental Status Exam MSE Comments: This is a morbidly obese white female with adequate dress, grooming and eye contact. No abnormal movements. Cooperative with exam in no acute distress. Speech was normal rate and volume. Mood described as okay, affect congruent. Thought process organized. Thought content: Patient denied suicidal and homicidal ideation, there were no delusions reported or noted, she denied any auditory or visual hallucinations. Attention and concentration appeared intact and memory appeared mostly reliable but none were formally tested. She is alert and oriented x3. Insight and judgment fair, impulse control is improving. Vitals/I&O/Wt Last Vital Signs Temp 98.8 F 06/05/20 13:56 Pulse 70 06/05/20 13:56 Resp 16 06/05/20 13:56 BP 130/85 06/05/20 13:56 Pulse Ox 96 06/05/20 13:56 Weight last 48 hrs Weight 188.604 kg Data NPU : 06/01/20 21:33 05/26/20 13:36 A&P Additional A&P Information (1) Suicidal ideation: (2) Homicidal ideation: (3) Major depression, recurrent, full remission: (4) Cigarette smoker: (5) Mild intellectual disability: (6) Morbid obesity: This is a 35-year-old white female with a long history of intellectual disability, depression and problems interacting with her mother who presents after another conflict reporting lethality and endorsing that it will not be safe for her to return to the place where her mother lives. 1. Continue current medication. 2. Encourage individual, group and milieu therapy. 3. Continue every 15 minute checks for safety. 4. She got rejected by the initial program, but we found another accepting facility for discharge tomorrow. 5. Appreciate hospitalist consult and will follow the recommendations. Involuntary Hold Information 96 Hour Hold: 96 Hour Involuntary Admission: Yes Attestations NPU Medical Necessity Statement*: Inpatient hospitalization the medically necessary of the clinically appropriate intervention at this time. We will monitor medications make changes as indicated. She will be discharged tomorrow morning. Coding Level of Care Code Acute Archival Studies Professor for [facility]
[2020-06-05 16:13] LABS: Glucose Point of Care 104 mg/dL (70-110)
[2020-06-05 17:53] LABS: SARS Covid-2 Antigen Negative (Negative)
[2020-06-05] MEDS: lisinopril 20 mg Tablet PO (19:30)
[2020-06-05] MEDS: trazodone 100 mg Tablet PO (19:30)
[2020-06-05] MEDS: magnesium oxide 400 mg tablet PO (19:31)
[2020-06-05] MEDS: loratadine 10 mg Tablet PO (19:31)
[2020-06-05 19:33] VITALS: BP 133/96; PULSE 71; TEMP 36.7; O2SAT 95
[2020-06-05] MEDS: nystatin cream 30 gm 1 APPLIC TOPICAL (19:45)
[2020-06-05] MEDS: nystatin powder 15 gm Btl 1 APPLIC TOPICAL (19:45)
[2020-06-05] MEDS: FESOTERODINE 4 MG 4 EACH PO (19:46)
[2020-06-05 21:24] LABS: Glucose Point of Care 137 mg/dL (70-110)
[2020-06-06] MEDS: ibuprofen 600 mg Tablet PO ×2 (05:07→16:11)
[2020-06-06] MEDS: LORazepam 1 mg Tablet PO (05:07)
[2020-06-06 05:47] VITALS: BP 151/75; PULSE 89; RESP 18; TEMP 36.7; O2SAT 97
[2020-06-06 06:35] LABS: Glucose Point of Care 99 mg/dL (70-110)
[2020-06-06] MEDS: levothyroxine 150 mcg Tablet 75 MCG PO (09:59)
[2020-06-06] MEDS: potassium chloride ER 10 mEq Tablet PO (09:59)
[2020-06-06] MEDS: pantoprazole DR 40 mg Tablet PO (09:59)
[2020-06-06] MEDS: citalopram 20 mg Tablet PO (09:59)
[2020-06-06] MEDS: nitrofurantoin SR (BID) 100 mg Capsule PO (09:59)
[2020-06-06] MEDS: citalopram 20 mg Tablet 5 MG PO (09:59)
[2020-06-06] MEDS: multivitamin therapeutic Tablet 1 TAB PO (09:59)
[2020-06-06] MEDS: fluticasone nasal spray 16gm Btl 2 SPRAY INTRANASAL (10:00)
[2020-06-06] MEDS: HYDROcodone-acetaminophen 5-325 mg Tablet 1 TAB PO (10:56)
[2020-06-06] MEDS: pyridoxine 50 mg Tablet PO (11:50)
[2020-06-06] MEDS: metoprolol succinate ER (24 HR) 100 mg Tablet PO (11:50)
[2020-06-06 12:02] LABS: Glucose Point of Care 138 mg/dL (70-110)
--- NOTE | 2020-06-06 13:02 | PM.NDC ---
Diagnoses at Discharge Discharge Diagnosis (1) Ventral hernia: Status: Acute Reason for Visit Reason for Visit: 96 HOUR HOLD Brief History: History of Present Illness Charity Blake is a 35 year old female who presented to the emergency department with the following report: Chief Complaint: Psychiatric Symptoms Stated Complaint: 96 HOUR HOLD Time Seen by Provider: 05/22/20 16:53 Source: patient Mode of arrival: ambulatory Limitations: no limitations History of Present Illness: HPI Narrative: Carrie is a 35-year-old female who comes in under 96-hour hold for suicidal ideation. Please see the affidavits for details. Patient denies these reports but she is already been placed under the hold. Patient states that she will cooperate to get this completed. She was admitted to the neuropsychiatric unit for definitive treatment of those issues. The patient was admitted to the neuropsychiatric unit for definitive treatment of those issues. She presents today reporting that things have been rough since her discharge in March. She reports that when she was leaving when she expressed concern about going back and spending time with her mother. She reports that that is what got them to this point. She reports that she and her mother cannot be under the same roof. She reports that her mother just pushes her buttons and she does it on purpose. She endorses having a guardian and payee. She reports that she has enough money to be able to have her own place but that there was a document capable of being independent and so now she is caught between a rock and a hard place. She feels like she cannot go back and live with her mother that either she will or I will end up 6 feet under. But she also feels like no one believes she would be able to function independently. She reports that a place like [facility] or some other assisted living facility will be a good place for her to start and demonstrate that she is capable of independence and possibly moved to an even more independent situation later. She was very all over the place during the interview but we did review the 03/27/2020 inpatient consult. An excerpt is included below as she endorses that it is a good reflection of her situation. We discussed the risks, benefits and alternatives of increasing her Celexa but she reports that she has been on 30 before and it appeared to be too much. We began a discussion of different mood stabilizers that she might be willing to consider to add to her regimen. She reports that she is lost about 185 pounds from taking medications a certain way and she is very anxious about doing anything that might turn her weight loss in the other direction. Per her 03/27/2020 inpatient psychiatric consultation: History of Present Illness Charity Blake is a 34 year old female known to this physician from previous inpatient contact. There is a history of stress within her psychosocial sphere and poor coping skills. Judging from the mental health note from last week, her difficulties at home between she and her mother were increasing. She had a plan to put distance between she and her mother between whom the relationship has been hina for some time. Apparently, that plan failed. In response, she impulsively ingested 20 to lorazepam. She specifically states that this was not a suicide attempt. She occasionally thinks about suicide and if she ever gets to that point, she knows that there is a more lethal way of completing the task. She was simply frustrated with a combination of stress between she and her mother and her difficulty with pain from her abdominal hernia. The patient is in significant emotional distress. She details of the psychosocial situation in which she finds herself. She does not feel that it is healthy that she lives with her mother. She claimed that her mother blames the patient for the patient's father's . There is a history of discord between the 2. She is under legal guardianship to her aunt. While the patient admits that living with her mother is not a emotionally healthy position, she also admits that she has sabotaged many prior placements. She feels that her aunt and the state are trying to figure out where she needs to go next. Her degree of distress was noted. However, when the patient was offered to come to the psychiatric unit on a crisis intervention admission, she absolutely refused. We discussed potential benefits in the form of being able to have a safe place while she and her aunt figured out a better place for her to live than her mother. However the patient again refused stating that she would rather go home and live back with her mother than a come to the psychiatric unit. She continued to deny any suicidal or homicidal ideation. She continued to insist that the events leading to this hospitalization were not intended to cause a suicide and believes that we are cognitively disabled if we think that that was her intent. Admission history and physical note: Charity Blake is a 34 year old female who has history of recurrent admissions to the hospital secondary to psychiatric behaviors, is currently under guardianship to her and secondary to borderline healthy, she has been struggling with depressive disorder, came in today after taking 22 tablets of 1 mg of Ativan. Patient is stating that she was upset, has been going to some emotional turmoil, she is not suicidal, she just wanted to take these many tablets to calm her down. She is denying any plans or feelings to hurt herself. She called her cousin when she took 22 tablets, her cousin called EMS to bring her to the hospital. She received charcoal treatment because her intake was about 1 hour before her arrival to the ER. Patient wanted to go to bathroom to have a bowel movement, she was complaining of abdominal cramps and pain. She endorses history of umbilical hernia. She is denying fever, nausea, vomiting, constipation, dysuria. Diagnostics in the ER revealed sinus tachycardia, hypertensive, drug screen reviewed, polycythemia, no remarkable chemistry findings other than mentioned above Laboratory Tests 03/26/20 03/26/20 17:07 17:38 Urine Opiates Screen Positive H Ur Barbiturates Screen Negative Ur Phencyclidine Scrn Negative Ur Amphetamines Screen Negative U Benzodiazepines Scrn Positive H Urine Cocaine Screen Negative U Marijuana (THC) Screen Negative Ethyl Alcohol < 10 Past psychiatric history: Admission note form last NPU visit with this physician: September 19, 2018 I don't know why they put in here. I got angry because of all the stuff that was going on in my life and people that were trying to tell me what to do. HPI: Charity Blake is a 33-year-old woman who was admitted to the psychiatric unit on the force of affidavits sworn out by Nicole Calero, her correctional case records supervisor and June Del Rio, her aunt. Describe her as complaining of worsening nightmares and exercising poor judgment especially regarding family matters. She was screaming and threatening family members. She has been crying excessively and claiming that people are stealing from her. They specifically state that she denied feeling suicidal or homicidal. Her aunt feels that the medications may look into because her behavior has changed. Carrie acknowledges all of the above as being accurate. She recently has been evicted from her apartment and she and her boyfriend need to find a new place to live. They were evicted because family members came to live with them even when the family members were asked not to. Recently angry at her family members. There are financial issues which are also causing her distress. Her psychiatric history is very confusing. She claims that she has been hospitalized nearly 20 times with multiple hospitalizations at this unit itself. However going back 2 years, there are no records of her being in this hospital. Staff reports that they have seen her here before. I'm unable to find records that would corroborate her story. She says that she does have a psychiatrist that treats her on outpatient basis but has not seen a psychiatrist in over a year. There is an access problem as the patient weighs over 400 pounds and transportation to appointments is problematic so she may not be seeing either her primary care doctor or psychiatrist as often as she would like. However she denies feeling suicidal or homicidal. She denies feeling depressed. She does feel that she is having more seizures than she has had in the past. She feels overwhelmed at times but generally has been hedonic capacity and feels as though she is thinking clearly. She specifically denies needing to be in the hospital and would like to go home. Her medications at this time include buspirone 15 mg 3 times a day, Celexa 25 mg daily and when necessary trazodone and lorazepam. Social history: Patient is currently under guardianship to her aunt. She has a correctional case records supervisor. However her correctional case records supervisor, the one that filed the affidavit, is relatively new to her case and is unfamiliar with her pattern of interpersonal interactions. Mental Status Exam: Patient is a morbidly obese woman who is wheeled to meetings and interviews in a wheelchair. She is nonambulatory. Eye contact is good. Speech is of normal rate and rhythm and easily understood. Information provided is internally consistent and consistent with that in the chart. She is believed to be a reliable informant to the best of her ability. Appearance: hygiene is fair; no gross neurological deficits., AIMS=0 Speech: Speech is of normal rate and rhythm and easily understood. Thought processes: Thought processes are abstract. Judgment is adequate for safety. Associations: intact Psychotic processes: There is no indication of guarding or paranoia. There is no attention to the internal stimuli. Auditory and visual hallucinations are denied. Judgment: Insight is fair. Problem solving skills are adequate for safety. Orientation: The patient is oriented to person, place time and situation. Memory: no deficits noted in immediate, intermediate, or remote spheres. Attention: The patient is alert and interpersonally engaged. Language: Verbalizations are coherent. Fund of knowledge: Fund of knowledge is adequate. Affect/Mood: Affect is consistent with a euthymic mood. Denied suicidal ideation Affective range is appropriate. Psychosis: perception unimpaired except through cognitive distortion; reality testing intact. The patient is requesting to be discharged to go home. Review of her chart, there is no indication that she is at imminent risk to self or others. She would likely benefit from having a medication review but the need is not urgent. She was offered to remain in the hospital and have her medications adjusted while she was here. However she refused and insisted that she be able to go home and take care of her dog and take care of the acute stressor that is causing her difficulty in the form of finding a new residence. Patient will be discharged in regular status if she is able to find transportation to her home. Outpatient psychiatry note of 03/08/2020 Assesment & Plan Assessment: Samantha is at her psychiatric baseline. Plan: -Continue citalopram 25 mg daily. -Continue BuSpar 15 mg 3 times daily. -Continue trazodone 100 mg at night. -Continue Lorazepam 1 mg twice daily and 0.5 mg daily as needed for anxiety. -I spent 4 minutes providing smoking cessation counseling. I gauged her desire to quit and she is not ready to quit. I spoke with her about the health risks of smoking along with her history of smoking. -Continue community support services. -Continue psychotherapy. -She will follow-up with me in 2 months. Outpatient mental health note of 03/23/2020 Charity reported, I'm getting dressed so I can go with my friend to [place]. She is coming to pick me up. I thought I could get dressed while we talk. I've been really emotional lately. I think it will be good to get away from my mom for a bit. We are together all of the time . Hospital Course Hospital Course Charity presented to the emergency department endorsing suicidal and homicidal thoughts and struggling with the challenges of trying to assist with her family. She was admitted to the neuropsychiatric unit for definitive treatment of those issues. On the unit she quickly acclimated to the individual, group and milieu therapies provided it was clear that alternate living arrangements needed obtained for her success as an outpatient. That was greatly challenged by the Covid environment as well as her being diagnosed with latent TB. She was treated for the TB and alternative living arrangements were obtained and she showed a significant improvement. During the hospitalization, patient had routine laboratory studies which were within normal limits except for few outliers. Additionally she had a general medical evaluation which was also within normal limits and revealed no new acute processes except for those identified and treated by hospitalist or mentioned above. Discharge Summary: At the time of discharge, patient was absent lethality or psychosis. Mood and anxiety were well managed. Patient endorsed a plan to follow-up with the aftercare recommendations of the treatment team. Patient was evaluated and deemed to be absent credible lethality, and had achieved the maximum benefit from an inpatient hospitalization, so was discharged. Involuntary Hold Information 96 Hour Hold: 96 Hour Involuntary Admission: Yes Mental Status Exam MSE Comments: This is a morbidly obese white female with adequate dress, grooming and eye contact. No abnormal movements. Cooperative with exam in no acute distress. Speech was normal rate and volume. Mood described as happy, affect congruent. Thought process organized. Thought content: Patient denied suicidal and homicidal ideation, there were no delusions reported or noted, she denied any auditory or visual hallucinations. Attention and concentration appeared intact and memory appeared mostly reliable but none were formally tested. She is alert and oriented x3. Insight and judgment fair, impulse control is improving. Discharge Data Data Completed and Pending: Completed Studies During Hospitalization Category Date Time Status CT abdomen pelvis w con* [id number] Stat Cat Scan 06/01/20 21:16 Completed XR chest 1V winifred ble [id number] Routine Exams 05/26/20 09:00 Completed Pending at discharge Category Date Time Status Mycobacteria, Cul ture w/Fluor Routi ne Lab 05/28/20 00:08 Results Mycobacteria, Cul ture w/Fluor Stat Lab 05/25/20 21:40 Results Mycobacteria, Cul ture w/Fluor Stat Lab 05/26/20 06:00 Results Labs from last 24 hours 06/06/20 06/06/20 06/05/20 11:40 06:32 21:20 POC Glucose 138 H 99 137 H SARS-CoV-2 Ag (Rap id) 06/05/20 06/05/20 16:08 15:13 POC Glucose 104 SARS-CoV-2 Ag (Rap id) Negative Vitals: Last Vital Signs Temp 98.1 F 06/06/20 05:47 Pulse 89 06/06/20 05:47 Resp 18 06/06/20 05:47 BP 151/75 06/06/20 05:47 Pulse Ox 97 06/06/20 05:47 Discharge Plan Discharge Patient Disposition: Home Condition: Stable Prescriptions: New citalopram 20 mg Tablet 20 mg PO DAILY 30 Days Qty: 30 RF: 1 isoniazid 300 mg Tablet 300 mg PO DAILY 30 Days Qty: 30 RF: 1 pyridoxine (vitamin B6) 50 mg Tablet 50 mg PO DAILY 30 Days Qty: 30 RF: 1 Continued multivitamin Tablet 1 tab PO QAM RF: 0 citalopram 10 mg tablet 5 mg PO DAILY 30 Days Qty: 15 RF: 1 lisinopril 20 mg tablet 20 mg PO QPM 30 Days Qty: 30 RF: 1 Midol Complete 500-60-15 mg Tablet 2 tab PO PRN 30 Days Qty: 60 RF: 1 omeprazole 40 mg capsule,delayed release(DR/EC) 40 mg PO DAILY 30 Days Qty: 30 RF: 1 levothyroxine 75 mcg tablet 75 mcg PO DAILY 30 Days Qty: 30 RF: 1 nystatin 100,000 unit/gram cream 1 applic TOPICAL TID 30 Days Qty: 1 RF: 1 Lasix 20 mg tablet 20 mg PO QAM PRN (Reason: Edema) 30 Days Qty: 30 RF: 1 Nystop 100,000 unit/gram powder See Rx Instructions .ROUTE .COMPLEX 30 Days Qty: 30 RF: 1 ibuprofen 600 mg tablet 600 mg PO Q8H PRN (Reason: Pain) 30 Days Qty: 90 RF: 1 albuterol sulfate 90 mcg/actuation HFA aerosol inhaler 2 puff INHALATION Q4H PRN (Reason: Shortness Of Breath) 30 Days Qty: 1 RF: 1 Flonase Allergy Relief 50 mcg/actuation spray,suspension 2 spray INTRANASAL DAILY 30 Days Qty: 1 RF: 1 loratadine 10 mg tablet 10 mg PO QPM 30 Days Qty: 30 RF: 1 naproxen 500 mg tablet 750 mg PO BID PRN (Reason: Migraine Headache) 30 Days Qty: 60 RF: 1 buspirone 15 mg tablet 15 mg PO TID 30 Days Qty: 90 RF: 1 Macrobid 100 mg capsule 100 mg PO BID 30 Days Qty: 60 RF: 1 metoprolol succinate 100 mg capsule,sprinkle,ER 24hr 100 mg PO DAILY 30 Days Qty: 30 RF: 1 magnesium oxide 400 mg magnesium Tablet 400 mg PO QPM 30 Days Qty: 30 RF: 1 lorazepam 1 mg PO BID 30 Days Qty: 60 RF: 1 potassium chloride 10 mEq capsule, extended release See Rx Instructions .ROUTE .COMPLEX 30 Days Qty: 30 RF: 1 tiagabine 4 mg tablet 4 mg PO BID 30 Days Qty: 60 RF: 1 ondansetron 4 mg tablet,disintegrating 4 mg PO Q6H PRN (Reason: nausea and vomiting) 30 Days Qty: 14 RF: 1 Toviaz 4 mg tablet extended release 24 hr 4 mg PO BEDTIME 30 Days Qty: 30 RF: 1 tranexamic acid 650 mg tablet 650 mg PO PRN 30 Days Qty: 30 RF: 1 Changed metformin 500 mg tablet extended release 24 hr 500 mg PO DAILY 30 Days Qty: 30 RF: 1 trazodone 100 mg tablet 100 mg PO BEDTIME 30 Days Qty: 30 RF: 1 Discharge Orders: Discharge Order (Routine); Ordered 06/06/20 Ordered By: Pasha Lynne Referrals: [facility] [Other] Discharge Diet: Regular Discharge Activity: Resume usual activity Patient Instructions: Clonazepam (By mouth), Pyridoxine (Vitamin B-6) (By mouth), Isoniazid (By mouth), Citalopram (By mouth) Discharge Attestations NPU Time Spent in Discharge Care*: less than 30 min Specific Discharge Activities: Specific discharge activities: educating patient, discussing with correctional casework specialist/social workers/dc planners, documenting/other paperwork and evaluating patient/reviewing data Coding Level of Care Code Acute Barrel Roller for [facility] F[facility] Diagnoses Ventral hernia K43.9
[2020-06-06 13:15] VITALS: BP 151/75; PULSE 89; RESP 18; TEMP 36.7; O2SAT 97
[2020-06-06 13:24] VITALS: BP 151/75; PULSE 89; RESP 18; TEMP 36.7; O2SAT 97
[2020-06-06 14:00] VITALS: RESP 18
[2020-06-06] MEDS: LORazepam 0.5 mg Tablet PO (14:51)
== END 2020-06-06 16:15 | disposition home or self-care (01) | DRG 885 ==
LOC: ER 17:08 → NP 18:00
PROVIDERS: Internal Medicine; Admitting Provider Psychiatry & Neurology Psychiatry; Emergency Provider Emergency Medicine; PCP Family Medicine; Visit Provider Psychiatry & Neurology Psychiatry
DX: F33.42 Major depressive disorder, recurrent, in full remission (principal); R45.851 Suicidal ideations; Z68.44 Body mass index [BMI] 60.0-69.9, adult; I10 Essential (primary) hypertension; D75.1 Secondary polycythemia; E66.01 Morbid (severe) obesity due to excess calories; F17.210 Nicotine dependence, cigarettes, uncomplicated; Z87.442 Personal history of urinary calculi; F70 Mild intellectual disabilities; Z87.440 Personal history of urinary (tract) infections; G47.30 Sleep apnea, unspecified; R45.850 Homicidal ideations; Z22.7 Latent tuberculosis; K43.9 Ventral hernia without obstruction or gangrene; G62.9 Polyneuropathy, unspecified
CPT/HCPCS: 12345; 36415; 36416; 71045; 74177; 80053; 80306; 80307; 82962; 83605; 84443; 84703; 85025; 86480; 87015; 87116; 87206; 87426; 87801; 93005; 94640; 94660; 96372; 99284; J1815; J3535; Q0162; Q9967

== ENCOUNTER → 2020-08-28 08:32 | Outpatient (BNVA) | payer MEDICARE, MEDICAID, SELFPAY | PROVIDERS: PCP Family Medicine; Visit Provider Psychiatry & Neurology Psychiatry | DX: F33.0 Major depressive disorder, recurrent, mild (principal); F70 Mild intellectual disabilities; F17.210 Nicotine dependence, cigarettes, uncomplicated | CPT/HCPCS: 99215 ==

== ENCOUNTER 2022-04-24 19:09 | Emergency (ER) | payer MEDICARE, MEDICAID, SELFPAY ==
[2022-04-24 19:31] VITALS: BP 144/93; PULSE 75; RESP 16; TEMP 36.6; O2SAT 97; BMI 77.3
[2022-04-24 21:04] LABS: Basophils # 0.1 10^3/uL (0.0-0.1); Basophils % 0.5 %; Eosinophils # 0.2 10^3/uL (0.0-0.8); Eosinophils % 1.7 %; Hematocrit 48.9 % (37.0-47.0); Hemoglobin 15.9 g/dL (11.5-15.3); Lymphocytes # 3.4 10^3/uL (0.8-4.8); Lymphocytes % 25.9 %; Mean Corpuscular HGB Conc 32.5 g/dL (30.0-36.0); Mean Corpuscular Volume 86.2 fl (81-99); Mean Platelet Volume 10.1 fL (7.4-10.4); Monocytes % 7.9 %; Neutrophils # 8.26 10^3/uL (1.8-7.7); Neutrophils % 63.4 %; Nucleated Red Blood Cells % 0 %; Platelet Count 334 10^3/cmm (130-400); Red Blood Count 5.67 10^6/uL (4.1-5.3); Red Cell Distribution Width 13.2 % (12.1-15.1)
[2022-04-24 21:23] LABS: HCG, Serum Qual Negative (Negative)
[2022-04-24 21:26] LABS: Alanine Aminotransferase 18 U/L (0-33); Albumin Level 4.5 g/dL (3.5-5.2); Alkaline Phosphatase 102 U/L (35-105); Anion Gap 14.1 (5-19); Aspartate Amino Transferase 15 U/L (0-32); Blood Urea Nitrogen 10 mg/dL (6-20); Calcium 10.2 mg/dL (8.5-10.5); Carbon Dioxide 29 mmol/L (22-29); Chloride 98 mmol/L (98-107); Globulin 3.2 g/dL (1.3-4.6); Glomerular Filtration Rate 139.6 mL/min (90-130); Glucose 110 mg/dL (65-115); Lipase 33 U/L (13-60); Osmolality Calculated 284 mOsm/kg (285-295); Potassium 4.1 mmol/L (3.5-5.1); Sodium 137 mmol/L (136-145); Total Bilirubin 0.2 mg/dL (0.15-1.2); Total Protein 7.7 g/dL (6.6-8.7)
--- NOTE | 2022-04-24 22:14 | CTR_ITS ---
PROCEDURE INFORMATION: Exam: CT Abdomen And Pelvis Without Contrast Exam date and time: 04/24/2022 11:04 PM Age: 37 years old Clinical indication: Abdominal pain; Patient HX: C/O left flank pain; Additional info: L flank pain TECHNIQUE: Imaging protocol: Computed tomography of the abdomen and pelvis without contrast. Radiation optimization: All CT scans at this facility use at least one of these dose optimization techniques: automated exposure control; mA and/or kV adjustment per patient size (includes targeted exams where dose is matched to clinical indication); or iterative reconstruction. COMPARISON: CT abdomen pelvis w con* [id number] 06/01/2020 10:32 PM RADIATION DOSE METRICS: Total DLP (mGy-cm): 1592.35 FINDINGS: Limitations: Patient body habitus, streak and motion artifact limit evaluation. Tubes, catheters and devices: There is a T-shaped intrauterine device in appropriate position. Lungs: The visualized lung bases appear normal. There is a calcified granuloma at the left lung base. Liver: The liver measures 13.5 cm in length at the mid axillary line, mildly enlarged. There is a David's lobe of the liver, anatomic variant. Density measurements in the liver are not diagnostic of hepatic steatosis. Gallbladder and bile ducts: Heterogeneous density in the gallbladder may be secondary to sludge or gallstones. There is no thickening of the gallbladder wall or pericholecystic fluid. Pancreas: The pancreas is normal. Spleen: The spleen is mildly enlarged measuring 14.4 cm in length. There are no enhancing splenic masses. Adrenal glands: The adrenal glands are normal. Kidneys and ureters: There is no hydronephrosis. The previously noted 3 mm calcification in the lower pole of the kidney is no longer identified. However, no renal or ureteral calculi are visualized on today's examination. There is no evidence of fullness of the either renal collecting system or ureters. In the left hemipelvis, posterolateral to the bladder, there is a 3 x 4 mm calcification that was present on the prior examination of 2019 and likely represents a phlebolith lateral to the distal ureter. Stomach and bowel: There is no evidence of small bowel or colonic obstruction. Appendix: No evidence of appendicitis. Intraperitoneal space: No free air. No significant fluid collection. Vasculature: There is no abdominal aortic aneurysm. Lymph nodes: No enlarged retroperitoneal or mesenteric lymph nodes. Urinary bladder: The bladder is smooth contour and contains no calcific opacities. Reproductive: Unremarkable as visualized. Bones/joints: No acute fracture. No evidence of bone destruction. Chronic loss of height of the vertebral bodies of T8, T9 and T10. There is degenerative disc disease and vacuum disc at T8-T9 and T9-T10 Soft tissues: There is a moderate to large umbilical hernia containing adipose tissue in soft tissues measuring 9.6 cm in transaxial diameter x 13.6 cm in long dimension, minimally larger than on the comparison examination, at which time it measured 8.[address]/CT kidney stone [id number] IMPRESSION: 1. No evidence of renal or ureteral calculi at this time. The previously noted 3 mm calculus in the lower pole of the left kidney is not identified and has likely passed. 2. Mild hepatosplenomegaly, not significantly changed from the comparison study. 3. A mild interval increase in size of the moderate to large fatty umbilical hernia. 4. Probable cholelithiasis without evidence for acute cholecystitis. 5. Degenerative disc disease of the lower thoracic spine.
--- NOTE | 2022-04-24 22:15 | ED_ITS ---
HPI - Back Pain/Injury General: Chief Complaint: Back Pain/Injury Stated Complaint: ABD Pain Possible Kidney Stones Time Seen by Provider: 04/24/22 22:09 Source: patient Mode of arrival: ambulatory Limitations: no limitations History of Present Illness: 37-year-old female states been having left-sided f lank pain over the last day. States that sharp pain that radiates to her groin states her pain is currently a 7 out of 10 denies any vomiting or diarrhea denies any fever she denies any dysuria. She states she has had kidney stones in the past and this feels similar. Associated symptoms: Reports abdominal pain; Deny chills or fever(s) Review of Systems Const: Denies: fever(s), chills, body aches or change in appetite Eyes: Denies: blurry vision or eye discomfort ENMT: Denies: throat pain or dental pain Card: Denies: chest pain Resp: Denies: dyspnea GI: Reports: abdominal pain : Reports: flank pain Musc: Denies: neck pain or back pain Skin/Breast: Denies: rash Neuro: Denies: headache(s) Psych: Denies: depression Liang/Lymph: Denies: easy bruising All/Imm: Denies: urticaria PFSH ED PFSH: Medical History Breakthrough seizure Cigarette smoker Flank pain with history of urolithiasis Gastritis History of kidney stones Major depression, recurrent, full remission Migraine Mild intellectual disability Morbid obesity Recurrent UTI Sleep apnea Surgical History Ganglion cyst of dorsum of left wrist History of carpal tunnel surgery Hx of tympanostomy bilateral Left elbow fracture Repair of left elbow fracture/olecranon process Family History Grandfather Tuberculosis Other Alpha galactosidase deficiency Social History Smoking and tobacco status: current every day smoker Alcohol intake: current Alcohol intake frequency: holidays/special occasions only Lives independently: No Household members: family Marital status: Single Current occupational status: disabled Current gender identity: Female Female Reproductive History: Date of last menstrual period: 03/24/22 Physical Exam Const: COMMON NORMALS: no acute distress, patient oriented x3 and healthy appearing HENMT: COMMON NORMALS: normocephalic and atraumatic HEAD & SCALP: normocephalic and atraumatic Eye: COMMON NORMALS: Equal, round and reactive pupils present and EOMs intact bilaterally PUPIL: Yes Equal, round and reactive pupils present Neck/C-Spine: COMMON NORMALS: full ROM and supple Chest: COMMONS NORMALS: normal inspection of the chest and normal palpation of entire chest wall Resp: COMMON NORMALS: normal respiratory effort, No retractions, No use of accessory muscles and clear to auscultation bilaterally AUSCULTATION: clear to auscultation bilaterally Cardio: COMMON NORMALS: regular rate, regular rhythm and No murmurs present (Cardio) RATE: regular rate RHYTHM: regular rhythm GI: COMMON NORMALS: Normal to inspection, nondistended, normoactive bowel sounds present, Soft to palpation, non-tender and no masses PALPATION: Yes Soft to palpation Extremity: COMMON NORMALS: normal to inspection and full ROM Neuro: COMMON NORMALS: patient oriented x3, moves all extremities and no focal motor deficits Psych: COMMON NORMALS: mental status grossly normal, Normal thought process present and cooperative THOUGHT PROCESS: Normal thought process present Skin: COMMON NORMALS: no rashes or lesions noted and no wounds GENERAL SKIN EXAM: no rashes or lesions noted Course Vital Signs: Vital signs: Vital Signs Temperature 97.9 F 04/24/22 23:00 Pulse Rate 90 04/24/22 23:00 Respiratory Rate 18 04/24/22 23:00 Blood Pressure 151/87 04/24/22 23:00 Pulse Oximetry 98 04/24/22 23:00 Oxygen Delivery Me thod 04/24/22 23:00 MDM - Back Pain/Injury Medical Decision Making Patient presents with abdominal pain her exam here is benign CT blood work is all normal she stable for discharge she is to follow-up PCP and return if worsening. Labs 04/24/22 20:48 04/24/22 20:48 Radiology Impressions Abdomen/Pelvis CT 04/24/22 22:14 IMPRESSION: 1. No evidence of renal or ureteral calculi at this time. The previously noted 3 mm calculus in the lower pole of the left kidney is not identified and has likely passed. 2. Mild hepatosplenomegaly, not significantly changed from the comparison study. 3. A mild interval increase in size of the moderate to large fatty umbilical hernia. 4. Probable cholelithiasis without evidence for acute cholecystitis. 5. Degenerative disc disease of the lower thoracic spine. Laboratory Results WBC 13.0 10^3/uL (4.0-10.0) H 04/24/22 20:48 RBC 5.67 10^6/uL (4.1-5.3) H 04/24/22 20:48 Hgb 15.9 g/dL (11.5-15.3) H 04/24/22 20:48 Hct 48.9 % (37.0-47.0) H 04/24/22 20:48 MCV 86.2 fl (81-99) 04/24/22 20:48 MCH 28.0 pg (28.0-34.0) 04/24/22 20:48 MCHC 32.5 g/dL (30.0-36.0) 04/24/22 20:48 RDW 13.2 % (12.1-15.1) 04/24/22 20:48 Plt Count 334 10^3/cmm (130-400) 04/24/22 20:48 MPV 10.1 fL (7.4-10.4) 04/24/22 20:48 Neut % (Auto) 63.4 % 04/24/22 20:48 Lymph % (Auto) 25.9 % 04/24/22 20:48 [place] % (Auto) 7.9 % 04/24/22 20:48 Eos % (Auto) 1.7 % 04/24/22 20:48 Baso % (Auto) 0.5 % 04/24/22 20:48 Neut # (Auto) 8.26 10^3/uL (1.8-7.7) H 04/24/22 20:48 Lymph # (Auto) 3.4 10^3/uL (0.8-4.8) 04/24/22 20:48 [place] # (Auto) 1.0 10^3/uL (0.2-0.9) H 04/24/22 20:48 Eos # (Auto) 0.2 10^3/uL (0.0-0.8) 04/24/22 20:48 Baso # (Auto) 0.1 10^3/uL (0.0-0.1) 04/24/22 20:48 Nucleated RBC % (auto) 0 % 04/24/22 20:48 Nucleated RBCs # 0.0 /100WBC 04/24/22 20:48 Sodium 137 mmol/L (136-145) 04/24/22 20:48 Potassium 4.1 mmol/L (3.5-5.1) 04/24/22 20:48 Chloride 98 mmol/L (98-107) 04/24/22 20:48 Carbon Dioxide 29 mmol/L (22-29) 04/24/22 20:48 Anion Gap 14.1 (5-19) 04/24/22 20:48 BUN 10 mg/dL (6-20) 04/24/22 20:48 Creatinine 0.5 mg/dL (0.5-0.9) 04/24/22 20:48 GFR Calculation 139.6 mL/min (90-130) H 04/24/22 20:48 Glucose 110 mg/dL (65-115) 04/24/22 20:48 Calculated Osmolality 284 mOsm/kg (285-295) L 04/24/22 20:48 Calcium 10.2 mg/dL (8.5-10.5) 04/24/22 20:48 Total Bilirubin 0.2 mg/dL (0.15-1.2) 04/24/22 20:48 AST 15 U/L (0-32) 04/24/22 20:48 ALT 18 U/L (0-33) 04/24/22 20:48 Alkaline Phosphatase 102 U/L (35-105) 04/24/22 20:48 Total Protein 7.7 g/dL (6.6-8.7) 04/24/22 20:48 Albumin 4.5 g/dL (3.5-5.2) 04/24/22 20:48 Globulin 3.2 g/dL (1.3-4.6) 04/24/22 20:48 Lipase 33 U/L (13-60) 04/24/22 20:48 HCG, Qual Negative (Negative) 04/24/22 20:48 Urine Color Yellow (Yellow) 04/24/22 22:12 Urine Appearance Clear (CLEAR) 04/24/22 22:12 Urine pH 5 (5-7) 04/24/22 22:12 Ur Specific [place] 1.030 (1.005-1.030) 04/24/22 22:12 Urine Protein Neg (Negative) 04/24/22 22:12 Urine Glucose (UA) Norm (Normal) 04/24/22 22:12 Urine Ketones 1+ (Negative) H 04/24/22 22:12 Urine Blood Neg (Negative) 04/24/22 22:12 Urine Nitrate Negative (Negative) 04/24/22 22:12 Urine Bilirubin Neg (Negative) 04/24/22 22:12 Urine Urobilinogen 1 mg/dL (Negative) H 04/24/22 22:12 Ur Leukocyte Esterase Negative (Negative) 04/24/22 22:12 Discharge Plan Discharge Patient Disposition: Home Clinical Impression: Abdominal pain Condition: Stable Prescriptions: No Action multivitamin Tablet 1 tab PO QAM amoxicillin-pot clavulanate 875-125 mg tablet 1 tab PO BID 7 Days Qty: 14 0RF citalopram 20 mg Tablet 20 mg PO DAILY 30 Days Qty: 30 1RF isoniazid 300 mg Tablet 300 mg PO DAILY 30 Days Qty: 30 1RF pyridoxine (vitamin B6) 50 mg Tablet 50 mg PO DAILY 30 Days Qty: 30 1RF citalopram 10 mg tablet 5 mg PO DAILY 30 Days Qty: 15 1RF Rx Instructions: take 5 mg with a 20 mg to make 25 mg. lisinopril 20 mg tablet 20 mg PO QPM 30 Days Qty: 30 1RF Midol Complete 500-60-15 mg Tablet 2 tab PO PRN 30 Days Qty: 60 1RF omeprazole 40 mg capsule,delayed release(DR/EC) 40 mg PO DAILY 30 Days Qty: 30 1RF levothyroxine 75 mcg tablet 75 mcg PO DAILY 30 Days Qty: 30 1RF nystatin 100,000 unit/gram cream 1 applic TOPICAL TID 30 Days Qty: 1 1RF Lasix 20 mg tablet 20 mg PO QAM PRN (Reason: Edema) 30 Days Qty: 30 1RF Nystop 100,000 unit/gram powder See Rx Instructions .ROUTE .COMPLEX 30 Days Qty: 30 1RF Rx Instructions: apply topically to affected areas tid ibuprofen 600 mg tablet 600 mg PO Q8H PRN (Reason: Pain) 30 Days Qty: 90 1RF albuterol sulfate 90 mcg/actuation HFA aerosol inhaler 2 puff INHALATION Q4H PRN (Reason: Shortness Of Breath) 30 Days Qty: 1 1RF Flonase Allergy Relief 50 mcg/actuation spray,suspension 2 spray INTRANASAL DAILY 30 Days Qty: 1 1RF metformin 500 mg tablet extended release 24 hr 500 mg PO DAILY 30 Days Qty: 30 1RF loratadine 10 mg tablet 10 mg PO QPM 30 Days Qty: 30 1RF naproxen 500 mg tablet 750 mg PO BID PRN (Reason: Migraine Headache) 30 Days Qty: 60 1RF buspirone 15 mg tablet 15 mg PO TID 30 Days Qty: 90 1RF Rx Instructions: SEE PHARMACY COMMENTS Macrobid 100 mg capsule 100 mg PO BID 30 Days Qty: 60 1RF Rx Instructions: must administer with a meal/food metoprolol succinate 100 mg capsule,sprinkle,ER 24hr 100 mg PO DAILY 30 Days Qty: 30 1RF magnesium oxide 400 mg magnesium Tablet 400 mg PO QPM 30 Days Qty: 30 1RF lorazepam 1 mg PO BID 30 Days Qty: 60 1RF potassium chloride 10 mEq capsule, extended release See Rx Instructions .ROUTE .COMPLEX 30 Days Qty: 30 1RF Rx Instructions: 10 MEQ PO QAM AND TAKES ANOTHER TAB IF NEEDED tiagabine 4 mg tablet 4 mg PO BID 30 Days Qty: 60 1RF trazodone 100 mg tablet 100 mg PO BEDTIME 30 Days Qty: 30 1RF ondansetron 4 mg tablet,disintegrating 4 mg PO Q6H PRN (Reason: nausea and vomiting) 30 Days Qty: 14 1RF Toviaz 4 mg tablet extended release 24 hr 4 mg PO BEDTIME 30 Days Qty: 30 1RF tranexamic acid 650 mg tablet 650 mg PO PRN 30 Days Qty: 30 1RF Rx Instructions: SEE PHARMACY COMMENTS Discharge Orders: Discharge ED (Routine); Ordered 04/25/22 Ordered By: Arie Raza Referrals: Selma Robles MD [Primary Care Provider] - 1-3 days Discharge Diet: Advance as tolerated Discharge Activity: Resume usual activity Patient Instructions: Abdominal Pain (ED) Coding Level of Care Code ED Framing Specialist for Chg Fwd Exam Comprehensive
[2022-04-24 22:16] LABS: Add Urine Microscopic? NO; Charge for UA Resulting for Rev
[2022-04-24 22:25] LABS: Urine Appearance Clear (CLEAR); Urine Color Yellow (Yellow)
[2022-04-24 22:26] LABS: Bilirubin Urine Neg (Negative); Blood Urine Neg (Negative); Glucose Urine UA Norm (Normal); Ketones Urine 1+ (Negative); Leukocyte Esterase Urine Negative (Negative); Nitrate Urine Negative (Negative); Protein Urine Neg (Negative); Urobilinogen Urine 1 mg/dL (Negative); pH Urine 5 (5-7)
[2022-04-24 22:35] VITALS: PULSE 78; RESP 18; TEMP 36.6; O2SAT 98
[2022-04-24 22:39] VITALS: RESP 18
[2022-04-24] MEDS: morphine 4 mg/mL SDV 1 mL IM (22:39)
[2022-04-24] MEDS: ondansetron 2 mg/ML SDV 2 mL 4 MG IM (22:40)
[2022-04-24 23:00] VITALS: BP 151/87; PULSE 90; RESP 18; TEMP 36.6; O2SAT 98
[2022-04-25 02:29] VITALS: BP 140/90; PULSE 76; RESP 18; TEMP 36.6; O2SAT 98
== END 2022-04-25 01:21 | disposition home or self-care (01) ==
PROVIDERS: Emergency Provider Emergency Medicine; PCP Family Medicine
DX: R10.9 Unspecified abdominal pain (principal); Z87.442 Personal history of urinary calculi
CPT/HCPCS: 74176; 80053; 81003; 83690; 84703; 85025; 96372; 99285; J2270; J2405

== ENCOUNTER 2022-05-01 06:00 | Outpatient (RCR) | payer MEDICARE, MEDICAID, SELFPAY | END 2022-05-01 23:59 | disposition home or self-care (01) | LOC: SPT 06:00 | PROVIDERS: PCP Family Medicine; Visit Provider Family Medicine | DX: I89.0 Lymphedema, not elsewhere classified (principal) | CPT/HCPCS: 97161 ==

== ENCOUNTER 2022-05-02 06:00 | Outpatient (RCR) | payer MEDICARE, MEDICAID, SELFPAY | END 2022-05-09 23:59 | disposition home or self-care (01) | LOC: SPT 06:00 | PROVIDERS: PCP Family Medicine; Visit Provider Family Medicine | DX: I89.0 Lymphedema, not elsewhere classified (principal) | CPT/HCPCS: 97140 ==

== ENCOUNTER 2023-02-06 16:36 | Emergency (ER) | payer MEDICARE, MEDICAID, SELFPAY ==
--- NOTE | 2023-02-06 16:37 | USR_ITS ---
PROCEDURE INFORMATION: Exam: US Duplex Left Lower Extremity Veins, Limited Exam date and time: 02/06/2023 5:19 PM Age: 37 years old Clinical indication: Pain; Leg, lower; Left; Additional info: Swelling TECHNIQUE: Imaging protocol: Real-time duplex ultrasound of the left extremity with 2-D coelho scale, color Doppler flow and spectral waveform analysis including responses to compression and other maneuvers (when performed) with image documentation. Limited exam focused on the left lower extremity veins. COMPARISON: US transvaginal [id number] 05/28/2019 12:24 PM FINDINGS: Left deep veins: Unremarkable. The common femoral, femoral, proximal profunda femoral and popliteal veins are patent without thrombus. Normal Doppler waveforms. Normal compressibility and/or augmentation response. Superficial veins: Unremarkable. Saphenofemoral junction is patent without thrombus. Soft tissues: 4.1 cm Perez's cyst. US/[id number] IMPRESSION: 1. Negative for deep venous thrombosis 2. 4.1 cm Perez's cyst.
[2023-02-06 16:39] VITALS: BP 143/95; PULSE 109; RESP 17; TEMP 37.1; O2SAT 96; BMI 74.4
[2023-02-06] MEDS: lidocaine 1% INJ 10 mL (per mL) INJECTION (18:03)
--- NOTE | 2023-02-06 18:06 | W.ED.EXTPRO ---
HPI - Extremity Problem General: Chief complaint: Extremity Problem,Nontraumatic Stated complaint: left leg swollen Time Seen by Provider: 02/06/23 17:24 Source: patient Mode of arrival: ambulatory Limitations: no limitations History of Present Illness: 37-year-old female states she has had redness swelling and pain to her left lower leg. States been going on roughly 5 days states that is became more painful and seems harder in nature she had no drainage she denies any fevers denies any worsening proving factors. Associated symptoms: Deny chest pain, fever(s) or rash Review of Systems Const: Denies: fever(s), chills, body aches or change in appetite ENMT: Denies: throat pain or dental pain Card: Denies: chest pain Resp: Denies: dyspnea GI: Denies: abdominal pain, nausea, vomiting or diarrhea Musc: Reports: extremity pain; Denies: neck pain or back pain Skin/Breast: Denies: rash Neuro: Denies: headache(s) PFSH ED PFSH: Medical History Breakthrough seizure Cigarette smoker Flank pain with history of urolithiasis Gastritis History of kidney stones Major depression, recurrent, full remission Migraine Mild intellectual disability Morbid obesity Recurrent UTI Sleep apnea Surgical History Ganglion cyst of dorsum of left wrist History of carpal tunnel surgery Hx of tympanostomy bilateral Left elbow fracture Repair of left elbow fracture/olecranon process Family History Grandfather Tuberculosis Other Alpha galactosidase deficiency Social History Smoking and tobacco status: current every day smoker Alcohol intake: current Alcohol intake frequency: holidays/special occasions only Lives independently: No Household members: family Marital status: Single Current occupational status: disabled Current gender identity: Female Physical Exam Const: COMMON NORMALS: no acute distress HENMT: COMMON NORMALS: normocephalic and atraumatic HEAD & SCALP: normocephalic and atraumatic Eye: COMMON NORMALS: Equal, round and reactive pupils present PUPIL: Yes Equal, round and reactive pupils present Neck/C-Spine: COMMON NORMALS: supple Chest: COMMONS NORMALS: normal inspection of the chest Resp: COMMON NORMALS: normal respiratory effort Cardio: COMMON NORMALS: regular rate RATE: regular rate GI: INSPECTION: Yes normal to inspection Extremity: NARRATIVE EXTREMITY EXAM: 2 cm abscess to left lower leg with some erythema Procedures Abscess I/D Site: lower extremity Side (if applicable): left Local Anesthetic: lidocaine 1% Amount of anesthesia used (mL): 8 Technique: incised with #11 blade Course Vital Signs: Vital signs: Vital Signs Temperature 98.7 F 02/06/23 16:39 Pulse Rate 109 H 02/06/23 16:39 Respiratory Rate 17 02/06/23 16:39 Blood Pressure 143/95 02/06/23 16:39 Pulse Oximetry 96 02/06/23 16:39 MDM - Extremity (Nontraumatic) Medical Decision Making Patient presents with an abscess that was incised and drained here she did have purulent drainage from it she has no signs of sepsis ultrasound showed no DVT we will start her on Bactrim she is follow-up PCP and return if worsening. Lab Data Radiology Impressions Venous Duplex 02/06/23 16:37 IMPRESSION: 1. Negative for deep venous thrombosis 2. 4.1 cm Perez's cyst. Discharge Plan Discharge Patient Disposition: Home Clinical Impression: Abscess Condition: Stable Prescriptions: New clindamycin HCl 300 mg capsule 300 mg PO TID 7 Days Qty: 21 0RF No Action multivitamin Tablet 1 tab PO QAM buspirone 15 mg tablet 15 mg PO BID Rx Instructions: SEE PHARMACY COMMENTS lorazepam 1 mg tablet 0.5 mg PO DAILY metformin 500 mg tablet extended release 24 hr 500 mg PO BID Myrbetriq 25 mg tablet extended release 24 hr 25 mg PO DAILY aripiprazole 2 mg tablet 2 mg PO DAILY fluoxetine 20 mg capsule 20 mg PO DAILY hydroxyzine HCl 25 mg tablet 25 mg PO TID PRN prazosin 1 mg capsule 1 mg PO DAILY prednisone 20 mg tablet 40 mg PO DAILY 3 Days Qty: 6 0RF lisinopril 20 mg tablet 20 mg PO QPM 30 Days Qty: 30 1RF Midol Complete 500-60-15 mg Tablet 2 tab PO PRN 30 Days Qty: 60 1RF levothyroxine 75 mcg tablet 75 mcg PO DAILY 30 Days Qty: 30 1RF Lasix 20 mg tablet 20 mg PO QAM PRN (Reason: Edema) 30 Days Qty: 30 1RF ibuprofen 600 mg tablet 600 mg PO Q8H PRN (Reason: Pain) 30 Days Qty: 90 1RF albuterol sulfate 90 mcg/actuation HFA aerosol inhaler 2 puff INHALATION Q4H PRN (Reason: Shortness Of Breath) 30 Days Qty: 1 1RF Flonase Allergy Relief 50 mcg/actuation spray,suspension 2 spray INTRANASAL DAILY 30 Days Qty: 1 1RF loratadine 10 mg tablet 10 mg PO QPM 30 Days Qty: 30 1RF magnesium oxide 400 mg magnesium Tablet 400 mg PO QPM 30 Days Qty: 30 1RF lorazepam 1 mg PO BID 30 Days Qty: 60 1RF potassium chloride 10 mEq capsule, extended release See Rx Instructions .ROUTE .COMPLEX 30 Days Qty: 30 1RF Rx Instructions: 10 MEQ PO QAM AND TAKES ANOTHER TAB IF NEEDED tiagabine 4 mg tablet 4 mg PO BID 30 Days Qty: 60 1RF trazodone 100 mg tablet 100 mg PO BEDTIME 30 Days Qty: 30 1RF ondansetron 4 mg tablet,disintegrating 4 mg PO Q6H PRN (Reason: nausea and vomiting) 30 Days Qty: 14 1RF Discharge Orders: Discharge ED (Routine); Ordered 02/06/23 Ordered By: Arie Raza Referrals: Selma Robles MD [Primary Care Provider] - 1-3 days Discharge Diet: Advance as tolerated Discharge Activity: Resume usual activity Patient Instructions: Abscess (ED) Coding Level of Care Code ED Home Health Billing Specialist for Kleber Ramos
== END 2023-02-06 18:35 | disposition home or self-care (01) ==
PROVIDERS: Emergency Provider Emergency Medicine; PCP Family Medicine
DX: L02.416 Cutaneous abscess of left lower limb (principal); M71.22 Synovial cyst of popliteal space [Baker], left knee; F17.210 Nicotine dependence, cigarettes, uncomplicated
CPT/HCPCS: 93971; 99284

== ENCOUNTER 2023-02-26 13:47 | Observation (INO) | payer MEDICARE, MEDICAID, SELFPAY ==
[2023-02-26 14:25] VITALS: BP 150/90; PULSE 93; RESP 18; TEMP 36.6; O2SAT 97; BMI 74.4
--- NOTE | 2023-02-26 15:10 | USCV_ITS ---
Hayden Charity Age: 37 Gender: F : 1985 Exam Date: 02/26/2023 15:40 Ordering Phys: Lilo Hogan Technologist: CT Exam Location: [facility] [place] Indication: redness, cellulitis, large pt PROCEDURES: Venous duplex imaging was performed in left lower extremities. Bilaterally, the common femoral, superficial femoral, profunda femoral, popliteal, posterior tibial, greater saphenous veins, and the peroneal trunk were identified and interrogated in the standard fashion. These veins were found to be easily compressible with spontaneous blood flow. No evidence of insufficiency or thrombus noted. FINDINGS: Normal 2-D Doppler and augmentation and compressibility throughout the lower extremity venous structures. Additional imaging through the proximal calf veins also reveals no thrombus. Limited evaluation of the greater saphenous vein is patent with no thrombus. Technically difficult exam. CONCLUSIONS No DVT left lower extremity. Dr. Safia Cline DO (Electronically Signed) Final Date: 26 February 2023 15:58 S
--- NOTE | 2023-02-26 15:10 | W.ED.EXTPRO ---
Documented by User: LUIS Russell 03/03/23 09:16 HPI - Extremity Problem General: Chief complaint: Extremity Problem,Nontraumatic Stated complaint: Left leg swelling/redness Time Seen by Provider: 02/26/23 14:11 Source: patient Mode of arrival: ambulatory Limitations: no limitations History of Present Illness: Patient is a 37-year-old female presents to ED today along with her caregiver/guardian here for left lower extremity redness. Patient was seen here in the emergency department approximately 3 weeks ago where she had an abscess to her left posterior calf drained. She states she finished her course of antibiotics (clindamycin) following this. She states she had been doing good until Friday when she began noticing some redness. Patient states she was also having symptoms of fevers of up to 103, cough, generally feeling unwell. She states she saw her primary care provider and was told that symptoms are related to a viral infection. Guardian states redness has progressively worsened since that visit. Patient states she has been admitted previously for severe cellulitis. He has not had any fever since Friday. She arrives to the ED with stable vital signs. She is not tachycardic or febrile here. MD Complaint: other (redness to L LE) Onset (ago): day(s) Pain Consistency: constant Location: left and lower extremity Radiation: none Relieving factors: nothing Exacerbating factors: nothing Associated symptoms: Reports no associated symptoms and fever(s) (2 days ago-none since); Deny chest pain Review of Systems Const: Reports: fever(s) (2 days ago-none since); Denies: chills, body aches, fatigue or malaise Card: Denies: chest pain Resp: Denies: dyspnea GI: Denies: abdominal pain, nausea, vomiting or diarrhea Musc: Reports: extremity pain; Denies: neck pain, back pain, extremity swelling, joint pain, joint swelling, joint redness or joint warmth Skin/Breast: Reports: erythema Neuro: Denies: headache(s), numbness in extremities, weakness in extremities or sensory changes [facility] ED PFSH: Medical History Breakthrough seizure Cigarette smoker Flank pain with history of urolithiasis Gastritis History of kidney stones Major depression, recurrent, full remission Migraine Mild intellectual disability Morbid obesity Recurrent UTI Sleep apnea Surgical History Ganglion cyst of dorsum of left wrist History of carpal tunnel surgery Hx of tympanostomy bilateral Left elbow fracture Repair of left elbow fracture/olecranon process Family History Grandfather Tuberculosis Other Alpha galactosidase deficiency Social History Smoking and tobacco status: current every day smoker Alcohol intake: current Alcohol intake frequency: holidays/special occasions only Lives independently: No Household members: family Marital status: Single Current occupational status: disabled Current gender identity: Female Physical Exam Const: COMMON NORMALS: no acute distress, patient oriented x3, no limitations and alert GENERAL APPEARANCE: cooperative NUTRITIONAL APPEARANCE: obese morbidly obese (BMI is over 74) ORIENTATION/CONSCIOUSNESS: Yes awake, Yes oriented to person, Yes oriented to place and Yes oriented to time Resp: COMMON NORMALS: normal respiratory effort and clear to auscultation bilaterally AUSCULTATION: clear to auscultation bilaterally Cardio: COMMON NORMALS: regular rate and regular rhythm RATE: regular rate RHYTHM: regular rhythm Extremity: COMMON NORMALS: full ROM, capillary refill normal and no joint enlargement GENERAL: Yes normal exam except as noted LEFT LOWER EXTREMITY: Yes lower leg OTHER: patient has cellulitis affecting left lower extremity; erythema affecting most of the space between knee/ankle without affecting either joint; some circumferential areas around the calf; no blistering or skin breakdown; no necrosis; no areas of fluctuance noted; no lymphangitic streaking; edema is unable to be assessed due to body habitus-patient is morbidly obese with a BMI of over 74 Neuro: COMMON NORMALS: patient oriented x3, moves all extremities, no focal motor deficits and no sensory deficits noted SENSORIUM/ORIENTATION: Yes alert, Yes oriented to person, Yes oriented to place and Yes oriented to time Skin: NARRATIVE SKIN EXAM: see above Course Consultations: Consultation #1: Dr. Sanchez-will admit to obs Vital Signs: Vital signs: Vital Signs Temperature 97.7 F 02/28/23 16:13 Pulse Rate 71 02/28/23 16:13 Respiratory Rate 17 02/28/23 16:13 Blood Pressure 143/82 02/28/23 16:13 Pulse Oximetry 97 02/28/23 16:13 Oxygen Delivery Me thod CPAP 02/28/23 03:31 Fraction of Inspir ed Oxygen 21 02/27/23 23:34 MDM - Extremity (Nontraumatic) Lab Data 02/26/23 15:30 02/26/23 16:16 Laboratory Results WBC 8.23 10^3/uL (3.29-11.43) 02/26/23 15:30 RBC 5.14 10^6/uL (3.85-5.65) 02/26/23 15:30 Hgb 14.00 g/dL (11.27-16.99) 02/26/23 15:30 Hct 43.5 % (36-47) 02/26/23 15:30 MCV 84.6 fl (85-98) L 02/26/23 15:30 MCH 27.2 pg (27-33) 02/26/23 15:30 MCHC 32.2 g/dL (30-55) 02/26/23 15:30 RDW 13.2 % (12.1-15.1) 02/26/23 15:30 Plt Count 207 10^3/cmm (157-399) 02/26/23 15:30 MPV 10.8 fL (7.4-10.4) H 02/26/23 15:30 Neut % (Auto) 59.6 % 02/26/23 15:30 Lymph % (Auto) 26.4 % 02/26/23 15:30 [place] % (Auto) 11.3 % 02/26/23 15:30 Eos % (Auto) 1.6 % 02/26/23 15:30 Baso % (Auto) 0.6 % 02/26/23 15:30 Neut # (Auto) 4.91 10^3/uL (1.8-7.7) 02/26/23 15:30 Lymph # (Auto) 2.2 10^3/uL (0.8-4.8) 02/26/23 15:30 [place] # (Auto) 0.9 10^3/uL (0.2-0.9) 02/26/23 15:30 Eos # (Auto) 0.1 10^3/uL (0.0-0.8) 02/26/23 15:30 Baso # (Auto) 0.1 10^3/uL (0.0-0.1) 02/26/23 15:30 Nucleated RBC % (auto) 0 % 02/26/23 15:30 Nucleated RBCs # 0.0 /100WBC 02/26/23 15:30 ESR 41 mm/hr (0-15) H 02/26/23 15:30 Sodium 135 mmol/L (136-145) L 02/26/23 16:16 Potassium 4.0 mmol/L (3.5-5.1) 02/26/23 16:16 Chloride 98 mmol/L (98-107) 02/26/23 16:16 Carbon Dioxide 32 mmol/L (22-29) H 02/26/23 16:16 Anion Gap 9.0 (5-19) 02/26/23 16:16 BUN 9 mg/dL (6-20) 02/26/23 16:16 Creatinine 0.6 mg/dL (0.5-0.9) 02/26/23 16:16 GFR Calculation 113.1 mL/min (90-130) 02/26/23 16:16 Glucose 112 mg/dL (65-115) 02/26/23 16:16 Calculated Osmolality 279 mOsm/kg (285-295) L 02/26/23 16:16 Lactic Acid 0.7 mmol/L (0.5-2.2) 02/26/23 16:16 Calcium 9.1 mg/dL (8.5-10.5) 02/26/23 16:16 Total Bilirubin 0.3 mg/dL (0.15-1.2) 02/26/23 16:16 AST 12 U/L (0-32) 02/26/23 16:16 ALT 18 U/L (0-33) 02/26/23 16:16 Alkaline Phosphatase 82 U/L (35-105) 02/26/23 16:16 C-Reactive Protein 135.4 mg/L (0.0-4.9) H 02/26/23 16:16 Total Protein 7.0 g/dL (6.6-8.7) 02/26/23 16:16 Albumin 3.9 g/dL (3.5-5.2) 02/26/23 16:16 Globulin 3.1 g/dL (1.3-4.6) 02/26/23 16:16 Discharge Plan Discharge Patient Disposition: Placed in Observation Admit Provider: Dwight Sanchez Clinical Impression: Cellulitis of left leg Discharge Diet: Diabetic Discharge Activity: Increase activity as tolerated Coding Level of Care Code ED Sales Account Associate for Chg Fwd Documented by User: Flaquito Bautista MD 02/26/23 17:57 HPI - Extremity Problem General: Chief complaint: Extremity Problem,Nontraumatic Stated complaint: Left leg swelling/redness Time Seen by Provider: 02/26/23 14:11 PFSH ED PFSH: Medical History Breakthrough seizure Cigarette smoker Flank pain with history of urolithiasis Gastritis History of kidney stones Major depression, recurrent, full remission Migraine Mild intellectual disability Morbid obesity Recurrent UTI Sleep apnea Surgical History Ganglion cyst of dorsum of left wrist History of carpal tunnel surgery Hx of tympanostomy bilateral Left elbow fracture Repair of left elbow fracture/olecranon process Family History Grandfather Tuberculosis Other Alpha galactosidase deficiency Social History Smoking and tobacco status: current every day smoker Alcohol intake: current Alcohol intake frequency: holidays/special occasions only Lives independently: No Household members: family Marital status: Single Current occupational status: disabled Current gender identity: Female Course Vital Signs: Vital signs: Vital Signs Temperature 97.7 F 02/28/23 16:13 Pulse Rate 71 02/28/23 16:13 Respiratory Rate 17 02/28/23 16:13 Blood Pressure 143/82 02/28/23 16:13 Pulse Oximetry 97 02/28/23 16:13 Oxygen Delivery Me thod CPAP 02/28/23 03:31 Fraction of Inspir ed Oxygen 21 02/27/23 23:34 MDM - Extremity (Nontraumatic) Medical Decision Making Cellulitis, morbid obesity, diabetic--Lilo discussed with hospitalist who recommended admission and IV antibiotics. Lab Data 02/26/23 15:30 02/26/23 16:16 Laboratory Results WBC 8.23 10^3/uL (3.29-11.43) 02/26/23 15:30 RBC 5.14 10^6/uL (3.85-5.65) 02/26/23 15:30 Hgb 14.00 g/dL (11.27-16.99) 02/26/23 15:30 Hct 43.5 % (36-47) 02/26/23 15:30 MCV 84.6 fl (85-98) L 02/26/23 15:30 MCH 27.2 pg (27-33) 02/26/23 15:30 MCHC 32.2 g/dL (30-55) 02/26/23 15:30 RDW 13.2 % (12.1-15.1) 02/26/23 15:30 Plt Count 207 10^3/cmm (157-399) 02/26/23 15:30 MPV 10.8 fL (7.4-10.4) H 02/26/23 15:30 Neut % (Auto) 59.6 % 02/26/23 15:30 Lymph % (Auto) 26.4 % 02/26/23 15:30 [place] % (Auto) 11.3 % 02/26/23 15:30 Eos % (Auto) 1.6 % 02/26/23 15:30 Baso % (Auto) 0.6 % 02/26/23 15:30 Neut # (Auto) 4.91 10^3/uL (1.8-7.7) 02/26/23 15:30 Lymph # (Auto) 2.2 10^3/uL (0.8-4.8) 02/26/23 15:30 [place] # (Auto) 0.9 10^3/uL (0.2-0.9) 02/26/23 15:30 Eos # (Auto) 0.1 10^3/uL (0.0-0.8) 02/26/23 15:30 Baso # (Auto) 0.1 10^3/uL (0.0-0.1) 02/26/23 15:30 Nucleated RBC % (auto) 0 % 02/26/23 15:30 Nucleated RBCs # 0.0 /100WBC 02/26/23 15:30 ESR 41 mm/hr (0-15) H 02/26/23 15:30 Sodium 135 mmol/L (136-145) L 02/26/23 16:16 Potassium 4.0 mmol/L (3.5-5.1) 02/26/23 16:16 Chloride 98 mmol/L (98-107) 02/26/23 16:16 Carbon Dioxide 32 mmol/L (22-29) H 02/26/23 16:16 Anion Gap 9.0 (5-19) 02/26/23 16:16 BUN 9 mg/dL (6-20) 02/26/23 16:16 Creatinine 0.6 mg/dL (0.5-0.9) 02/26/23 16:16 GFR Calculation 113.1 mL/min (90-130) 02/26/23 16:16 Glucose 112 mg/dL (65-115) 02/26/23 16:16 Calculated Osmolality 279 mOsm/kg (285-295) L 02/26/23 16:16 Lactic Acid 0.7 mmol/L (0.5-2.2) 02/26/23 16:16 Calcium 9.1 mg/dL (8.5-10.5) 02/26/23 16:16 Total Bilirubin 0.3 mg/dL (0.15-1.2) 02/26/23 16:16 AST 12 U/L (0-32) 02/26/23 16:16 ALT 18 U/L (0-33) 02/26/23 16:16 Alkaline Phosphatase 82 U/L (35-105) 02/26/23 16:16 C-Reactive Protein 135.4 mg/L (0.0-4.9) H 02/26/23 16:16 Total Protein 7.0 g/dL (6.6-8.7) 02/26/23 16:16 Albumin 3.9 g/dL (3.5-5.2) 02/26/23 16:16 Globulin 3.1 g/dL (1.3-4.6) 02/26/23 16:16 All radiology interpretation(s) finalized by discharge Discharge Plan Discharge Patient Disposition: Placed in Observation Admit Provider: Dwight Sanchez Clinical Impression: Cellulitis of left leg Discharge Diet: Diabetic Discharge Activity: Increase activity as tolerated Coding Level of Care Code ED Sales Account Associate for Kle[employer] Ramos
--- NOTE | 2023-02-26 15:39 | PC.NURSE ---
PT WITH US IN ROOM.
[2023-02-26 15:49] LABS: Basophils # 0.1 10^3/uL (0.0-0.1); Basophils % 0.6 %; Eosinophils # 0.1 10^3/uL (0.0-0.8); Eosinophils % 1.6 %; Hematocrit 43.5 % (36-47); Lymphocytes # 2.2 10^3/uL (0.8-4.8); Lymphocytes % 26.4 %; Mean Corpuscular HGB Conc 32.2 g/dL (30-55); Mean Corpuscular Hemoglobin 27.2 pg (27-33); Mean Corpuscular Volume 84.6 fl (85-98); Mean Platelet Volume 10.8 fL (7.4-10.4); Monocytes # 0.9 10^3/uL (0.2-0.9); Monocytes % 11.3 %; Neutrophils # 4.91 10^3/uL (1.8-7.7); Neutrophils % 59.6 %; Nucleated Red Blood Cells % 0 %; Platelet Count 207 10^3/cmm (157-399); Red Blood Count 5.14 10^6/uL (3.85-5.65); Red Cell Distribution Width 13.2 % (12.1-15.1); White Blood Count 8.23 10^3/uL (3.29-11.43)
[2023-02-26] MEDS: vancomycin 1,000 MG in sodium chloride 0.9% 250 ML 250 MG IV ×2 (15:51→19:49)
[2023-02-26 16:10] LABS: Erythrocyte Sedimentation Rate 41 mm/hr (0-15)
[2023-02-26] MEDS: acetaminophen 500 mg Tablet 1000 MG PO (16:25)
[2023-02-26 16:45] LABS: Alanine Aminotransferase 18 U/L (0-33); Albumin Level 3.9 g/dL (3.5-5.2); Alkaline Phosphatase 82 U/L (35-105); Aspartate Amino Transferase 12 U/L (0-32); Blood Urea Nitrogen 9 mg/dL (6-20); C Reactive Protein 135.4 mg/L (0.0-4.9); Calcium 9.1 mg/dL (8.5-10.5); Carbon Dioxide 32 mmol/L (22-29); Chloride 98 mmol/L (98-107); Globulin 3.1 g/dL (1.3-4.6); Glomerular Filtration Rate 113.1 mL/min (90-130); Glucose 112 mg/dL (65-115); Osmolality Calculated 279 mOsm/kg (285-295); Sodium 135 mmol/L (136-145); Total Bilirubin 0.3 mg/dL (0.15-1.2)
[2023-02-26 16:46] LABS: Lactic Sepsis W/Reflex 0.7 mmol/L (0.5-2.2)
[2023-02-26] MEDS: piperacillin-tazobactam 3.375 GM in sodium chloride 0.9% (plus) 50 ML IV (17:53)
[2023-02-26 17:55] VITALS: BP 138/110; PULSE 96; RESP 20; O2SAT 100
--- NOTE | 2023-02-26 19:07 | PM.HP ---
Providers/Chief Complaint Admitting Physician: Dwight Sanchez DO Primary Care Provider: Selma Robles MD Chief Complaint: Left leg swelling/redness History of Present Illness Charity Blake is a 37 year old female with past medical history of morbid obesity type 2 diabetes not on insulin anxiety disorder and under the drew of the court. Earlier this month patient had a abscess on the back of her left lower extremity this was lysed in the ER without complications she was on antibiotics. This healed normally. Patient states she had a fever on Friday and she was taken to see her PCP. A COVID test was done per the patient which was negative unclear what the status of her lower extremity appeared at the time. The patient states that she was told it was pink but not this red. The left lower extremity got worse with redness and warmth. In the emergency room, febrile vital signs are stable. She does not have a white count elevation. She has minimal abnormalities in sodium and carbon dioxide is normal. The patient asked to be admitted due to pain and limited mobility. Review of Systems Const: Reports: fever(s); Denies: chills Eyes: Denies: change in vision ENMT: Denies: throat pain or nasal congestion Card: Denies: chest pain or palpitations Resp: Denies: dyspnea or productive cough GI: Denies: abdominal pain, nausea, vomiting or change in stool character : Denies: dysuria Musc: Denies: back pain or extremity pain Skin/Breast: Denies: rash or lesions Neuro: Denies: headache(s) or dizziness Psych: Denies: depression Liang/Lymph: Denies: easy bruising or easy bleeding Medications/Allergies Home Medications Medication Instructions Recorded Confirmed Last Taken Type multivitamin 1 tab PO QAM 08/11/19 11/24/22 05/21/20 History nrynggvjmooac-swanlbvq-hfvyfklfir 2 tab PO PRN 30 days #60 tabs 06/06/20 11/24/22 Unknown Rx 500 mg-60 mg-15 mg tablet (Midol Complete) albuterol sulfate 90 mcg/actuation 2 puff inhalation Q4H PRN 06/06/20 11/24/22 Unknown Rx aerosol inhaler Shortness Of Breath 30 days #1 g fluticasone propionate 50 2 spray intranasal DAILY 30 days 06/06/20 11/24/22 Unknown Rx mcg/actuation nasal #1 mL spray,suspension (Flonase Allergy Relief) furosemide 20 mg tablet (Lasix) 20 mg PO QAM PRN Edema 30 days #30 06/06/20 11/24/22 Unknown Rx tabs ibuprofen 600 mg tablet 600 mg PO Q8H PRN Pain 30 days #90 06/06/20 11/24/22 Unknown Rx tabs levothyroxine 75 mcg tablet 75 mcg PO DAILY 30 days #30 tabs 06/06/20 11/24/22 Unknown Rx lisinopril 20 mg tablet 20 mg PO QPM 30 days #30 tabs 06/06/20 11/24/22 Unknown Rx loratadine 10 mg tablet 10 mg PO QPM 30 days #30 tabs 06/06/20 11/24/22 Unknown Rx lorazepam 1 mg PO BID 30 days #60 tabs 06/06/20 11/24/22 Unknown Rx magnesium oxide 400 mg PO QPM 30 days #30 tabs 06/06/20 11/24/22 Unknown Rx ondansetron 4 mg disintegrating 4 mg PO Q6H PRN nausea and 06/06/20 02/01/22 Unknown Rx tablet vomiting 30 days #14 tabs potassium chloride 10 mEq See Rx Instructions .Route 06/06/20 11/24/22 Unknown Rx capsule,extended release .COMPLEX 30 days #30 caps tiagabine 4 mg tablet 4 mg PO BID 30 days #60 tabs 06/06/20 11/24/22 Unknown Rx trazodone 100 mg tablet 100 mg PO BEDTIME 30 days #30 tabs 06/06/20 11/24/22 Unknown Rx aripiprazole 2 mg tablet 2 mg PO DAILY 11/24/22 11/24/22 Unknown History buspirone 15 mg tablet 15 mg PO BID 11/24/22 Unknown History fluoxetine 20 mg capsule 20 mg PO DAILY 11/24/22 11/24/22 Unknown History hydroxyzine HCl 25 mg tablet 25 mg PO TID PRN 11/24/22 11/24/22 Unknown History lorazepam 1 mg tablet 0.5 mg PO DAILY 11/24/22 11/24/22 Unknown History metformin 500 mg tablet,extended 500 mg PO BID 11/24/22 Unknown History release 24 hr mirabegron 25 mg tablet,extended 25 mg PO DAILY 11/24/22 11/24/22 Unknown History release 24 hr (Myrbetriq) prazosin 1 mg capsule 1 mg PO DAILY 11/24/22 11/24/22 Unknown History prednisone 20 mg tablet 40 mg PO DAILY 3 days #6 tabs 11/24/22 11/24/22 Unknown Rx Allergies Allergy/AdvReac Type Severity Reaction Status Date / Time tramadol Allergy Severe ADR-Seizure Verified 11/24/22 13:26 trimethoprim Allergy Severe Unknown Verified 11/24/22 13:26 adhesive Allergy Unknown Unknown Verified 11/24/22 13:26 latex Allergy Unknown Unknown Verified 11/24/22 13:26 Sulfa (Sulfonamide Allergy Unknown Unknown Verified 11/24/22 13:26 Antibiotics) PFSH Acute PFSH: Medical History Breakthrough seizure Cigarette smoker Flank pain with history of urolithiasis Gastritis History of kidney stones Major depression, recurrent, full remission Migraine Mild intellectual disability Morbid obesity Recurrent UTI Sleep apnea Surgical History Ganglion cyst of dorsum of left wrist History of carpal tunnel surgery Hx of tympanostomy bilateral Left elbow fracture Repair of left elbow fracture/olecranon process Family History Grandfather Tuberculosis Other Alpha galactosidase deficiency Social History Smoking and tobacco status: current every day smoker Alcohol intake: current Alcohol intake frequency: holidays/special occasions only Lives independently: No Household members: family Marital status: Single Current occupational status: disabled Current gender identity: Female Vitals/I&O/Wt Last Vital Signs Temp 97.8 F 02/26/23 14:25 Pulse 96 02/26/23 17:55 Resp 20 H 02/26/23 17:55 BP 138/110 02/26/23 17:55 Pulse Ox 100 02/26/23 17:55 O2 Del Method Room Air 02/26/23 14:25 02/26/23 02/26/23 02/26/23 06:59 14:59 22:59 Intake Total 300 / 300 Balance 300 / 300 Weight last 48 hrs Weight 215.456 kg Physical Exam Narrative: Super morbidly obese white female in no acute distress at time of examination Neurologic: Alert and oriented x3, cranial nerves II through XII are grossly intact, nonfocal motor or sensory exam. HEENT head is normocephalic atraumatic pupils round and equal to light and accommodation extraocular muscles are intact there is no scleral icterus neck is obese no JVD carotid bruits or lymphadenopathy. Mucous membranes are moist and pink. She is edentulous on the top and poor dentition on the bottom she states she wears partials. Heart: Regular rate and rhythm normal S1-S2 without murmurs clicks gallops or rubs lungs are clear to auscultation without wheezes rales or rhonchi abdomen is obese soft nontender there is excoriation over her abdomen from scratching able to assess organs. Extremities: Left lower extremity with erythematous edematous and warmth covering the anterior most of the posterior lower extremity. The area that had the abscess actually looks clear there is a scab over the area. Psych: Mood and affect are appropriate for current illness Skin: As above erythema on the left lower extremity and excoriation over her abdomen from scratching Data 02/26/23 15:30 02/26/23 16:16 Micro: Microbiology 02/26/23 15:38 Blood Culture - Preliminary Blood SPECIMEN COLLECTED 02/26/23 15:30 Blood Culture - Preliminary Blood SPECIMEN COLLECTED A&P Assessment and plan (1) Cellulitis of left leg: Zosyn/Vancomycin (2) Morbid obesity: (3) Mild intellectual disability: (4) Diabetes mellitus: on metformin (5) Generalized anxiety disorder: cont home meds (6) HTN (hypertension): cont home meds Attestations Medical Necessity Statement*: Patient is placed in observation for short course of IV antibiotics and then discharged home Coding Level of Care Code Acute Code for [facility] Fwd Diagnoses Cellulitis of left leg L03.116 Morbid obesity E66.01 Mild intellectual disability F70 Diabetes mellitus E11.9 Generalized anxiety disorder F41.1 HTN (hypertension) I10
[2023-02-26 19:15] VITALS: BP 129/85; PULSE 73; RESP 18; TEMP 36.9; O2SAT 94
--- NOTE | 2023-02-26 19:32 | PC.NURSE ---
Verified with pharmacy: patient has one gram of vanc due at this time and received one gram at approximately 1700.
[2023-02-26] MEDS: heparin 5,000 unit/mL INJ 1 mL 5000 UNIT SUBCUT (19:49)
[2023-02-26] MEDS: SUMAtriptan 25 mg Tablet 50 MG PO (20:02)
[2023-02-26] MEDS: hyDROXYzine 25 mg Capsule PO (21:52)
[2023-02-26] MEDS: trazodone 100 mg Tablet PO (22:00)
[2023-02-26] MEDS: LORazepam 1 mg Tablet PO (22:54)
[2023-02-26] MEDS: HYDROcodone-acetaminophen 5-325 mg Tablet 1 TAB PO (23:18)
[2023-02-26 23:35] VITALS: PULSE 74; O2SAT 94
[2023-02-27] VITALS (7 sets, daily range): BP systolic 126–146; BP diastolic 69–99; PULSE 67–76; RESP 16–19; TEMP 36.4–36.7; O2SAT 95–97
[2023-02-27] MEDS: heparin 5,000 unit/mL INJ 1 mL 5000 UNIT SUBCUT ×3 (01:56→18:50)
[2023-02-27] MEDS: piperacillin-tazobactam 3.375 GM in sodium chloride 0.9% (plus) 50 ML IV ×3 (01:56→20:03)
[2023-02-27] MEDS: vancomycin 2,000 MG/400 ML PIGGYBACK 200 MG IV ×2 (05:31→17:03)
--- NOTE | 2023-02-27 10:16 | PC.CHAP ---
Pastoral Care Encounter/Spiritual Assessment Type of Contact [] Declined mobile practice lead visit [] Patient/Family/Request visit [] Outpatient visit [] Follow-up visit [] Physician referral [] Code/Alert [x] Routine visit [] Staff referral [] Actively dying [] Patient sleeping [] Family support [] [] Out of room [] Palliative care [] [x] Receiving care in room [] Pre-surgical visit [] Trauma [] Long length of stay [] ICU visit [] Other: Relational/Emotional Strength [x] Patient feels connected with others/family/visitors/staff [] Distress [] Loneliness/isolation [] Abandonment Spirituality of Patient [x] Person of Kay [] Attends Oriental Orthodox of their Kay [x] Believes in Prayer [] Reads Bible or Latter Day materials [] There are Spiritual issues to be addressed Ne[employer] Interventions [x] Prayer [x] Active listening [x] Non-anxious presence [x] Spiritual/emotional support [] Crisis/trauma care [x] Spiritual counseling [] Bereavement support [] Provided bereavement packet [] Provided Bible/devotional materials [] Provided toy/stuffed animal, coloring book to patient or family member [] Provided Communion [] Anointing/[place] [] Salvation [x] Completed spiritual assessment [] Other: Impact on Illness or Injury [] Angry [] Fearful [] Anxious [] Often cries [] Exhaustion [] Unable to work [] Unable to attend caodaism [] Unable to walk/stand [] Unable to read [] Unable to drive [] Unable to eat/drink [] Unable to sleep [] Unable to be with family [] Patient intubated [] Other: Summary senior hip doing good well be going home and back for rehab Time spent with patient 10 mins
[2023-02-27] MEDS: HYDROcodone-acetaminophen 5-325 mg Tablet 1 TAB PO (11:10)
--- NOTE | 2023-02-27 12:48 | P.PN_ITS ---
Subjective Subjective: Charity Blake is a 37 year old female with past medical history of morbid obesity type 2 diabetes not on insulin anxiety disorder and under the drew of the court.? Earlier this month patient had a abscess on the back of her left lower extremity this was lysed in the ER without complications she was on antibiotics.? This healed normally.? Patient states she had a fever on Friday and she was taken to see her PCP.? A COVID test was done per the patient which was negative unclear what the status of her lower extremity appeared at the time.? The patient states that she was told it was pink but not this red.? The left lower extremity got worse with redness and warmth.? In the emergency room, febrile vital signs are stable.? She does not have a white count elevation.? She has minimal abnormalities in sodium and carbon dioxide is normal.? The patient asked to be admitted due to pain and limited mobility. 02/27/2023: Patient is without significant complaints today. She says the pain is better. He does not like her diet but was told she could get chicken fingers with white gravy. Vitals/I&O/Wt Last Vital Signs Temp 97.6 F 02/27/23 11:17 Pulse 69 02/27/23 11:17 Resp 17 02/27/23 11:17 BP 126/69 02/27/23 11:17 Pulse Ox 97 02/27/23 11:17 O2 Del Method Room Air 02/26/23 19:15 FiO2 21 02/26/23 23:35 02/26/23 02/27/23 02/27/23 22:59 06:59 14:59 Intake Total 550 / 550 50 / 600 1120 / 1120 Balance 550 / 550 50 / 600 1120 / 1120 Weight last 48 hrs Weight 215.456 kg Physical Exam Narrative: Super morbidly obese white female in no acute distress at time of examination Heart: Regular rate and rhythm normal S1-S2 without murmurs clicks gallops or rubs Lungs are clear to auscultation without wheezes rales or rhonchi abdomen is obese soft nontender there is excoriation over her abdomen from scratching able to assess organs. Extremities: Left lower extremity marked improvement. I personally marked the new demarcation between erythema and normal skin. It is approximately 50% better today. Areas of fluctuance noted. The worst of the erythema and edema i s in the medial upper part of lower extremity Data 02/26/23 15:30 02/26/23 16:16 Micro: Microbiology 02/26/23 15:38 Blood Culture - Preliminary Blood SPECIMEN COLLECTED 02/26/23 15:30 Blood Culture - Preliminary Blood SPECIMEN COLLECTED A&P Assessment and plan (1) Cellulitis of left leg: Zosyn/Vancomycin Await another day of IV antibiotics and transition to oral and discharge home. (2) Morbid obesity: Counseled on decreasing calorie intake (3) Mild intellectual disability: (4) Diabetes mellitus: on metformin (5) Generalized anxiety disorder: cont home meds (6) HTN (hypertension): cont home meds Attestations Medical Necessity Statement*: Patient is placed in observation for short course of IV antibiotics and then discharged home Coding Level of Care Code Acute Code for [facility] Fwd Diagnoses Cellulitis of left leg L03.116 Morbid obesity E66.01 Mild intellectual disability F70 Diabetes mellitus E11.9 Generalized anxiety disorder F41.1 HTN (hypertension) I10
[2023-02-27 21:05] LABS: Glucose Point of Care 120 mg/dL (70-110)
[2023-02-27] MEDS: LORazepam 1 mg Tablet PO (22:15)
[2023-02-27] MEDS: trazodone 100 mg Tablet PO (22:15)
[2023-02-28] VITALS: BP 131/85; PULSE 81; RESP 18; TEMP 36.7; O2SAT 94
[2023-02-28] MEDS: heparin 5,000 unit/mL INJ 1 mL 5000 UNIT SUBCUT ×2 (03:02→10:39)
[2023-02-28] MEDS: piperacillin-tazobactam 3.375 GM in sodium chloride 0.9% (plus) 50 ML IV ×2 (03:03→11:40)
[2023-02-28 03:31] VITALS: BP 140/83; PULSE 77; RESP 16; TEMP 36.6; O2SAT 95
[2023-02-28] MEDS: HYDROcodone-acetaminophen 5-325 mg Tablet 1 TAB PO ×3 (03:37→15:44)
[2023-02-28 06:45] LABS: Glucose Point of Care 96 mg/dL (70-110)
[2023-02-28] MEDS: vancomycin 2,000 MG/400 ML PIGGYBACK 200 MG IV (07:47)
[2023-02-28 07:53] VITALS: BP 123/85; PULSE 72; RESP 17; TEMP 36.7; O2SAT 97
[2023-02-28 10:55] LABS: Glucose Point of Care 119 mg/dL (70-110)
--- NOTE | 2023-02-28 11:35 | P.DS_ITS ---
Discharge Providers Date of Admission: 02/26/23 17:45 Date of Discharge: February 28, 2023 Attending Provider at Admission: Dwight Sanchez DO Attending Provider at Discharge: Dwight Sanchez DO Primary Care Provider: Selma Robles MD Diagnoses at Discharge Discharge Diagnosis (1) Cellulitis of left leg: Status: Acute (2) Morbid obesity: Status: Chronic (3) Mild intellectual disability: Status: Chronic (4) Diabetes mellitus: Status: Acute (5) Generalized anxiety disorder: Status: Acute (6) HTN (hypertension): Status: Acute Reason for Visit Reason for Visit: Left leg swelling/redness Brief History: Charity Blake is a 37 year old female with past medical history of morbid obesity type 2 diabetes not on insulin anxiety disorder and under the drew of the court.? Earlier this month patient had a abscess on the back of her left lower extremity this was lysed in the ER without complications she was on antibiotics.? This healed normally.? Patient states she had a fever on Friday and she was taken to see her PCP.? A COVID test was done per the patient which was negative unclear what the status of her lower extremity appeared at the time.? The patient states that she was told it was pink but not this red.? The left lower extremity got worse with redness and warmth.? In the emergency room, febrile vital signs are stable.? She does not have a white count elevation.? She has minimal abnormalities in sodium and carbon dioxide is normal.? The patient asked to be admitted due to pain and limited mobility. Hospital Course Hospital Course He was placed on vancomycin and Zosyn. She had fantastic improvement the following day 50%. We continued antibiotics for another 24 hours and it improved again today. Having less pain and better mobility. She will be discharged home today in stable and improved condition on oral antibiotics Physical Exam Narrative: Super morbidly obese white female in no acute distress at time of examination Heart: Regular rate and rhythm normal S1-S2 without murmurs clicks gallops or rubs Lungs are clear to auscultation without wheezes rales or rhonchi abdomen is obese soft nontender there is excoriation over her abdomen from scratching able to assess organs. Extremities: Left lower extremity markedly improved. Overall the erythema has d ecreased by 50%. There are no areas of fluctuance noted. The worst erythema and edema are located in the mid upper calf and medial aspect of the upper lower extremity. I have personally marked the new demarcation on 02/27 and 02/28 Between erythema and normal skin.? Discharge Data Studies Completed and Pending Completed Studies During Hospitalization Category Date Time Status US venous duplex lower extremity LT [CV venous duplex Ultrasound 02/26/23 15:10 [place] [id number]] Stat Pending at discharge Category Date Time Status Blood Culture Stat Lab 02/26/23 15:38 Results Vancomycin Trough Timed Lab 02/28/23 17:00 Ordered Laboratory Results WBC 8.23 10^3/uL (3.29-11.43) 02/26/23 15:30 RBC 5.14 10^6/uL (3.85-5.65) 02/26/23 15:30 Hgb 14.00 g/dL (11.27-16.99) 02/26/23 15:30 Hct 43.5 % (36-47) 02/26/23 15:30 MCV 84.6 fl (85-98) L 02/26/23 15:30 MCH 27.2 pg (27-33) 02/26/23 15:30 MCHC 32.2 g/dL (30-55) 02/26/23 15:30 RDW 13.2 % (12.1-15.1) 02/26/23 15:30 Plt Count 207 10^3/cmm (157-399) 02/26/23 15:30 MPV 10.8 fL (7.4-10.4) H 02/26/23 15:30 Neut % (Auto) 59.6 % 02/26/23 15:30 Lymph % (Auto) 26.4 % 02/26/23 15:30 Meagher % (Auto) 11.3 % 02/26/23 15:30 Eos % (Auto) 1.6 % 02/26/23 15:30 Baso % (Auto) 0.6 % 02/26/23 15:30 Neut # (Auto) 4.91 10^3/uL (1.8-7.7) 02/26/23 15:30 Lymph # (Auto) 2.2 10^3/uL (0.8-4.8) 02/26/23 15:30 Meagher # (Auto) 0.9 10^3/uL (0.2-0.9) 02/26/23 15:30 Eos # (Auto) 0.1 10^3/uL (0.0-0.8) 02/26/23 15:30 Baso # (Auto) 0.1 10^3/uL (0.0-0.1) 02/26/23 15:30 Nucleated RBC % (auto) 0 % 02/26/23 15:30 Nucleated RBCs # 0.0 /100WBC 02/26/23 15:30 ESR 41 mm/hr (0-15) H 02/26/23 15:30 Sodium 135 mmol/L (136-145) L 02/26/23 16:16 Potassium 4.0 mmol/L (3.5-5.1) 02/26/23 16:16 Chloride 98 mmol/L (98-107) 02/26/23 16:16 Carbon Dioxide 32 mmol/L (22-29) H 02/26/23 16:16 Anion Gap 9.0 (5-19) 02/26/23 16:16 BUN 9 mg/dL (6-20) 02/26/23 16:16 Creatinine 0.6 mg/dL (0.5-0.9) 02/26/23 16:16 GFR Calculation 113.1 mL/min (90-130) 02/26/23 16:16 Glucose 112 mg/dL (65-115) 02/26/23 16:16 POC Glucose 119 mg/dL (70-110) H 02/28/23 10:51 Calculated Osmolality 279 mOsm/kg (285-295) L 02/26/23 16:16 Lactic Acid 0.7 mmol/L (0.5-2.2) 02/26/23 16:16 Calcium 9.1 mg/dL (8.5-10.5) 02/26/23 16:16 Total Bilirubin 0.3 mg/dL (0.15-1.2) 02/26/23 16:16 AST 12 U/L (0-32) 02/26/23 16:16 ALT 18 U/L (0-33) 02/26/23 16:16 Alkaline Phosphatase 82 U/L (35-105) 02/26/23 16:16 C-Reactive Protein 135.4 mg/L (0.0-4.9) H 02/26/23 16:16 Total Protein 7.0 g/dL (6.6-8.7) 02/26/23 16:16 Albumin 3.9 g/dL (3.5-5.2) 02/26/23 16:16 Globulin 3.1 g/dL (1.3-4.6) 02/26/23 16:16 Vitals Last Vital Signs Temp 98.0 F 02/28/23 07:53 Pulse 72 02/28/23 07:53 Resp 17 02/28/23 07:53 BP 123/85 02/28/23 07:53 Pulse Ox 97 02/28/23 07:53 O2 Del Method CPAP 02/28/23 03:31 FiO2 21 02/27/23 23:34 Discharge Plan Discharge Patient Disposition: Home Condition: Stable Prescriptions: New levofloxacin 500 mg tablet 500 mg PO DAILY 10 Days Qty: 10 0RF doxycycline hyclate 100 mg capsule 100 mg PO BID 10 Days Qty: 20 0RF Continued buspirone 15 mg tablet 15 mg PO BID Rx Instructions: SEE PHARMACY COMMENTS metformin 500 mg tablet extended release 24 hr 500 mg PO BID Myrbetriq 25 mg tablet extended release 24 hr 25 mg PO BEDTIME aripiprazole 2 mg tablet 2 mg PO DAILY fluoxetine 20 mg capsule 20 mg PO DAILY hydroxyzine HCl 25 mg tablet 25 mg PO TID PRN (Reason: Anxiety) prazosin 1 mg capsule 1 mg PO BEDTIME lisinopril 20 mg tablet 20 mg PO QPM 30 Days Qty: 30 1RF Midol Complete 500-60-15 mg Tablet 2 tab PO PRN 30 Days Qty: 60 1RF levothyroxine 75 mcg tablet 75 mcg PO DAILY 30 Days Qty: 30 1RF ibuprofen 600 mg tablet 600 mg PO Q8H PRN (Reason: Pain) 30 Days Qty: 90 1RF albuterol sulfate 90 mcg/actuation HFA aerosol inhaler 2 puff INHALATION Q4H PRN (Reason: Shortness Of Breath) 30 Days Qty: 1 1RF fluticasone propionate [Flonase Allergy Relief] 50 mcg/actuation spray,suspension 2 spray INTRANASAL DAILY 30 Days Qty: 1 1RF loratadine 10 mg tablet 10 mg PO QPM 30 Days Qty: 30 1RF magnesium oxide 400 mg magnesium Tablet 400 mg PO QPM 30 Days Qty: 30 1RF lorazepam 1 mg PO BID 30 Days Qty: 60 1RF tiagabine 4 mg tablet 4 mg PO BID 30 Days Qty: 60 1RF ondansetron 4 mg tablet,disintegrating 4 mg PO Q6H PRN (Reason: nausea and vomiting) 30 Days Qty: 14 1RF potassium chloride 10 mEq Tablet Extended Release 10 meq PO DAILY Rx Instructions: and may take 2nd tablet if needed furosemide [Lasix] 20 mg Tablet 20 mg PO QAM Rx Instructions: and may take 2nd tablet as needed 1 tab PO DAILY omeprazole [Prilosec] 40 mg Capsule,Delayed Release(Dr/Ec) 40 mg PO DAILY lorazepam 0.5 mg PO QNOON Rx Instructions: 0.5 mg orally dicyclomine 10 mg PO TID famotidine 20 mg PO BID Nystop 1 applic topical TID PRN (Reason: Rash) sumatriptan succinate 50 mg Tablet 50 mg PO Q2H PRN (Reason: Migraine Headache) Rx Instructions: do not exceed 4 doses per 24 hrs trazodone 150 mg Tablet 150 mg PO QPM Discharge Orders: Discharge Order (Routine); Ordered 02/28/23 Ordered By: Dwight Sanchez Referrals: Selma Robles MD [Primary Care Provider] - 03/14/23 9:15 am Discharge Diet: Diabetic Discharge Activity: Increase activity as tolerated Patient Instructions: Cellulitis, Opioid Safety Activity Restrictions/Additional Instructions: Elevate left lower extremity above heart as possible and especially while sleeping. Discharge Attestations Time Spent in Discharge Care*: less than 30 min Quality Metrics Clinical Quality Measures [ No reported AMI, CVA or VTE this stay] Coding Level of Care Code Acute Code for Chg Fwd Diagnoses Cellulitis of left leg L03.116 Morbid obesity E66.01 Mild intellectual disability F70 Diabetes mellitus E11.9 Generalized anxiety disorder F41.1 HTN (hypertension) I10
[2023-02-28 11:58] VITALS: BP 143/82; PULSE 71; RESP 17; TEMP 36.5; O2SAT 97
[2023-02-28 16:13] VITALS: BP 143/82; PULSE 71; RESP 17; TEMP 36.5; O2SAT 97
== END 2023-02-28 15:55 | disposition home or self-care (01) ==
LOC: ER 17:18 → MEDSURG 17:45
PROVIDERS: Admitting Provider Internal Medicine; Emergency Provider Physician Assistant; PCP Family Medicine; Visit Provider Internal Medicine
DX: L03.116 Cellulitis of left lower limb (principal); E11.628 Type 2 diabetes mellitus with other skin complications; E66.01 Morbid (severe) obesity due to excess calories; Z68.45 Body mass index [BMI] 70 or greater, adult; F70 Mild intellectual disabilities; F41.1 Generalized anxiety disorder; I10 Essential (primary) hypertension; Z79.84 Long term (current) use of oral hypoglycemic drugs; F17.210 Nicotine dependence, cigarettes, uncomplicated
CPT/HCPCS: 36415; 36416; 80053; 82962; 83605; 85025; 85651; 86140; 87040; 93971; 96365; 96366; 96367; 96372; 99285; G0378; J1644; J2543; J3370; J3372; J7050

== ENCOUNTER 2023-05-10 20:59 | Emergency (ER) | payer MEDICARE, MEDICAID, SELFPAY ==
[2023-05-10 21:04] VITALS: BP 123/88; PULSE 104; RESP 18; TEMP 36.8; O2SAT 93; BMI 73.3
--- NOTE | 2023-05-10 23:35 | XRR_ITS ---
PROCEDURE INFORMATION: Exam: XR Chest Exam date and time: 05/11/2023 12:31 AM Age: 38 years old Clinical indication: Shortness of breath; Patient HX: C/O SOB. ; Additional info: Dyspnea TECHNIQUE: Imaging protocol: Radiologic exam of the chest. Views: 1 view. COMPARISON: CR XR chest 1V portable [id number] 05/26/2020 9:14 AM FINDINGS: Lungs: No consolidation. Pleural spaces: No large pleural effusion. No pneumothorax. Heart/Mediastinum: Unremarkable cardiomediastinal silhouette. Bones/joints: No acute abnormality. XR/XR chest 1V portable [id number] IMPRESSION: No acute findings.
--- NOTE | 2023-05-11 00:41 | W.ED.URI ---
HPI - URI/Sore Throat General: Chief Complaint: Shortness of Breath/Dyspnea Stated Complaint: sob hurts to breath sore throat Time Seen by Provider: 05/10/23 21:00 Source: patient Mode of arrival: ambulatory Limitations: no limitations History of Present Illness: Patient is a 38-year-old female presents to ED today with a complaint of cough and feeling short of breath starting earlier today. She states she has not had a cough for a few days now but feels like symptoms worsened today. She has also had some congestion and runny nose as well as a sore throat. No fevers. No sick contacts. MD elicited complaint: cough, sore throat, rhinorrhea and nasal congestion Onset (ago): day(s) Severity: mild Description of mucous: clear Able to tolerate fluids by mouth: Yes Exacerbating factors: nothing Relieving factors: nothing Associated symptoms: Reports nasal congestion; Deny abdominal pain, chills, chest pain, diarrhea, ear or mastoid pain, fever(s), headache(s), nausea, sinus pain or vomiting Treatments prior to arrival: none Review of Systems Const: Denies: fever(s), chills, body aches, fatigue or malaise ENMT: Reports: nasal discharge and nasal congestion; Denies: throat pain, odynophagia, ear or mastoid pain or sinus pain Card: Denies: chest pain Resp: Reports: dyspnea, productive cough and chest congestion; Denies: wheezing, pain on inspiration or hemoptysis GI: Denies: abdominal pain, nausea, vomiting or diarrhea Skin/Breast: Denies: rash Neuro: Denies: headache(s) PFS ED PFSH: Medical History Generalized anxiety disorder Morbid obesity Sleep apnea Migraine Breakthrough seizure Gastritis Flank pain with history of urolithiasis History of kidney stones Recurrent UTI Mild intellectual disability Cigarette smoker Major depression, recurrent, full remission Surgical History Left elbow fracture Repair of left elbow fracture/olecranon process Ganglion cyst of dorsum of left wrist History of carpal tunnel surgery Hx of tympanostomy bilateral Family History Grandfather Tuberculosis Other Alpha galactosidase deficiency Social History Smoking and tobacco/nicotine status: current every day tobacco/nicotine user Alcohol intake: current Alcohol intake frequency: holidays/special occasions only Lives independently: No Household members: family Marital status: Single Current occupational status: disabled Current gender identity: Female Physical Exam Const: COMMON NORMALS: no acute distress, patient oriented x3 and alert GENERAL APPEARANCE: cooperative NUTRITIONAL APPEARANCE: obese (super morbid obesity with BMI of over 73) ORIENTATION/CONSCIOUSNESS: Yes awake, Yes oriented to person, Yes oriented to place and Yes oriented to time HENMT: COMMON NORMALS: normocephalic, atraumatic, hearing grossly normal bilaterally, external ears normal, EAC's normal, TM's normal bilaterally, Normal external nose present, Normal nasal mucous membranes and turbinates present, moist oral mucous membranes, oropharynx normal and gingiva normal HEAD & SCALP: normal to inspection, normocephalic and atraumatic FACE & SINUS: normal facial exam NOSE: Normal external nose present and Normal nasal mucous membranes and turbinates present EXTERNAL EAR: Yes external ears normal EXTERNAL AUDITORY CANAL: EAC's normal TYMPANIC MEMBRANE: TM's normal bilaterally MOUTH: Normal oral and palatal mucosa present and lip normal THROAT: posterior oropharynx normal Eye: GENERAL EYE: appearance normal, both eyes and all related structures Neck/C-Spine: COMMON NORMALS: no lymphadenopathy Resp: COMMON NORMALS: normal respiratory effort and clear to auscultation bilaterally AUSCULTATION: clear to auscultation bilaterally Cardio: COMMON NORMALS: regular rate and regular rhythm RATE: regular rate RHYTHM: regular rhythm Neuro: COMMON NORMALS: patient oriented x3 SENSORIUM/ORIENTATION: Yes alert, Yes oriented to person, Yes oriented to place and Yes oriented to time Course Vital Signs: Vital signs: Vital Signs Temperature 98.2 F 05/10/23 21:04 Pulse Rate 104 H 05/10/23 21:04 Respiratory Rate 18 05/10/23 21:04 Blood Pressure 123/88 05/10/23 21:04 Pulse Oximetry 93 05/10/23 21:04 Oxygen Delivery Me thod Room Air 05/10/23 21:04 MDM - URI/Sore Throat Medical Decision Making CXR negative. Respiratory panel collected and pending. Vitals stable. Patient will be treated conservatively. She already uses an albuterol inhaler. No need for antibiotics at this time. Lab Data Radiology Impressions Chest X-Ray 05/10/23 23:35 IMPRESSION: No acute findings. Laboratory Results Nasal Influ A H1 2009 PCR Not detected (NOT DETECT) 05/11/23 00:59 Adenovirus (PCR) Not detected (NOT DETECT) 05/11/23 00:59 C. pneumoniae DNA (PCR) Not detected (NOT DETECT) 05/11/23 00:59 Coronavirus 229E (PCR) Not detected (NOT DETECT) 05/11/23 00:59 Human Metapneumovir PCR Not detected (NOT DETECT) 05/11/23 00:59 Influenza A (H1) PCR Not detected (NOT DETECT) 05/11/23 00:59 Influenza A (H3) PCR Not detected (NOT DETECT) 05/11/23 00:59 Influenza Type A (PCR) Not detected (NOT DETECT) 05/11/23 00:59 Influenza Type B (PCR) Not detected (NOT DETECT) 05/11/23 00:59 M. pneumoniae (PCR) Not detected (NOT DETECT) 05/11/23 00:59 Parainfluenza 1 (PCR) Not detected (NOT DETECT) 05/11/23 00:59 Parainfluenza 2 (PCR) Not detected (NOT DETECT) 05/11/23 00:59 Parainfluenza 3 (PCR) Not detected (NOT DETECT) 05/11/23 00:59 Parainfluenza 4 (PCR) Not detected (NOT DETECT) 05/11/23 00:59 RSV Type A (PCR) Not detected (NOT DETECT) 05/11/23 00:59 RSV Type B (PCR) Not detected (NOT DETECT) 05/11/23 00:59 Entero/Rhino (PCR) Detected (NOT DETECT) A 05/11/23 00:59 SARS-CoV-2 (PCR) Not detected (NOT DETECT) 05/11/23 00:59 All radiology interpretation(s) finalized by discharge Discharge Plan Discharge Patient Disposition: Home Clinical Impression: Viral upper respiratory tract infection Condition: Stable Prescriptions: New Medrol (Eric) 4 mg tablets,dose pack See Rx Instructions .ROUTE .COMPLEX Qty: 21 0RF Rx Instructions: orally per package directions No Action buspirone 15 mg tablet 15 mg PO BID Rx Instructions: SEE PHARMACY COMMENTS metformin 500 mg tablet extended release 24 hr 500 mg PO BID Myrbetriq 25 mg tablet extended release 24 hr 25 mg PO BEDTIME aripiprazole 2 mg tablet 2 mg PO DAILY fluoxetine 20 mg capsule 20 mg PO DAILY hydroxyzine HCl 25 mg tablet 25 mg PO TID PRN (Reason: Anxiety) prazosin 1 mg capsule 1 mg PO BEDTIME lisinopril 20 mg tablet 20 mg PO QPM 30 Days Qty: 30 1RF Midol Complete 500-60-15 mg Tablet 2 tab PO PRN 30 Days Qty: 60 1RF levothyroxine 75 mcg tablet 75 mcg PO DAILY 30 Days Qty: 30 1RF ibuprofen 600 mg tablet 600 mg PO Q8H PRN (Reason: Pain) 30 Days Qty: 90 1RF albuterol sulfate 90 mcg/actuation HFA aerosol inhaler 2 puff INHALATION Q4H PRN (Reason: Shortness Of Breath) 30 Days Qty: 1 1RF fluticasone propionate [Flonase Allergy Relief] 50 mcg/actuation spray,suspension 2 spray INTRANASAL DAILY 30 Days Qty: 1 1RF loratadine 10 mg tablet 10 mg PO QPM 30 Days Qty: 30 1RF magnesium oxide 400 mg magnesium Tablet 400 mg PO QPM 30 Days Qty: 30 1RF lorazepam 1 mg PO BID 30 Days Qty: 60 1RF tiagabine 4 mg tablet 4 mg PO BID 30 Days Qty: 60 1RF ondansetron 4 mg tablet,disintegrating 4 mg PO Q6H PRN (Reason: nausea and vomiting) 30 Days Qty: 14 1RF potassium chloride 10 mEq Tablet Extended Release 10 meq PO DAILY Rx Instructions: and may take 2nd tablet if needed furosemide [Lasix] 20 mg Tablet 20 mg PO QAM Rx Instructions: and may take 2nd tablet as needed 1 tab PO DAILY omeprazole 40 mg Capsule,Delayed Release(Dr/Ec) 40 mg PO DAILY lorazepam 0.5 mg PO QNOON Rx Instructions: 0.5 mg orally dicyclomine 10 mg PO TID famotidine 20 mg PO BID Nystop 1 applic topical TID PRN (Reason: Rash) sumatriptan succinate 50 mg Tablet 50 mg PO Q2H PRN (Reason: Migraine Headache) Rx Instructions: do not exceed 4 doses per 24 hrs trazodone 150 mg Tablet 150 mg PO QPM Discharge Orders: Discharge ED (Routine); Ordered 05/11/23 Ordered By: Lilo Hogan Referrals: Selma Robles MD [Primary Care Provider] - Activity Restrictions/Additional Instructions: As we discussed you should receive results of your respiratory panel should anything come back positive. You may follow-up with your primary care provider next week if symptoms do not seem to be improving. He may return to the emergency department for severe shortness of breath or difficulty breathing, severe chest pain, fevers, generally feeling worse or unwell, or any other concerns you may have. Coding Level of Care Code ED Counseling Services Director for Kle[facility] Ramos
[2023-05-11] MEDS: methylPREDNISolone sod succ 125 mg/2 mL INJ IM (01:05)
[2023-05-11 02:50] LABS: Adenovirus Not Detected (NOT DETECT); Chlamydia Pneumoniae Not Detected (NOT DETECT); Coronavirus 229E,HKU1,NL63,OC4 Not Detected (NOT DETECT); Human Metapneumovirus Not Detected (NOT DETECT); Human Rhinovirus/Enterovirus Detected (NOT DETECT); Influenza A Not Detected (NOT DETECT); Influenza A H1 Not Detected (NOT DETECT); Influenza A H1-2009 Not Detected (NOT DETECT); Influenza A H3 Not Detected (NOT DETECT); Influenza B Not Detected (NOT DETECT); Mycoplasma Pneumoniae Not Detected (NOT DETECT); Parainfluenza Virus Type 1 Not Detected (NOT DETECT); Parainfluenza Virus Type 2 Not Detected (NOT DETECT); Parainfluenza Virus Type 3 Not Detected (NOT DETECT); Parainfluenza Virus Type 4 Not Detected (NOT DETECT); Respiratory Syncytial Virus A Not Detected (NOT DETECT); Respiratory Syncytial Virus B Not Detected (NOT DETECT); SARS-COV-2 Not Detected (NOT DETECT)
== END 2023-05-11 01:26 | disposition home or self-care (01) ==
PROVIDERS: Emergency Provider Physician Assistant; PCP Family Medicine
DX: J06.9 Acute upper respiratory infection, unspecified (principal); Z11.52 Encounter for screening for COVID-19; Z72.0 Tobacco use
CPT/HCPCS: 71045; 87486; 87581; 87633; 96372; 99284; J2930

== ENCOUNTER 2023-10-27 12:46 | Emergency (ER) | payer MEDICARE, MEDICAID, SELFPAY ==
[2023-10-27 12:49] VITALS: BP 157/88; PULSE 110; RESP 24; TEMP 36.7; O2SAT 98
--- NOTE | 2023-10-27 13:57 | W.ED.HA ---
HPI - Headache General: Chief Complaint: Headache Stated Complaint: headache Time Seen by Provider: 10/27/23 13:53 History of Present Illness: 38-year-old female with a history of migraines, morbid obesity and obstructive sleep apnea who presents emergency room with a migraine headache for the last few days. She has been nauseous. Some photophobia. Her home medications are helping. She says her sleep apnea mask is broken and thinks this is contributing to her migraine. No altered mental status. No focal motor deficits. No fevers. Review of Systems Narrative: Constitutional symptoms: Negative except as documented in HPI. Skin symptoms: Negative except as documented in HPI. Eye symptoms: Negative except as documented in HPI. ENMT symptoms: Negative except as documented in HPI. Respiratory symptoms: Negative except as documented in HPI. Cardiovascular symptoms: Negative except as documented in HPI. Gastrointestinal symptoms: Negative except as documented in HPI. Genitourinary symptoms: Negative except as documented in HPI. Musculoskeletal symptoms: Negative except as documented in HPI. Neurologic symptoms: Negative except as documented in HPI. Psychiatric symptoms: Negative except as documented in HPI. Endocrine symptoms: Negative except as documented in HPI. PFSH ED PFSH: Medical History Generalized anxiety disorder Morbid obesity Sleep apnea Migraine Breakthrough seizure Gastritis Flank pain with history of urolithiasis History of kidney stones Recurrent UTI Mild intellectual disability Cigarette smoker Major depression, recurrent, full remission Surgical History Left elbow fracture Repair of left elbow fracture/olecranon process Ganglion cyst of dorsum of left wrist History of carpal tunnel surgery Hx of tympanostomy bilateral Family History Grandfather Tuberculosis Other Alpha galactosidase deficiency Social History Smoking and tobacco/nicotine status: current every day tobacco/nicotine user Alcohol intake: current Alcohol intake frequency: holidays/special occasions only Lives independently: No Household members: family Marital status: Single Current occupational status: disabled Current gender identity: Female Physical Exam Narrative: EXAM NARRATIVE: General: Alert, no acute distress. Skin: warm and dry Head: Normocephalic Neck: Trachea midline Eye: Extraocular movements are intact. Ears, nose, mouth and throat: Oral mucosa moist Respiratory: Respirations are non-labored Musculoskeletal: Normal ROM Neurological: Alert and oriented, No focal neurological deficit observed. Psychiatric: Cooperative, appropriate mood & affect. Course Vital Signs: Vital signs: Vital Signs Temperature 98.0 F 10/27/23 12:49 Pulse Rate 110 H 10/27/23 12:49 Respiratory Rate 24 H 10/27/23 12:49 Blood Pressure 157/88 10/27/23 12:49 Pulse Oximetry 98 10/27/23 12:49 Oxygen Delivery Me thod Room Air 10/27/23 12:49 MDM - Headache Medical Decision Making Assessment and plan: Intractable migraine headache -IV Zofran, Benadryl, Reglan, Toradol and Decadron in the emergency room. - Discharged home - Discussed plan with patient. Answered any questions. - Evaluation and treatment of this problem were appropriate in the emergency setting. No radiology studies performed this visit Discharge Plan Discharge Patient Disposition: Home Clinical Impression: Migraine Condition: Stable Prescriptions: No Action buspirone 15 mg tablet 15 mg PO BID Rx Instructions: SEE PHARMACY COMMENTS metformin 500 mg tablet extended release 24 hr 500 mg PO BID Myrbetriq 25 mg tablet extended release 24 hr 25 mg PO BEDTIME aripiprazole 2 mg tablet 2 mg PO DAILY fluoxetine 20 mg capsule 20 mg PO DAILY hydroxyzine HCl 25 mg tablet 25 mg PO TID PRN (Reason: Anxiety) prazosin 1 mg capsule 1 mg PO BEDTIME lisinopril 20 mg tablet 20 mg PO QPM 30 Days Qty: 30 1RF Midol Complete 500-60-15 mg Tablet 2 tab PO PRN 30 Days Qty: 60 1RF levothyroxine 75 mcg tablet 75 mcg PO DAILY 30 Days Qty: 30 1RF ibuprofen 600 mg tablet 600 mg PO Q8H PRN (Reason: Pain) 30 Days Qty: 90 1RF albuterol sulfate 90 mcg/actuation HFA aerosol inhaler 2 puff INHALATION Q4H PRN (Reason: Shortness Of Breath) 30 Days Qty: 1 1RF fluticasone propionate [Flonase Allergy Relief] 50 mcg/actuation spray,suspension 2 spray INTRANASAL DAILY 30 Days Qty: 1 1RF loratadine 10 mg tablet 10 mg PO QPM 30 Days Qty: 30 1RF magnesium oxide 400 mg magnesium Tablet 400 mg PO QPM 30 Days Qty: 30 1RF lorazepam 1 mg PO BID 30 Days Qty: 60 1RF tiagabine 4 mg tablet 4 mg PO BID 30 Days Qty: 60 1RF ondansetron 4 mg tablet,disintegrating 4 mg PO Q6H PRN (Reason: nausea and vomiting) 30 Days Qty: 14 1RF Medrol (Eric) 4 mg tablets,dose pack See Rx Instructions .ROUTE .COMPLEX Qty: 21 0RF Rx Instructions: orally per package directions potassium chloride 10 mEq Tablet Extended Release 10 meq PO DAILY Rx Instructions: and may take 2nd tablet if needed furosemide [Lasix] 20 mg Tablet 20 mg PO QAM Rx Instructions: and may take 2nd tablet as needed 1 tab PO DAILY omeprazole 40 mg Capsule,Delayed Release(Dr/Ec) 40 mg PO DAILY lorazepam 0.5 mg PO QNOON Rx Instructions: 0.5 mg orally dicyclomine 10 mg PO TID famotidine 20 mg PO BID Nystop 1 applic topical TID PRN (Reason: Rash) sumatriptan succinate 50 mg Tablet 50 mg PO Q2H PRN (Reason: Migraine Headache) Rx Instructions: do not exceed 4 doses per 24 hrs trazodone 150 mg Tablet 150 mg PO QPM Discharge Orders: Discharge ED (Routine); Ordered 10/27/23 Ordered By: Vani Rodriguez Referrals: Selma Robles MD [Primary Care Provider] - Discharge Diet: Usual diet Discharge Activity: Increase activity as tolerated Patient Instructions: Migraine Headache (ED) Activity Restrictions/Additional Instructions: You will need to call your medical equipment company to get a new mask for your home BiPAP. Thank you for choosing [facility] for your healthcare needs today. Please realize this is an emergency room and that we are providing you with a medical screening exam and this may not be complete and all inclusive of all the testing and or work up that you may need to determine your ailment or severity of your illness. You have been screened and evaluated and felt safe for discharge. Health conditions do change or evolve sometimes and as such it is important that you follow up with your Primary Doctor to be re checked, 3-5 days is a general good time frame for follow up. You are always welcome to return to the ED for re assessment if your symptoms are worsening or you have new concerns Coding Level of Care Code ED Searchlight Operator for Kle[facility] Ramos
[2023-10-27] MEDS: ondansetron 2 mg/ML SDV 2 mL 8 MG IVP (14:27)
[2023-10-27] MEDS: metoclopramide 5 mg/mL SDV 2 mL 10 MG IVP (14:27)
[2023-10-27] MEDS: diphenhydrAMINE 50 mg/mL SDV 1mL 25 MG IVP (14:28)
[2023-10-27] MEDS: ketorolac 30 mg/mL INJ IVP (14:28)
[2023-10-27] MEDS: dexamethasone 10 mg/mL INJ IVP (14:28)
[2023-10-27 14:35] VITALS: BP 146/99; PULSE 83; O2SAT 91
== END 2023-10-27 14:51 | disposition home or self-care (01) ==
PROVIDERS: Emergency Provider Emergency Medicine; PCP Family Medicine
DX: G43.909 Migraine, unspecified, not intractable, without status migrainosus (principal); Z79.84 Long term (current) use of oral hypoglycemic drugs; Z72.0 Tobacco use
CPT/HCPCS: 96374; 96375; 99284; J1100; J1200; J1885; J2405; J2765

== ENCOUNTER → 2023-12-10 12:18 | Outpatient (BNVA) | payer MEDICARE, MEDICAID, SELFPAY | PROVIDERS: PCP Family Medicine; Visit Provider Nurse Practitioner Women's Health | DX: N92.6 Irregular menstruation, unspecified (principal) | CPT/HCPCS: 76830 ==

== ENCOUNTER 2024-09-06 13:11 | Outpatient (CLI) | payer MEDICARE, SELFPAY ==
--- NOTE | 2024-09-06 13:18 | XR_ITS ---
WS: [id number] Exam: XR shoulder RT min 2V* [id number] Date/Time of Exam: 09/06/2024 1:21 PM Reason For Exam: RIGHT SHOULDER PAIN No acute fracture. Minimal degenerative change at the AC joint. Normal soft tissues. XR/XR shoulder RT min 2V* [id number] IMPRESSION: 1. Slight degenerative change at the AC joint otherwise negative RIGHT shoulder .
== END 2024-09-06 13:12 | disposition home or self-care (01) ==
LOC: RAD 13:13
PROVIDERS: PCP Family Medicine; Visit Provider Nurse Practitioner Family
DX: M25.511 Pain in right shoulder (principal); M75.51 Bursitis of right shoulder
CPT/HCPCS: 73030

== ENCOUNTER 2024-09-23 11:48 | Outpatient (CLI) | payer MEDICARE, SELFPAY ==
--- NOTE | 2024-09-23 11:57 | XR_ITS ---
WS: [id number] Exam: XR elbow LT min 3V* [id number] Date/Time of Exam: 09/23/2024 11:58 AM Reason For Exam: PAIN IN LEFT ELBOW No fracture. Healed fracture of the lower humerus stabilized with posterior plate and screw fixation. No hardware complication noted. There are mild posttraumatic degenerative changes of the elbow joint. No joint effusion or significant soft tissue abnormality. XR/XR elbow LT min 3V* [id number] IMPRESSION: 1. Mild posttraumatic DJD of the elbow. 2. Healed fracture of the lower humerus with hardware.
== END 2024-09-23 11:49 | disposition home or self-care (01) ==
PROVIDERS: PCP Family Medicine; Visit Provider Family Medicine
DX: M19.122 Post-traumatic osteoarthritis, left elbow (principal); Z87.81 Personal history of (healed) traumatic fracture
CPT/HCPCS: 73080

== ENCOUNTER → 2025-01-20 14:23 | Outpatient (BNVA) | payer MEDICARE, SELFPAY | PROVIDERS: PCP Family Medicine; Visit Provider Thoracic Surgery (Cardiothoracic Vascular Surgery) | DX: I96 Gangrene, not elsewhere classified (principal); L89.892 Pressure ulcer of other site, stage 2 | CPT/HCPCS: 97597; 99203; J9999 ==

== ENCOUNTER → 2025-02-03 10:54 | Outpatient (BNVA) | payer MEDICARE, SELFPAY | PROVIDERS: PCP Family Medicine; Visit Provider Thoracic Surgery (Cardiothoracic Vascular Surgery) | DX: I96 Gangrene, not elsewhere classified (principal); L02.31 Cutaneous abscess of buttock | CPT/HCPCS: 10060; 87070; 87077; 87186 ==

== ENCOUNTER → 2025-02-10 14:13 | Outpatient (BNVA) | payer MEDICARE, SELFPAY | PROVIDERS: PCP Family Medicine; Visit Provider Thoracic Surgery (Cardiothoracic Vascular Surgery) | DX: I96 Gangrene, not elsewhere classified (principal); L98.411 Non-pressure chronic ulcer of buttock limited to breakdown of skin; Z09 Encounter for follow-up examination after completed treatment for conditions other than malignant neoplasm | CPT/HCPCS: 97597 ==

== ENCOUNTER 2025-02-14 10:23 | Outpatient (CLI) | payer MEDICARE, SELFPAY ==
--- NOTE | 2025-02-14 10:56 | XR_ITS ---
WS: [id number] XR thoracic spine 3V* [id number] REASON FOR EXAM: Back pain after fall FINDINGS: Mild dextroscoliosis. Mild dorsal kyphosis lower thoracic spine. This is associated with mild wedge- shaped compression deformities T9-T12. Compression deformities appear chronic. Thoracic disc spaces are relatively well-preserved with mild endplate sclerosis and osteophytosis in the mid and lower thoracic spine. XR/XR thoracic spine 3V* [id number] IMPRESSION: Mild dorsal kyphosis and degenerative spondylosis as above.
--- NOTE | 2025-02-14 10:56 | XR_ITS ---
WS: [email or web address] XR lumbar spine 2-3V* [id number] REASON FOR EXAM: Back pain after fall FINDINGS: Limited examination due to underexposure in the lateral views. Moderate rotatory dextroscoliosis. Exaggeration of normal lumbar lordosis. Mild compression deformities of L1 and L2 of unknown chronicity. Mild narrowing of the disc spaces L1-2 L3. XR/XR lumbar spine 2-3V* [id number] IMPRESSION: Limited examination. Compression deformities of L1 and L2 as above.
== END 2025-02-14 10:24 | disposition home or self-care (01) ==
PROVIDERS: PCP Family Medicine; Visit Provider Registered Nurse Neonatal Intensive Care
DX: M41.84 Other forms of scoliosis, thoracic region (principal); M43.8X4 Other specified deforming dorsopathies, thoracic region; M25.78 Osteophyte, vertebrae; M41.86 Other forms of scoliosis, lumbar region
CPT/HCPCS: 72072; 72100

== ENCOUNTER → 2025-02-17 14:01 | Outpatient (BNVA) | payer MEDICARE, SELFPAY | PROVIDERS: PCP Family Medicine; Visit Provider Thoracic Surgery (Cardiothoracic Vascular Surgery) | DX: Z09 Encounter for follow-up examination after completed treatment for conditions other than malignant neoplasm (principal); Z87.2 Personal history of diseases of the skin and subcutaneous tissue | CPT/HCPCS: 99212 ==

== ENCOUNTER → 2025-05-03 08:57 | Outpatient (BNVA) | payer MEDICARE, SELFPAY | PROVIDERS: PCP Family Medicine; Visit Provider Podiatrist Foot & Ankle Surgery | DX: E11.42 Type 2 diabetes mellitus with diabetic polyneuropathy (principal); L60.3 Nail dystrophy; G62.9 Polyneuropathy, unspecified; Z79.84 Long term (current) use of oral hypoglycemic drugs | CPT/HCPCS: 11721; 99203 ==